=== PATIENT | female | born 1985 | race Caucasian/White ===

== ENCOUNTER → 2017-07-19 16:30 | Outpatient (CLI) | payer BC, SELFPAY ==
[2017-07-19 18:31] LABS: AST(SGOT) 17 U/L (15-37); Alanine Aminotransfer ALT/SGPT 33 U/L (13-56); Albumin, Serum 3.7 g/dL (3.2-5.0); Alkaline Phosphatase 63 U/L (45-117); Anion Gap 7 (5-15); BUN 13 mg/dL (7-18); BUN/Creat Ratio 17.4 RATIO (10-20); CRP < 2.90 mg/L (0.0-3.0); Calcium,Total 8.8 mg/dL (8.5-10.1); Chloride 108 mmol/L (98-107); Creatinine, Serum 0.74 mg/dL (0.55-1.02); EST Glomerular Filtration Rate 97 mL/min (>60); Est Glom Filt Rate - Afr Amer 118 mL/min (>60); Globulin 3.7 g/dL (2.2-4.2); Glucose 82 mg/dL (74-106); Potassium 3.5 mmol/L (3.5-5.1); Protein, Total 7.4 g/dL (6.4-8.2); Rheumatoid Factor < 10.0 IU/mL (<15); Sodium Level 138 mmol/L (136-145)
[2017-07-19 18:34] LABS: Absolute Neutrophil Count 4.3 X10^3/uL (2.0-7.7); Basophil# 0.04 X10^3/uL; Basophil% 0.5 % (0-1); Eosinophil# 0.14 X10^3/uL; Eosinophils% 1.7 % (0-5); Hematocrit 38.3 % (37-47); Hemoglobin 12.4 g/dl (12.0-15.0); Lymphocyte % 35.4 % (19-41); Mean Corp Hgb Conc 32.4 g/gl (32-36); Mean Corpuscular Hgb 32.7 pg (27.0-32.0); Mean Corpuscular Volume 101.1 fL (81-99); Mean Platelet Vol. 9.6 fl (6.2-12.0); Monocyte# 0.77 X10^3/uL; Monocyte% 9.4 % (0-10); Neutrophil # 4.32 X10^3/uL (2.7-7.7); Neutrophil % 52.8 % (47-70); Platelet Count 361 K/mm3 (150-450); RBC Distribution Width CV 12.9 % (11.6-14.6); RBC Distribution Width SD 47.2 fl (35.1-43.9); Red Blood Count 3.79 M/mm3 (4.2-5.4); White Blood Count 8.2 K/mm3 (4.4-11.0)
[2017-07-19 18:39] LABS: POSITIVE COUNT NO; POSITIVE DIFFERENTIAL NO; POSITIVE MORPHOLOGY NO
[2017-07-19 18:42] LABS: Erythrocyte Sedimentation Rate 6 mm/hr (0-20)
[2017-07-21 14:43] LABS: ANTINUCLEAR ANTIBODIES DIRECT Negative (Negative)
[2017-07-26 07:14] LABS: CCP IgG Antibodies 8 units (0-19); HEPATITIS B SURFACE AG Negative (Negative); HLA B27 Negative (.); Hep B Surface Antibodies Reactive (.); Hep C Antibodies <0.1 s/co ratio (0.0-0.9)
== END ==
PROVIDERS: Family Provider Family Medicine; PCP Family Medicine; Visit Provider Internal Medicine Rheumatology
DX: M06.4 Inflammatory polyarthropathy (principal); M21.40 Flat foot [pes planus] (acquired), unspecified foot
CPT/HCPCS: 36415; 80053; 81374; 85025; 85652; 86038; 86140; 86200; 86431; 86706; 86803; 87340

== ENCOUNTER → 2017-10-25 08:49 | Outpatient (CLI) | payer BC, SELFPAY ==
[2017-10-25 10:24] LABS: Absolute Lymphocyte Count 2.88 X10^3/ul (0.83-4.51); Absolute Neutrophil Count 4.9 X10^3/uL (2.0-7.7); Basophil# 0.03 X10^3/uL; Basophil% 0.3 % (0-1); Eosinophil# 0.12 X10^3/uL; Eosinophils% 1.4 % (0-5); Hematocrit 35.6 % (37-47); Hemoglobin 11.7 g/dl (12.0-15.0); Lymphocyte # 2.88 X10^3/ul (4.0); Lymphocyte % 33.1 % (19-41); Mean Corp Hgb Conc 32.9 g/gl (32-36); Mean Corpuscular Hgb 32.1 pg (27.0-32.0); Mean Corpuscular Volume 97.5 fL (81-99); Mean Platelet Vol. 9.5 fl (6.2-12.0); Monocyte# 0.71 X10^3/uL; Monocyte% 8.2 % (0-10); Neutrophil # 4.94 X10^3/uL (2.7-7.7); Neutrophil % 56.8 % (47-70); Platelet Count 341 K/mm3 (150-450); RBC Distribution Width CV 12.4 % (11.6-14.6); RBC Distribution Width SD 44.2 fl (35.1-43.9); Red Blood Count 3.65 M/mm3 (4.2-5.4); White Blood Count 8.7 K/mm3 (4.4-11.0)
[2017-10-25 10:27] LABS: POSITIVE COUNT NO; POSITIVE DIFFERENTIAL NO; POSITIVE MORPHOLOGY NO
[2017-10-25 10:41] LABS: ALB/GLOB Ratio 1.1 RATIO (0.9-2.4); AST(SGOT) 29 U/L (15-37); Alanine Aminotransfer ALT/SGPT 34 U/L (13-56); Albumin, Serum 3.9 g/dL (3.2-5.0); Alkaline Phosphatase 71 U/L (45-117); Anion Gap 7 (5-15); BUN 13 mg/dL (7-18); Calcium,Total 8.6 mg/dL (8.5-10.1); Chloride 103 mmol/L (98-107); Creatinine, Serum 0.76 mg/dL (0.55-1.02); EST Glomerular Filtration Rate 94 mL/min (>60); Est Glom Filt Rate - Afr Amer 114 mL/min (>60); Globulin 3.5 g/dL (2.2-4.2); Glucose 75 mg/dL (74-106); Potassium 3.2 mmol/L (3.5-5.1); Protein, Total 7.4 g/dL (6.4-8.2); Sodium Level 138 mmol/L (136-145)
== END ==
PROVIDERS: Family Provider Family Medicine; PCP Family Medicine; Visit Provider Internal Medicine Rheumatology
DX: M06.4 Inflammatory polyarthropathy (principal); M21.40 Flat foot [pes planus] (acquired), unspecified foot; K21.9 Gastro-esophageal reflux disease without esophagitis; F41.1 Generalized anxiety disorder
CPT/HCPCS: 36415; 80053; 85025

== ENCOUNTER → 2018-01-15 15:40 | Outpatient (CLI) | payer BC, SELFPAY ==
[2018-01-15 17:36] LABS: Absolute Lymphocyte Count 2.35 X10^3/ul (0.83-4.51); Absolute Neutrophil Count 4.5 X10^3/uL (2.0-7.7); Basophil# 0.04 X10^3/uL; Basophil% 0.5 % (0-1); Eosinophil# 0.15 X10^3/uL; Eosinophils% 1.9 % (0-5); Hematocrit 40.8 % (37-47); Hemoglobin 13.4 g/dl (12.0-15.0); Lymphocyte # 2.35 X10^3/ul (4.0); Lymphocyte % 30.2 % (19-41); Mean Corp Hgb Conc 32.8 g/gl (32-36); Mean Corpuscular Volume 100.5 fL (81-99); Mean Platelet Vol. 9.5 fl (6.2-12.0); Monocyte# 0.69 X10^3/uL; Monocyte% 8.9 % (0-10); Neutrophil # 4.54 X10^3/uL (2.7-7.7); Neutrophil % 58.4 % (47-70); Platelet Count 370 K/mm3 (150-450); RBC Distribution Width CV 12.3 % (11.6-14.6); RBC Distribution Width SD 44.8 fl (35.1-43.9); Red Blood Count 4.06 M/mm3 (4.2-5.4); White Blood Count 7.8 K/mm3 (4.4-11.0)
[2018-01-15 17:38] LABS: POSITIVE COUNT NO; POSITIVE DIFFERENTIAL NO; POSITIVE MORPHOLOGY NO
[2018-01-15 17:51] LABS: ALB/GLOB Ratio 0.9 RATIO (0.9-2.4); AST(SGOT) 24 U/L (15-37); Alanine Aminotransfer ALT/SGPT 38 U/L (13-56); Albumin, Serum 3.7 g/dL (3.2-5.0); Alkaline Phosphatase 73 U/L (45-117); Anion Gap 6 (5-15); BUN 10 mg/dL (7-18); BUN/Creat Ratio 11.5 RATIO (10-20); Calcium,Total 8.7 mg/dL (8.5-10.1); Chloride 107 mmol/L (98-107); Creatinine, Serum 0.87 mg/dL (0.55-1.02); EST Glomerular Filtration Rate 81 mL/min (>60); Est Glom Filt Rate - Afr Amer 98 mL/min (>60); Globulin 4.2 g/dL (2.2-4.2); Glucose 87 mg/dL (74-106); Potassium 3.8 mmol/L (3.5-5.1); Protein, Total 7.9 g/dL (6.4-8.2); Sodium Level 139 mmol/L (136-145)
== END ==
PROVIDERS: Family Provider Family Medicine; PCP Family Medicine; Visit Provider Internal Medicine Rheumatology
DX: M06.4 Inflammatory polyarthropathy (principal); Z79.899 Other long term (current) drug therapy; M21.40 Flat foot [pes planus] (acquired), unspecified foot; K21.9 Gastro-esophageal reflux disease without esophagitis; F41.1 Generalized anxiety disorder
CPT/HCPCS: 36415; 80053; 85025

== ENCOUNTER → 2018-08-07 11:07 | Outpatient (CLI) | payer BC, SELFPAY ==
[2018-08-07 12:38] LABS: Absolute Lymphocyte Count 2.95 X10^3/ul (0.83-4.51); Absolute Neutrophil Count 6.4 X10^3/uL (2.0-7.7); Basophil# 0.05 X10^3/uL; Basophil% 0.5 % (0-1); Eosinophil# 0.14 X10^3/uL; Eosinophils% 1.4 % (0-5); Hematocrit 42.3 % (37-47); Hemoglobin 13.7 g/dl (12.0-15.0); Lymphocyte # 2.95 X10^3/ul (4.0); Lymphocyte % 29.1 % (19-41); Mean Corp Hgb Conc 32.4 g/gl (32-36); Mean Corpuscular Hgb 31.6 pg (27.0-32.0); Mean Corpuscular Volume 97.7 fL (81-99); Mean Platelet Vol. 9.6 fl (6.2-12.0); Monocyte# 0.62 X10^3/uL; Monocyte% 6.1 % (0-10); Neutrophil # 6.35 X10^3/uL (2.7-7.7); Neutrophil % 62.7 % (47-70); Platelet Count 399 K/mm3 (150-450); RBC Distribution Width CV 12.8 % (11.6-14.6); RBC Distribution Width SD 46.1 fl (35.1-43.9); Red Blood Count 4.33 M/mm3 (4.2-5.4); White Blood Count 10.1 K/mm3 (4.4-11.0)
[2018-08-07 12:40] LABS: POSITIVE COUNT NO; POSITIVE DIFFERENTIAL NO; POSITIVE MORPHOLOGY NO
[2018-08-07 12:54] LABS: AST(SGOT) 39 U/L (15-37); Alanine Aminotransfer ALT/SGPT 62 U/L (13-56); Albumin, Serum 4.1 g/dL (3.2-5.0); Alkaline Phosphatase 92 U/L (45-117); Anion Gap 11 (5-15); BUN 10 mg/dL (7-18); Calcium,Total 9.2 mg/dL (8.5-10.1); Chloride 104 mmol/L (98-107); Creatinine, Serum 0.91 mg/dL (0.55-1.02); EST Glomerular Filtration Rate 77 mL/min (>60); Est Glom Filt Rate - Afr Amer 93 mL/min (>60); Glucose 87 mg/dL (74-106); Potassium 3.7 mmol/L (3.5-5.1); Protein, Total 8.1 g/dL (6.4-8.2); Sodium Level 141 mmol/L (136-145)
== END ==
PROVIDERS: Family Provider Family Medicine; PCP Family Medicine; Referring Provider Internal Medicine Rheumatology; Visit Provider Internal Medicine Rheumatology
DX: M06.4 Inflammatory polyarthropathy (principal); Z79.899 Other long term (current) drug therapy; M21.40 Flat foot [pes planus] (acquired), unspecified foot; K21.9 Gastro-esophageal reflux disease without esophagitis; F41.1 Generalized anxiety disorder
CPT/HCPCS: 36415; 80053; 85025

== ENCOUNTER → 2018-10-23 08:28 | Outpatient (CLI) | payer BC, SELFPAY ==
[2018-10-23 10:19] LABS: Absolute Lymphocyte Count 3.28 X10^3/ul (0.83-4.51); Absolute Neutrophil Count 7.5 X10^3/uL (2.0-7.7); Basophil# 0.04 X10^3/uL; Basophil% 0.3 % (0-1); Eosinophil# 0.15 X10^3/uL; Eosinophils% 1.3 % (0-5); Hematocrit 41.4 % (37-47); Hemoglobin 13.9 g/dl (12.0-15.0); Lymphocyte # 3.28 X10^3/ul (4.0); Mean Corp Hgb Conc 33.6 g/gl (32-36); Mean Corpuscular Hgb 31.7 pg (27.0-32.0); Mean Corpuscular Volume 94.3 fL (81-99); Mean Platelet Vol. 9.5 fl (6.2-12.0); Monocyte# 0.78 X10^3/uL; Monocyte% 6.6 % (0-10); Neutrophil # 7.46 X10^3/uL (2.7-7.7); Neutrophil % 63.6 % (47-70); Platelet Count 420 K/mm3 (150-450); RBC Distribution Width CV 12.5 % (11.6-14.6); RBC Distribution Width SD 42.4 fl (35.1-43.9); Red Blood Count 4.39 M/mm3 (4.2-5.4); White Blood Count 11.7 K/mm3 (4.4-11.0)
[2018-10-23 10:25] LABS: POSITIVE COUNT NO; POSITIVE DIFFERENTIAL NO; POSITIVE MORPHOLOGY NO
[2018-10-23 10:55] LABS: ALB/GLOB Ratio 1.1 RATIO (0.9-2.4); AST(SGOT) 31 U/L (15-37); Alanine Aminotransfer ALT/SGPT 49 U/L (13-56); Albumin, Serum 3.8 g/dL (3.2-5.0); Alkaline Phosphatase 87 U/L (45-117); Anion Gap 6 (5-15); BUN 11 mg/dL (7-18); BUN/Creat Ratio 11.3 RATIO (10-20); Calcium,Total 8.7 mg/dL (8.5-10.1); Chloride 105 mmol/L (98-107); Creatinine, Serum 0.98 mg/dL (0.55-1.02); EST Glomerular Filtration Rate 71 mL/min (>60); Est Glom Filt Rate - Afr Amer 86 mL/min (>60); Globulin 3.6 g/dL (2.2-4.2); Glucose 85 mg/dL (74-106); Potassium 3.1 mmol/L (3.5-5.1); Protein, Total 7.4 g/dL (6.4-8.2); Sodium Level 138 mmol/L (136-145)
== END ==
PROVIDERS: Family Provider Family Medicine; PCP Family Medicine; Referring Provider Internal Medicine Rheumatology; Visit Provider Internal Medicine Rheumatology
DX: M06.4 Inflammatory polyarthropathy (principal); Z79.899 Other long term (current) drug therapy; M21.40 Flat foot [pes planus] (acquired), unspecified foot; K21.9 Gastro-esophageal reflux disease without esophagitis; F41.1 Generalized anxiety disorder
CPT/HCPCS: 36415; 80053; 85025

== ENCOUNTER → 2018-12-26 16:07 | Outpatient (CLI) | payer BC, SELFPAY ==
[2018-12-26 18:00] LABS: Absolute Lymphocyte Count 3.01 X10^3/uL (0.83-4.51); Absolute Neutrophil Count 6.3 X10^3/uL (2.0-7.7); Basophil# 0.07 X10^3/uL; Basophil% 0.7 % (0-1); Eosinophil# 0.12 X10^3/uL; Eosinophils% 1.2 % (0-5); Hemoglobin 13.4 g/dL (12.0-15.0); Lymphocyte # 3.01 X10^3/ul (4.0); Lymphocyte % 29.5 % (19-41); Mean Corp Hgb Conc 33.5 g/dL (32-36); Mean Corpuscular Hgb 32.3 pg (27.0-32.0); Mean Corpuscular Volume 96.4 fL (81-99); Mean Platelet Vol. 9.9 fl (6.2-12.0); Monocyte# 0.64 X10^3/uL; Monocyte% 6.3 % (0-10); NRBC Flagged by Analyzer 0 % (0-5); Neutrophil # 6.32 X10^3/uL (2.7-7.7); Platelet Count 354 K/mm3 (150-450); RBC Distribution Width CV 12.8 % (11.6-14.6); RBC Distribution Width SD 45.4 fl (35.1-43.9); Red Blood Count 4.15 M/mm3 (4.2-5.4); White Blood Count 10.2 K/mm3 (4.4-11.0)
[2018-12-26 18:04] LABS: AST(SGOT) 38 U/L (15-37); Alanine Aminotransfer ALT/SGPT 69 U/L (13-56); Albumin, Serum 3.7 g/dL (3.2-5.0); Alkaline Phosphatase 90 U/L (45-117); Anion Gap 9 (5-15); BUN 11 mg/dL (7-18); BUN/Creat Ratio 10.7 RATIO (10-20); Calcium,Total 9.2 mg/dL (8.5-10.1); Chloride 105 mmol/L (98-107); Creatinine, Serum 1.03 mg/dL (0.55-1.02); EST Glomerular Filtration Rate 66 mL/min (>60); Est Glom Filt Rate - Afr Amer 80 mL/min (>60); Globulin 3.7 g/dL (2.2-4.2); Glucose 83 mg/dL (74-106); Potassium 3.8 mmol/L (3.5-5.1); Protein, Total 7.4 g/dL (6.4-8.2); Sodium Level 138 mmol/L (136-145)
== END ==
PROVIDERS: Family Provider Family Medicine; PCP Family Medicine; Referring Provider Internal Medicine Rheumatology; Visit Provider Internal Medicine Rheumatology
DX: M06.4 Inflammatory polyarthropathy (principal); Z79.899 Other long term (current) drug therapy; M21.40 Flat foot [pes planus] (acquired), unspecified foot; K21.9 Gastro-esophageal reflux disease without esophagitis; F41.1 Generalized anxiety disorder
CPT/HCPCS: 36415; 80053; 85025

== ENCOUNTER → 2019-01-31 16:28 | Outpatient (CLI) | payer BC, SELFPAY ==
[2019-01-31 17:49] LABS: ALB/GLOB Ratio 0.9 RATIO (0.9-2.4); AST(SGOT) 70 U/L (15-37); Alanine Aminotransfer ALT/SGPT 101 U/L (13-56); Albumin, Serum 3.6 g/dL (3.2-5.0); Alkaline Phosphatase 104 U/L (45-117); Anion Gap 8 (5-15); BUN 13 mg/dL (7-18); Calcium,Total 8.8 mg/dL (8.5-10.1); Chloride 106 mmol/L (98-107); Creatinine, Serum 0.87 mg/dL (0.55-1.02); EST Glomerular Filtration Rate 81 mL/min (>60); Est Glom Filt Rate - Afr Amer 98 mL/min (>60); Globulin 3.8 g/dL (2.2-4.2); Glucose 88 mg/dL (74-106); Potassium 3.8 mmol/L (3.5-5.1); Protein, Total 7.4 g/dL (6.4-8.2); Sodium Level 139 mmol/L (136-145)
== END ==
PROVIDERS: Family Provider Family Medicine; PCP Family Medicine; Referring Provider Internal Medicine Rheumatology; Visit Provider Internal Medicine Rheumatology
DX: M06.4 Inflammatory polyarthropathy (principal); Z79.899 Other long term (current) drug therapy; M21.40 Flat foot [pes planus] (acquired), unspecified foot; K21.9 Gastro-esophageal reflux disease without esophagitis; F41.1 Generalized anxiety disorder
CPT/HCPCS: 36415; 80053

== ENCOUNTER → 2019-02-04 15:16 | Outpatient (CLI) | payer BC, SELFPAY ==
--- NOTE | 2019-02-04 15:24 | RAD_ITS ---
STUDY: X-RAY CHEST REASON FOR EXAM: Female, 33 years old. Long-term drug use, patient states history of arthritis. TECHNIQUE: PA and lateral views of the chest. COMPARISON: None. FINDINGS: The lungs are clear, but incompletely expanded. There is no demonstrated pleural abnormality. Normal size heart. Minor fullness of the right cardiophrenic angle suggest a mildly prominent epicardial fat pad. Normal mediastinum and sherrill. Normal visualized pulmonary arteries. Normal visualized aortic arch and descending thoracic aorta. There are degenerative changes of the mid thoracic spine. Normal visualized ribs, clavicles, and shoulders. There is no demonstrated abnormality of the visualized soft tissue structures of the upper abdomen. RAD/Chest PA and Lateral IMPRESSION: No acute cardiopulmonary disease. Electronically Signed: Shakir Mireles MD at 16:25 EDT , Service support ,
[2019-02-07 03:06] LABS: QNTFERON TB Mitogen Value > 10.00 IU/mL (.); QNTFERON TB Nil Value 0.03 IU/mL (.); QNTFERON TB1+ Ag Value 0.03 IU/mL (.); QNTFERON TB2+ Ag Value 0.03 IU/mL (.)
[2019-02-07 12:59] LABS: QNTIFERON TB Positive Criteria Negative (Negative)
== END ==
PROVIDERS: Family Provider Family Medicine; PCP Family Medicine; Referring Provider Internal Medicine Rheumatology; Visit Provider Internal Medicine Rheumatology
DX: M06.4 Inflammatory polyarthropathy (principal); Z79.899 Other long term (current) drug therapy; M21.40 Flat foot [pes planus] (acquired), unspecified foot; K21.9 Gastro-esophageal reflux disease without esophagitis; F41.1 Generalized anxiety disorder; K76.0 Fatty (change of) liver, not elsewhere classified
CPT/HCPCS: 36415; 71046; 86480

== ENCOUNTER → 2019-05-13 17:11 | Outpatient (CLI) | payer BC, SELFPAY ==
[2019-05-13 18:00] LABS: Absolute Lymphocyte Count 2.52 X10^3/uL (0.83-4.51); Absolute Neutrophil Count 4.6 X10^3/uL (2.0-7.7); Basophil# 0.04 X10^3/uL; Basophil% 0.5 % (0-1); Eosinophil# 0.14 X10^3/uL; Eosinophils% 1.8 % (0-5); Hematocrit 41.7 % (37-47); Hemoglobin 13.7 g/dL (12.0-15.0); Lymphocyte # 2.52 X10^3/ul (4.0); Mean Corp Hgb Conc 32.9 g/dL (32-36); Mean Corpuscular Hgb 32.4 pg (27.0-32.0); Mean Corpuscular Volume 98.6 fL (81-99); Mean Platelet Vol. 9.3 fl (6.2-12.0); Monocyte# 0.54 X10^3/uL; Monocyte% 6.9 % (0-10); NRBC Flagged by Analyzer 0 % (0-5); Neutrophil # 4.61 X10^3/uL (2.7-7.7); Neutrophil % 58.4 % (47-70); Platelet Count 316 K/mm3 (150-450); RBC Distribution Width CV 12.7 % (11.6-14.6); RBC Distribution Width SD 45.9 fl (35.1-43.9); Red Blood Count 4.23 M/mm3 (4.2-5.4); White Blood Count 7.9 K/mm3 (4.4-11.0)
[2019-05-13 18:26] LABS: ALB/GLOB Ratio 0.9 RATIO (0.9-2.4); AST(SGOT) 66 U/L (15-37); Alanine Aminotransfer ALT/SGPT 97 U/L (13-56); Albumin, Serum 3.6 g/dL (3.2-5.0); Alkaline Phosphatase 95 U/L (45-117); Anion Gap 3 (5-15); BUN 9 mg/dL (7-18); BUN/Creat Ratio 9.9 RATIO (10-20); Calcium,Total 9.5 mg/dL (8.5-10.1); Chloride 107 mmol/L (98-107); Creatinine, Serum 0.91 mg/dL (0.55-1.02); EST Glomerular Filtration Rate 76 mL/min (>60); Est Glom Filt Rate - Afr Amer 92 mL/min (>60); Globulin 3.8 g/dL (2.2-4.2); Glucose 75 mg/dL (74-106); Potassium 3.7 mmol/L (3.5-5.1); Protein, Total 7.4 g/dL (6.4-8.2); Sodium Level 139 mmol/L (136-145)
== END ==
PROVIDERS: Family Provider Family Medicine; PCP Family Medicine; Referring Provider Internal Medicine Rheumatology; Visit Provider Internal Medicine Rheumatology
DX: M06.09 Rheumatoid arthritis without rheumatoid factor, multiple sites (principal); Z79.899 Other long term (current) drug therapy; M21.40 Flat foot [pes planus] (acquired), unspecified foot; K21.9 Gastro-esophageal reflux disease without esophagitis; F41.1 Generalized anxiety disorder; K76.0 Fatty (change of) liver, not elsewhere classified
CPT/HCPCS: 36415; 80053; 85025

== ENCOUNTER → 2020-04-13 14:08 | Outpatient (CLI) | payer BC, SELFPAY ==
[2020-04-13 17:17] LABS: Vitamin B12 589 pg/mL (211-911); Vitamin D,25 Hydroxy 28.7 ng/mL
[2020-04-13 17:22] LABS: ALB/GLOB Ratio 0.9 RATIO (0.9-2.4); AST(SGOT) 108 U/L (15-37); Alanine Aminotransfer ALT/SGPT 140 U/L (13-56); Albumin, Serum 3.5 g/dL (3.2-5.0); Alkaline Phosphatase 87 U/L (45-117); Anion Gap 7 (5-15); BUN 8 mg/dL (7-18); BUN/Creat Ratio 9.2 RATIO (10-20); Calcium,Total 8.9 mg/dL (8.5-10.1); Chloride 109 mmol/L (98-107); Creatinine, Serum 0.87 mg/dL (0.55-1.02); EST Glomerular Filtration Rate 80 mL/min (>60); Est Glom Filt Rate - Afr Amer 97 mL/min (>60); Globulin 3.8 g/dL (2.2-4.2); Glucose 84 mg/dL (74-106); Potassium 3.6 mmol/L (3.5-5.1); Protein, Total 7.3 g/dL (6.4-8.2); Sodium Level 143 mmol/L (136-145); T4 Free Direct 0.75 ng/dL (0.76-1.46); Thyroid Stim Hormone (TSH) 1.76 uIU/mL (0.358-3.74)
== END ==
PROVIDERS: PCP Family Medicine; Visit Provider Family Medicine
DX: L29.9 Pruritus, unspecified (principal); G62.9 Polyneuropathy, unspecified; M06.9 Rheumatoid arthritis, unspecified
CPT/HCPCS: 36415; 80053; 82306; 82607; 84439; 84443

== ENCOUNTER → 2020-05-22 14:06 | Outpatient (CLI) | payer BC, SELFPAY ==
[2020-05-22 16:57] LABS: Basophil# 0.06 X10^3/uL; Basophil% 1.1 % (0-1); Eosinophil# 0.08 X10^3/uL; Eosinophils% 1.4 % (0-5); Hematocrit 40.1 % (37-47); Hemoglobin 13.5 g/dL (12.0-15.0); Lymphocyte % 34.1 % (19-41); Mean Corp Hgb Conc 33.7 g/dL (32-36); Mean Corpuscular Volume 103.9 fL (81-99); Mean Platelet Vol. 10.3 fl (6.2-12.0); Monocyte# 0.48 X10^3/uL; Monocyte% 8.6 % (0-10); NRBC Flagged by Analyzer 0 % (0-5); Neutrophil # 3.02 X10^3/uL (2.7-7.7); Neutrophil % 54.1 % (47-70); Platelet Count 306 K/mm3 (150-450); RBC Distribution Width SD 49.3 fl (35.1-43.9); Red Blood Count 3.86 M/mm3 (4.2-5.4); White Blood Count 5.6 K/mm3 (4.4-11.0)
[2020-05-22 17:14] LABS: ALB/GLOB Ratio 0.9 RATIO (0.9-2.4); AST(SGOT) 125 U/L (15-37); Alanine Aminotransfer ALT/SGPT 192 U/L (13-56); Albumin, Serum 3.5 g/dL (3.2-5.0); Alkaline Phosphatase 103 U/L (45-117); Anion Gap 7 (5-15); BUN 7 mg/dL (7-18); BUN/Creat Ratio 8.3 RATIO (10-20); Calcium,Total 8.7 mg/dL (8.5-10.1); Chloride 109 mmol/L (98-107); Creatinine, Serum 0.85 mg/dL (0.55-1.02); EST Glomerular Filtration Rate 82 mL/min (>60); Est Glom Filt Rate - Afr Amer 100 mL/min (>60); Globulin 3.8 g/dL (2.2-4.2); Glucose 93 mg/dL (74-106); Potassium 3.4 mmol/L (3.5-5.1); Protein, Total 7.3 g/dL (6.4-8.2); Sodium Level 142 mmol/L (136-145)
[2020-05-25 09:14] LABS: Hepatitis B Surface Antigen Non-Reactive (Nonreactive); Hepatitis C Antibody Non-Reactive (Nonreactive)
== END ==
PROVIDERS: Visit Provider Family Medicine
DX: R74.01 Elevation of levels of liver transaminase levels (principal)
CPT/HCPCS: 36415; 80053; 85025; 86803; 87340

== ENCOUNTER → 2021-04-14 17:10 | Outpatient (CLI) | payer SELFPAY, BC ==
--- NOTE | 2021-04-14 17:19 | US_ITS ---
History: Hyperthyroidism Thyroid ultrasound: Findings: Right thyroid lobe measures 4.7 x 1.6 x 1.9 cm. Left lobe measures 4.0 x 1.7 x 1.5 cm. The isthmus measures 2 mm in AP dimension. Thyroid echogenicity is diffusely heterogeneous. 8 mm right thyroid nodule noted. This nodule is of uncertain composition due to calcification, is of indeterminate echogenicity, [id number], is lobulated or irregular and is peripherally calcified. This nodule is highly suspicious. Recommend annual follow-up thyroid ultrasound. 7 mm nodule arises from the lower pole of the right thyroid gland This nodule is solid or almost completely solid, hypoechoic, [id number], smoothly marginated and contains no echogenic foci. This nodule is highly suspicious but no FNA or follow-up is necessary given the small size of this nodule. No cervical lymphadenopathy. US/Thyroid IMPRESSION: Diffusely abnormal thyroid echogenicity suggestive of thyroiditis. Densely calcified 8 mm and hypoechoic 7 mm right thyroid nodules. Recommend 12 month follow-up. at 0911 Reported and signed by: Messi Lambert MD Electronically Signed: Messi Lambert MD at 9:10 EDT Tel , Service support ,
== END ==
PROVIDERS: PCP Family Medicine; Visit Provider Family Medicine
DX: E04.0 Nontoxic diffuse goiter (principal)
CPT/HCPCS: 76536

== ENCOUNTER → 2021-12-30 | Outpatient (CLI) | payer BC, SELFPAY ==
[2021-12-30 12:45] LABS: T4 Free Direct 0.79 ng/dL (0.76-1.46); Thyroid Stim Hormone (TSH) 2.82 uIU/mL (0.358-3.74)
[2021-12-31 14:31] LABS: Thyroid Peroxidase AB 8 IU/mL (0-34)
== END | disposition home or self-care (01) ==
LOC: BIMLAB 10:57
PROVIDERS: Internal Medicine Endocrinology, Diabetes & Metabolism; PCP Family Medicine; Referring Provider Family Medicine; Visit Provider Family Medicine
DX: R00.0 Tachycardia, unspecified (principal); E04.1 Nontoxic single thyroid nodule
CPT/HCPCS: 36415; 84439; 84443; 84481; 86376

== ENCOUNTER → 2022-05-11 | Outpatient (CLI) | payer BC, SELFPAY ==
--- NOTE | 2022-05-11 15:38 | US_ITS ---
STUDY: THYROID ULTRASOUND REASON FOR EXAM: Female, 36 years old. Compare 2020 -- nodules TECHNIQUE: Ultrasound evaluation of the thyroid was performed with real-time and static mosquera-scale imaging. COMPARISON: 04/14/2021 FINDINGS: RIGHT LOBE: The right lobe of the thyroid gland measures 4.3 x 1.9 x 1.3 cm. There is a heterogeneous echotexture. Nodule 1: No change in the 7 x 5 x 4 mm solid hypoechoic wider than tall smoothly marginated nodule with peripheral calcifications (TR 4) consistent with an adenoma. Nodule 2: No change in the 4 x 4 by 4 mm solid hypoechoic wider than tall smoothly marginated nodule and no echogenic foci (TR 4) in the inferior right lobe consistent with an adenoma. LEFT LOBE: The left lobe of the thyroid gland measures 3.9 x 1.5 x 1.3 cm. There is a heterogeneous echotexture. There are no demonstrated solid, cystic or complex lesions. ISTHMUS: The isthmus measures 3 mm thick. . The regional lymph nodes are normal. US/Thyroid IMPRESSION: No change in thyroiditis with small adenomas. Electronically Signed: Moustapha Burroughs MD at 9:05 EST ,
== END | disposition home or self-care (01) ==
LOC: US 15:37
PROVIDERS: PCP Family Medicine; Referring Provider Internal Medicine Endocrinology, Diabetes & Metabolism; Visit Provider Internal Medicine Endocrinology, Diabetes & Metabolism
DX: E04.2 Nontoxic multinodular goiter (principal)
CPT/HCPCS: 76536

== ENCOUNTER 2022-06-16 20:32 | Inpatient (IN) | payer BC, SELFPAY ==
[2022-06-16 20:33] VITALS: BP 137/92; PULSE 120; RESP 18; TEMP 36.3; O2SAT 96; BMI 35.6
[2022-06-16 21:34] LABS: Mucous, Urine 0 SEEN /hpf (<or=2+); Red Blood Cells-Urine 0 SEEN /hpf (0-5)
[2022-06-16 21:37] LABS: Color, Urine Amber (Yellow); Glucose, Dipstick Normal (Normal); Ketone-Dipstick 15 mg/dl (Negative); Leukocyte Esterase-Dipstick 500 /ul (Negative); Nitrite-Dipstick Positive (Negative); Occult Blood-Urine 10 /ul (Negative); Protein-Dipstick 30 mg/dl (Negative); Specific Gravity, Urine 1.005 (1.002-1.030); Urine Clarity Sl. Cloudy (Clear); Urine Urobilinogen 8 mg/dl (Normal)
[2022-06-16 21:42] LABS: Urine Bilirubin Dipstick 6 mg/dL (Negative)
[2022-06-16 21:53] LABS: Hematocrit 35.9 % (37-47); Hemoglobin 12.3 g/dL (12.0-15.0); Mean Corp Hgb Conc 34.3 g/dL (32-36); Mean Corpuscular Hgb 35.5 pg (27.0-32.0); Mean Corpuscular Volume 103.8 fL (81-99); Mean Platelet Vol. 10.2 fl (6.2-12.0); POSITIVE COUNT YES; POSITIVE DIFFERENTIAL YES; POSITIVE MORPHOLOGY YES; Platelet Count 426 K/mm3 (150-450); RBC Distribution Width CV 14.6 % (11.6-14.6); RBC Distribution Width SD 54.3 fl (35.1-43.9); Red Blood Count 3.46 M/mm3 (4.2-5.4); White Blood Count 17.5 K/mm3 (4.4-11.0)
[2022-06-16 22:01] LABS: Bacteria RARE /hpf (None Seen); Squamous Epithelial Cells - UA 0-5 SEEN /hpf (5-10); White Blood Cells 0-5 SEEN /hpf (0-5)
[2022-06-16 22:01] LABS: Differential Indicated MANUAL DIFF
--- NOTE | 2022-06-16 22:02 | EKG12_ITS ---
Test Reason : DYSRHYTHMIA Blood Pressure : / mmHG Vent. Rate : 111 BPM Atrial Rate : 111 BPM P-R Int : 124 ms QRS Dur : 090 ms QT Int : 336 ms P-R-T Axes : 061 021 006 degrees QTc Int : 456 ms Sinus tachycardia Nonspecific T wave abnormality Abnormal ECG Confirmed by ROCIO LOZANO, GILMA ([id number]), manager editorial TREY VAZQUEZ ([id number]) on 06/20/2022 10:52:01 AM Referred By: PL Confirmed By:HAILEE CHAN MD
--- NOTE | 2022-06-16 22:06 | EX.ED.DYSGE1 ---
HPI History of Present Illness Chief Complaint: Abd Pain Informant: patient Narrative Narrative: Patient presents saying her jaundiced is not better and she feels bloated. She is not really having abdominal pain. Patient states she started feeling ill about 2 weeks ago. She had some myalgias and hot and cold sensations but no fever. She had COVID and influenza is tested a couple times that are negative. A week after the onset of the symptoms, she started to become jaundiced. She went to [facility]. She was admitted last through Monday. She states they diagnosed her with dehydration, low magnesium liquids medicines for nausea. They did a CAT scan of her abdomen. They said her liver was inflamed. She does not know if they did a little hepatitis screens. She has follow-up with networking specialist on the of this month. Patient does drink alcohol. She used to be a heavy drinker. But she states for the last couple years she only has about 1 glass of vodka in the evening. When she holds up her fingers it looks like there is glass would likely be 4 or 5 shots in a day. She does not get withdrawal if she does not drink. She will take Tylenol but only once or twice during the day. Never more. She states she was given Tylenol in the hospital also. This is because she has rheumatoid arthritis and commonly has joint pain. Only abdominal surgery was . She denies any history of hepatitis in the past. She denies any history of cirrhosis. She denies any bleeding problems. Nothing makes her symptoms better and worse. When she went in the hospital she had nausea and vomiting but Zofran has helped this and she is able to eat and drink now. She is moving her bowels. They are not light-colored or changed. There is no blood. She was also treated for urinary tract infection. She states she no longer has dysuria or burning. She is taking her cefdinir as prescribed. [facility] Medical History Multinodular goiter Home Medications cyclobenzaprine 10 mg tablet 10 mg PO BID 01/29/14 [History Last Taken Unknown] famotidine 20 mg tablet 20 mg PO DAILY 01/29/14 [History Last Taken 02/05/14 07:00] multivitamin,tu-cyci-fbhyfhjz 27 mg-0.4 mg tablet 1 tab PO DAILY 01/29/14 [History Last Taken Unknown] tramadol 50 mg tablet 50 mg PO TID 01/29/14 [History Last Taken Unknown] vitamin B complex-folic acid 0.4 mg tablet 0.4 mg PO DAILY 01/29/14 [History Last Taken Unknown] etodolac 400 mg tablet 400 mg PO BID 12/28/17 [History Last Taken Unknown] hydroxychloroquine 200 mg tablet (Plaquenil) 200 mg PO BID 12/28/17 [History Last Taken Unknown] loratadine 10 mg tablet (Claritin) 10 mg PO QDAY 12/28/17 [History Last Taken Unknown] sulfasalazine 500 mg tablet 0.5 g PO QDAY 12/28/17 [History Last Taken Unknown] etodolac 500 mg tablet 500 mg PO 11/19/21 [History Last Taken Unknown] omeprazole 40 mg capsule,delayed release 40 mg PO 11/19/21 [History Last Taken Unknown] Allergy/AdvReac Type Severity Reaction Status Date / Time No Known Allergies Allergy Verified 06/16/22 20:33 Social History Smoking Status: Current every day smoker tobacco type: cigarettes EXAM Physical Exam Narrative Exam Narrative: Patient is awake and alert. She is jaundiced but does not look toxic or acutely ill or septic. She carries on a normal conversation. She is not at all confused or lethargic. HEENT does show changes of jaundice and icterus. Mucous membranes are mildly dry. No JVD. Lungs are completely clear throughout. Heart is about 105 bpm but sounds regular. I hear no murmur. Peripheral pulses are equal. Abdomen shows really no tenderness. Her liver does seem to be firm and somewhat enlarged especially toward the medial aspect. I get no rebound or guarding. No CVA tenderness. No notable suprapubic tenderness. Extremities show no abnormal bruising of significance. No swelling. Neurologic exam shows her to be awake alert and appropriate not at all confused or lethargic. Const Vital Signs: 06/16/22 20:33 06/16/22 22:18 Temperature 97.3 F L Temperature Source Temporal Pulse Rate 120 H Respiratory Rate 18 18 Blood Pressure 137/92 H Blood Pressure Mean 107 Pulse Ox 96 100 Oxygen Delivery Method Room Air Room Air MDM MDM MDM Narrative Medical decision making narrative: My independent interpretation of the CT scan does show very enlarged liver. There seems to be some slight fluid around the rim. There is also some edema around the gallbladder. No sign of obstruction. I do not see free air. Reading of radiologist does show this. They think the gallbladder changes are likely due to the liver injury not acute cholecystitis. They do not see stones. Patient CBC shows significantly elevated white count at 17.5. Hemoglobin is normal. Platelets are still normal at 426. Electrolytes show mildly low potassium at 2.9. We will initiate some replacement. BUN and creatinine are normal. Lactic acid cannot be done due to her very high bilirubin level. Liver function test do show quite high bilirubin over 14. She has mild to moderate elevation of AST ALT and alkaline phosphatase. Alcohol is negative. Lipase is negative. is negative. INR is normal at 1.2. I was able to send for and received by fax records from her recent admission to [facility]. She had a bilirubin of 6.8 at the time. She had significant fatty liver. Her INR had been 1.4. Although the INR is better, she has significant worsening of her hepatic function. This may be due to cefdinir in the face of already ongoing hepatic injury. I do not have reports of hepatitis panel but there is more paperwork coming. I then discussed this case directly with our networking specialist, Dr. López. He recommended further studies which have been ordered and are pending. He also recommended initiating Mucomyst as it is beneficial for drug-induced hepatocellular injury not just Tylenol injury. I have also discussed the case with our hospitalist. This is a complex patient. She has multiple medical problems including a history of alcohol use. But her elevated liver test are too high for what would typically seen with just alcoholic hepatitis. She will need to come in the hospital to follow INR and recovery. We will hold the cefdinir. She may end up needing further evaluation and possible biopsy. Lab Data Attestation: I reviewed the patient's lab results. Labs: Laboratory Results - last 24 hr 06/16/22 06/16/22 06/16/22 21:30 21:43 21:43 WBC 17.5 H RBC 3.46 L Hgb 12.3 Hct 35.9 L MCV 103.8 H MCH 35.5 H MCHC 34.3 RDW Std Deviation 54.3 H RDW Coeff of Rebeka 14.6 Plt Count 426 MPV 10.2 Neut % (Auto) Not Reportable Absolute Neuts (auto) 10.3 H Absolute Lymphs (auto) 4.73 H Total Counted 100 Neutrophils % (Manual) 57 Band Neutrophils % 2 Lymphocytes % (Manual) 27 Monocytes % (Manual) 11 H Metamyelocytes % 2 H Myelocytes % 1 H Diff Path Review May foll Polychromasia RARE Hypochromasia 1+ Target Cells 1+ PT INR Sodium 133 L Potassium 2.9 L Chloride 97 L Carbon Dioxide 23.0 Anion Gap 13 BUN 3 L Creatinine 0.78 Estim Creat Clear Calc 80.38 Est GFR (MDRD) Af Amer 109 Est GFR (MDRD) Non-Af 90 BUN/Creatinine Ratio 3.9 L Glucose 90 Lactic Acid Calcium 9.9 Magnesium Total Bilirubin Direct Bilirubin AST ALT Alkaline Phosphatase Total Protein Albumin Globulin Lipase Serum , Qual Urine Color Shavon Urine Clarity Sl. Cloudy Urine pH 7.0 Ur Specific Brilliant 1.005 Urine Protein 30 H Urine Glucose (UA) Normal Urine Ketones 15 H Urine Occult Blood 10 H Urine Nitrite Positive H Urine Bilirubin 6 H Urine Urobilinogen 8 H Ur Leukocyte Esterase 500 H Urine RBC 0 SEEN Urine WBC 0-5 SEEN Ur Squamous Epith Cells 0-5 SEEN Urine Bacteria RARE Urine Mucus 0 SEEN Ethyl Alcohol 06/16/22 06/16/22 06/16/22 21:43 22:12 22:12 WBC RBC Hgb Hct MCV MCH MCHC RDW Std Deviation RDW Coeff of Rebeka Plt Count MPV Neut % (Auto) Absolute Neuts (auto) Absolute Lymphs (auto) Total Counted Neutrophils % (Manual) Band Neutrophils % Lymphocytes % (Manual) Monocytes % (Manual) Metamyelocytes % Myelocytes % Diff Path Review Polychromasia Hypochromasia Target Cells PT 15.3 H INR 1.2 Sodium Potassium Chloride Carbon Dioxide Anion Gap BUN Creatinine Estim Creat Clear Calc Est GFR (MDRD) Af Amer Est GFR (MDRD) Non-Af BUN/Creatinine Ratio Glucose Lactic Acid Calcium Magnesium 2.0 Total Bilirubin 14.60 H Direct Bilirubin 12.38 H AST 568 H ALT 117 H Alkaline Phosphatase 294 H Total Protein 6.7 Albumin 2.8 L Globulin 3.9 Lipase 123 Serum , Qual NEGATIVE Urine Color Urine Clarity Urine pH Ur Specific Brilliant Urine Protein Urine Glucose (UA) Urine Ketones Urine Occult Blood Urine Nitrite Urine Bilirubin Urine Urobilinogen Ur Leukocyte Esterase Urine RBC Urine WBC Ur Squamous Epith Cells Urine Bacteria Urine Mucus Ethyl Alcohol 06/16/22 06/16/22 22:12 22:12 WBC RBC Hgb Hct MCV MCH MCHC RDW Std Deviation RDW Coeff of Rebeka Plt Count MPV Neut % (Auto) Absolute Neuts (auto) Absolute Lymphs (auto) Total Counted Neutrophils % (Manual) Band Neutrophils % Lymphocytes % (Manual) Monocytes % (Manual) Metamyelocytes % Myelocytes % Diff Path Review Polychromasia Hypochromasia Target Cells PT INR Sodium Potassium Chloride Carbon Dioxide Anion Gap BUN Creatinine Estim Creat Clear Calc Est GFR (MDRD) Af Amer Est GFR (MDRD) Non-Af BUN/Creatinine Ratio Glucose Lactic Acid Cancelled Calcium Magnesium Total Bilirubin Direct Bilirubin AST ALT Alkaline Phosphatase Total Protein Albumin Globulin Lipase Serum , Qual Urine Color Urine Clarity Urine pH Ur Specific Brilliant Urine Protein Urine Glucose (UA) Urine Ketones Urine Occult Blood Urine Nitrite Urine Bilirubin Urine Urobilinogen Ur Leukocyte Esterase Urine RBC Urine WBC Ur Squamous Epith Cells Urine Bacteria Urine Mucus Ethyl Alcohol < 3.0 Radiography Diagnostic Testing: Clinical Impression(s) from Imaging Studies Abdomen/Pelvis CT 06/16/22 23:13 IMPRESSION: 1. Significantly enlarged liver measuring over 27 cm in length, with diffuse decreased density of the parenchyma and mild adjacent stranding changes. Findings may indicate acute hepatitis. 2. Gallbladder wall thickening. This is likely due to hepatic disease, but correlate for symptoms of cholecystitis. Electronically Signed: Bro Araya MD at 23:59 EST , Discharge Plan Triage Chief Complaint: Abd Pain ED Provider: Oliver Figueroa Dx/Rx/DC Orders Clinical Impression: Hepatic injury, Leukocytosis, Acute hypokalemia Prescriptions: No Action hydroxychloroquine [Plaquenil] 200 mg tablet 200 mg PO BID sulfasalazine 500 mg tablet 500 mg tablet 0.5 g PO QDAY etodolac 400 mg tablet 400 mg PO BID loratadine [Claritin] 10 mg tablet 10 mg PO QDAY etodolac 500 mg tablet 500 mg PO Label Comments: TAKE 1 TABLET BY MOUTH TWICE A DAY WITH FOOD omeprazole 40 mg capsule,delayed release(DR/EC) 40 mg PO cyclobenzaprine 10 MG tablet 10 mg PO BID tramadol 50 MG tablet 50 mg PO TID famotidine 20 MG tablet 20 mg PO DAILY multivitamin,dl-nakb-hgpthard 1 TABLET tablet 1 tab PO DAILY vitamin B complex-folic acid 0.4 MG tablet 0.4 mg PO DAILY Primary Care Provider: Teddy Mcleod Referrals: Teddy Mcleod MD [Primary Care Provider] - Disposition Disposition: Acute Care Hospital [facility]
[2022-06-16 22:12] LABS: Internal QC Validated? YES +Cl - CLEAR BKGD; Pregnancy, Serum, hCG Quali. NEGATIVE Negative
[2022-06-16 22:13] LABS: Anion Gap 13 (5-15); BUN 3 mg/dL (7-18); BUN/Creat Ratio 3.9 RATIO (10-20); Calcium,Total 9.9 mg/dL (8.5-10.1); Chloride 97 mmol/L (98-107); Creatinine, Serum 0.78 mg/dL (0.55-1.02); EST Glomerular Filtration Rate 90 mL/min (>60); Est Glom Filt Rate - Afr Amer 109 mL/min (>60); Estimated Creatinine Clearance 80.38 ml/min; Glucose 90 mg/dL (74-106); Potassium 2.9 mmol/L (3.5-5.1); Sodium Level 133 mmol/L (136-145)
[2022-06-16 22:18] VITALS: RESP 18; O2SAT 100
[2022-06-16] MEDS: 0.9% Normal Saline 1,000 ML 1000 ML IV (22:31)
[2022-06-16 22:32] LABS: International Normalized Ratio 1.2; Prothrombin Time (Protime)PT. 15.3 SECONDS (11.7-14.9)
[2022-06-16] MEDS: Ondansetron 4 MG/2 ML Vial IV (22:32)
[2022-06-16 22:37] LABS: Lymphocyte 27 % (19-41); Metamyelocyte 2 % (0-1); Monocyte 11 % (0-10); Myelocyte 1 % (0-0); Neutrophil-Band 2 % (0-5); Neutrophil-Segmented 57 % (47-70); Total Cells Counted 100 (MANUAL DIFF)
[2022-06-16 22:39] LABS: Absolute Lymphocyte Count 4.73 X10^3/uL (0.83-4.51); Absolute Neutrophil Count 10.3 X10^3/uL (2.0-7.7)
[2022-06-16 22:40] LABS: Hypochromasia 1+; Polychromasia RARE; Target Cells 1+
[2022-06-16 22:45] LABS: Alcohol, Blood (Medical)-Serum < 3.0 mg/dL
[2022-06-16 22:53] LABS: AST(SGOT) 568 U/L (15-37); Alanine Aminotransfer ALT/SGPT 117 U/L (13-56); Albumin, Serum 2.8 g/dL (3.2-5.0); Alkaline Phosphatase 294 U/L (45-117); Bilirubin, Direct 12.38 mg/dL (0.00-0.30); Globulin 3.9 g/dL (2.2-4.2); Lipase 123 U/L (73-393); Protein, Total 6.7 g/dL (6.4-8.2)
--- NOTE | 2022-06-16 23:13 | CT_ITS ---
EXAM: CT ABDOMEN AND PELVIS WITH INTRAVENOUS CONTRAST CLINICAL INDICATION: pain TECHNIQUE: Helically acquired images were obtained of the abdomen and pelvis with intravenous contrast. This CT exam was performed using one or more of the following dose reduction techniques: automated exposure control, adjustment of the mA and/or kV according to patient size, and/or use of iterative reconstruction technique. This report was created using [employer] report generation technology. CONTRAST: IV 100mL [id number] COMPARISON: None. FINDINGS: LOWER THORAX: Unremarkable. Lung bases are clear. No cardiomegaly. No significant pericardial effusion. ABDOMEN: LIVER: Significantly enlarged liver measuring over 27 cm in length, with diffuse decreased density of the parenchyma, and mild adjacent stranding changes. GALLBLADDER AND BILE DUCTS: Gallbladder wall thickening. No calcified gallstones. No intra- or extrahepatic biliary ductal dilation. PANCREAS: Unremarkable. No focal cystic or solid mass. SPLEEN: Unremarkable. Normal size without focal cystic or solid mass. ADRENALS: Unremarkable. No nodules. KIDNEYS AND URETERS: Unremarkable. Normal renal size and position. No hydronephrosis. STOMACH AND BOWEL: Unremarkable. No stomach or bowel distention. No focal inflammatory change. PELVIS: APPENDIX: The appendix is normal. BLADDER: Unremarkable. REPRODUCTIVE: IUD in the uterus. ABDOMEN and PELVIS: INTRAPERITONEAL SPACE: Unremarkable. No ascites or other fluid collection. No free air. BONES/JOINTS: Degenerative changes of the spine. No suspicious lytic or blastic abnormality. SOFT TISSUES: Unremarkable. No discrete abdominal or pelvic wall hernia. VASCULATURE: Unremarkable. Abdominal aorta is non-dilated. LYMPH NODES: Unremarkable. No enlarged lymph nodes. CT/Abdomen/Pelvis W IV Cont ONLY IMPRESSION: 1. Significantly enlarged liver measuring over 27 cm in length, with diffuse decreased density of the parenchyma and mild adjacent stranding changes. Findings may indicate acute hepatitis. 2. Gallbladder wall thickening. This is likely due to hepatic disease, but correlate for symptoms of cholecystitis. Electronically Signed: Bro Araya MD at 23:59 EST ,
--- NOTE | 2022-06-17 01:21 | HP.PCM.HOS_ITS ---
HPI - General General Date of Admission: 06/17/22 Date of Service: 06/17/22 Chief Complaint: Jaundiced HPI Narrative FLORENCIA REMY, is a 36 F with a significant history of rheumatoid arthritis on hydroxychloroquine and etodolac; tobacco abuse and previous history of alcoholism who presents to the emergency department with jaundice. About 3 weeks ago patient had flulike symptoms of coughing; sore throat; aches and pain and coarse voice. Then about a week prior to presentation she had yellowing of her eyes. She went to [facility] and was admitted. She was discharged to follow-up with GI. However, as at the time of presentation she was yet to go for her PCP appointment and get a referral to GI. On the day of presentation patient felt bloating of her abdomen and she had shortness of breath. She has had progressively worsening jaundice. In regard to her alcoholism she cut down about 6 to 8 months ago and now she ra rely drinks. She cut down because she has to take care of her father. Last time she drank was about 10 days prior to presentation. At [facility] she was prescribed cefdinir for UTI which she was still on at the time of presentation to our hospital ([facility]). She reported she did not have any urinary symptoms but might have been prescribed the cefdinir because her urine was abnormal. Patient occasionally takes Tylenol for her rheumatoid arthritis. [facility] Medical History Multinodular goiter Home Medications multivitamin,mt-lejs-[id number] 27 mg-0.4 mg tablet 1 tab PO DAILY 01/29/14 [History Last Taken Unknown] etodolac 400 mg tablet 400 mg PO BID 12/28/17 [History Last Taken Unknown] hydroxychloroquine 200 mg tablet (Plaquenil) 200 mg PO BID 12/28/17 [History Last Taken Unknown] loratadine 10 mg tablet (Claritin) 10 mg PO QDAY 12/28/17 [History Last Taken Unknown] omeprazole 40 mg capsule,delayed release 40 mg PO 11/19/21 [History Last Taken Unknown] cefdinir 300 mg capsule 300 mg PO BID ANTIBIOTICS 06/17/22 [History Last Taken Unknown] ondansetron HCl 4 mg tablet 4 mg PO Q6H PRN PRN Nausea 06/17/22 [History Last Taken Unknown] potassium chloride 20 mEq tablet,extended release 20 meq PO DAILY Check with primary doctor 06/17/22 [History Last Taken Unknown] Allergy/AdvReac Type Severity Reaction Status Date / Time No Known Allergies Allergy Verified 06/16/22 20:33 Surgical History (Updated 06/17/22 @ 02:35 by Christopher Goddard) History of carpal tunnel surgery of right wrist Previous section Social History Smoking Status: Current every day smoker tobacco type: cigarettes ROS ROS Narrative Pertinent positives and pertinent negatives as noted in HPI. All other systems were reviewed and are negative Vital Signs Vital Signs Vital Signs: 06/16/22 20:33 06/16/22 22:18 Temperature 97.3 F L Temperature Source Temporal Pulse Rate 120 H Respiratory Rate 18 18 Blood Pressure 137/92 H Blood Pressure Mean 107 Pulse Ox 96 100 Oxygen Delivery Method Room Air Room Air Weight Weight: 88.451 kg Body Mass Index (BMI) 35.6 Physical Exam Narrative Physical exam: General: Well-nourished, well-developed. Head: Normocephalic, atraumatic, no tenderness Eyes: Scleral icterus. Vision is grossly intact. EOMI ENT, no trauma, moist mucous membranes, no rhinorrhea Neck: Nontender, No thyromegaly. CVS: Regular rate and rhythm. S1-S2 present. No murmur, gallop or rub. Respiratory : clear to auscultation bilaterally, chest wall nontender, no wheezing Abdomen: Soft, nontender, nondistended, normal bowel sounds. Diminished bowel sounds. Hepatomegaly. : Deferred Back: Nontender, no CVA tenderness, no midline spinal tenderness, deformities, step-offs Extremities: Nontender full range of motion, no trauma Skin: Jaundiced, no trauma, abrasions Neuro: Alert, oriented, cranial nerves II through XII grossly intact. Psychiatry: Normal mood. Normal affect. Not depressed. Not anxious. Results Lab / Micro Data Result Diagrams: 06/16/22 21:43 06/16/22 21:43 Labs: Laboratory Results - last 24 hr 06/16/22 21:30: Urine Color Shavon, Urine Clarity Sl. Cloudy, Urine pH 7.0, Ur Specific [place] 1.005, Urine Protein 30 H, Urine Glucose (UA) Normal, Urine Ketones 15 H, Urine Occult Blood 10 H, Urine Nitrite Positive H, Urine Bilirubin 6 H, Urine Urobilinogen 8 H, Ur Leukocyte Esterase 500 H, Urine RBC 0 SEEN, Urine WBC 0-5 SEEN, Ur Squamous Epith Cells 0-5 SEEN, Urine Bacteria RARE, Urine Mucus 0 SEEN 06/16/22 21:43: WBC 17.5 H, RBC 3.46 L, Hgb 12.3, Hct 35.9 L, MCV 103.8 H, MCH 35.5 H, MCHC 34.3, RDW Std Deviation 54.3 H, RDW Coeff of Rebeka 14.6, Plt Count 426, MPV 10.2, Neut % (Auto) Not Reportable, Absolute Neuts (auto) 10.3 H, Absolute Lymphs (auto) 4.73 H, Total Counted 100, Neutrophils % (Manual) 57, Band Neutrophils % 2, Lymphocytes % (Manual) 27, Monocytes % (Manual) 11 H, Metamyelocytes % 2 H, Myelocytes % 1 H, Diff Path Review May foll, Polychromasia RARE, Hypochromasia 1+, Target Cells 1+ 06/16/22 21:43: Sodium 133 L, Potassium 2.9 L, Chloride 97 L, Carbon Dioxide 23.0, Anion Gap 13, BUN 3 L, Creatinine 0.78, Estim Creat Clear Calc 80.38, Est GFR (MDRD) Af Amer 109, Est GFR (MDRD) Non-Af 90, BUN/Creatinine Ratio 3.9 L, Glucose 90, Calcium 9.9 06/16/22 21:43: Serum , Qual NEGATIVE 06/16/22 22:12: PT 15.3 H, INR 1.2 06/16/22 22:12: Magnesium 2.0, Total Bilirubin 14.60 H, Direct Bilirubin 12.38 H , AST 568 H, ALT 117 H, Alkaline Phosphatase 294 H, Total Protein 6.7, Albumin 2.8 L, Globulin 3.9, Lipase 123 06/16/22 22:12: Ethyl Alcohol < 3.0 06/16/22 22:12: Lactic Acid Cancelled Radiology Impression Abdomen/Pelvis CT 06/16/22 23:13 IMPRESSION: 1. Significantly enlarged liver measuring over 27 cm in length, with diffuse decreased density of the parenchyma and mild adjacent stranding changes. Findings may indicate acute hepatitis. 2. Gallbladder wall thickening. This is likely due to hepatic disease, but correlate for symptoms of cholecystitis. Electronically Signed: Bro Araya MD at 23:59 EST , Assessment & Plan Assessment/Plan (1) Hepatic injury: PLAN: Plan Acute hepatic injury Total bilirubin on presentation was 14.6. Bilirubin 12.38. AST 568. ALT 117. Alkaline phosphatase 294. Emergent department doctor discussed the case with GI. GI will follow in consult and possible consider liver biopsy. GI consult placed. Per discussion between ED doctor and GI recent antibiotics may be contributory to liver injury. Hold cefdinir. Mucomyst IV started emergency department and continued Per GI recommendations. CMV and EBV ordered at the ED. Acute hepatitis panel ordered. Ferritin level was elevated at 2635. Serum copper ordered at the ED, follow-up. Trend CBC and CMP. Viral illness As needed Lalo Vázquez sent Cepacol lozenges ordered. Hypokalemia Potassium 2.9 on presentation. Replacement ordered at the ED. Escalate home potassium dose. Check magnesium. Hyponatremia and hypochloremia Sodium of 133. Chloride of 97. Mild. Trend CMP. Leukocytosis White count of 17,500. Likely reactive. Trend CBC. Rheumatoid arthritis stable Hold home etodolac. Hydroxychloroquine continued. DVT prophylaxis SCDs ordered. No chemical prophylaxis because of a possible liver biopsy. Charges/Coding Visit Charges Inpatient E&M: 07578 Init Hosp L3
[2022-06-17] MEDS: Potassium Chloride Oral Tablet 20 MEQ 40 MEQ PO ×2 (01:29→10:01)
[2022-06-17 01:31] VITALS: BP 127/82; PULSE 113; RESP 20; TEMP 36.7; O2SAT 96
[2022-06-17 01:33] LABS: Ammonia < 10.0 umol/L (11-32)
[2022-06-17 02:04] LABS: Ferritin 2635 ng/mL (8-252)
[2022-06-17 02:16] VITALS: BP 141/90; PULSE 112; RESP 18; TEMP 36.9; O2SAT 98
[2022-06-17 02:17] VITALS: BMI 35.3
[2022-06-17] MEDS: BENZOCAINE/MENTHOL 1 LOZENGE MUCOUS MEM ×3 (02:51→10:23)
[2022-06-17 03:01] VITALS: PULSE 112; O2SAT 98
[2022-06-17 07:10] LABS: Hematocrit 33.6 % (37-47); Hemoglobin 11.5 g/dL (12.0-15.0); Mean Corp Hgb Conc 34.2 g/dL (32-36); Mean Corpuscular Hgb 35.6 pg (27.0-32.0); Mean Platelet Vol. 10.2 fl (6.2-12.0); POSITIVE COUNT YES; POSITIVE MORPHOLOGY YES; Platelet Count 374 K/mm3 (150-450); RBC Distribution Width CV 14.8 % (11.6-14.6); RBC Distribution Width SD 55.4 fl (35.1-43.9); Red Blood Count 3.23 M/mm3 (4.2-5.4)
[2022-06-17 07:13] LABS: Differential Indicated MANUAL DIFF
[2022-06-17 07:43] LABS: ALB/GLOB Ratio 0.6 RATIO (0.9-2.4); AST(SGOT) 484 U/L (15-37); Alanine Aminotransfer ALT/SGPT 110 U/L (13-56); Albumin, Serum 2.3 g/dL (3.2-5.0); Alkaline Phosphatase 241 U/L (45-117); Anion Gap 13 (5-15); BUN 3 mg/dL (7-18); BUN/Creat Ratio 4.3 RATIO (10-20); Calcium,Total 9.1 mg/dL (8.5-10.1); Chloride 98 mmol/L (98-107); Creatinine, Serum 0.69 mg/dL (0.55-1.02); EST Glomerular Filtration Rate 103 mL/min (>60); Est Glom Filt Rate - Afr Amer 124 mL/min (>60); Estimated Creatinine Clearance 90.86 ml/min; Globulin 3.7 g/dL (2.2-4.2); Glucose 96 mg/dL (74-106); Potassium 2.6 mmol/L (3.5-5.1); Sodium Level 135 mmol/L (136-145)
[2022-06-17 08:36] LABS: Corrected WBC 11.6 K/mm3 (4.4-11.0); Eosinophil 1 % (0-5); Lymphocyte 21 % (19-41); Monocyte 8 % (0-10); Nucleated Red Bld Cells,Manual 13 % (0-5); Plasma Cell 4 %; Total Cells Counted 100 (MANUAL DIFF)
--- NOTE | 2022-06-17 08:36 | PN.HOSP_ITS ---
Subjective Subjective Still with abdominal pain. Has been feeling ill for 3 weeks. Was jaundiced prior to going to [facility]. Objective Data Objective Data Vital Signs: Vital Signs Temp Pulse Resp BP Pulse Ox O2 Del Method 36.9 C 112 H 18 141/90 H 98 Room Air 06/17/22 02:16 06/17/22 03:01 06/17/22 02:16 06/17/22 02:16 06/17/22 03:01 06/17/22 03:01 Oxygen Delivery Method Room Air Weight: 87.634 kg Body Mass Index (BMI) 35.3 Intake & Output: Intake and Output for Last 24 Hours 06/15/22 06/16/22 06/17/22 23:59 23:59 23:59 Intake Total 2188.45 / 2188.45 Balance 2188.45 / 2188.45 Lab / Micro Data Result Diagrams: 06/17/22 06:30 06/17/22 06:30 Labs: Laboratory Results - last 24 hr 06/16/22 21:30: Urine Color Shavon, Urine Clarity Sl. Cloudy, Urine pH 7.0, Ur Specific [place] 1.005, Urine Protein 30 H, Urine Glucose (UA) Normal, Urine Ketones 15 H, Urine Occult Blood 10 H, Urine Nitrite Positive H, Urine Bilirubin 6 H, Urine Urobilinogen 8 H, Ur Leukocyte Esterase 500 H, Urine RBC 0 SEEN, Urine WBC 0-5 SEEN, Ur Squamous Epith Cells 0-5 SEEN, Urine Bacteria RARE, Urine Mucus 0 SEEN 06/16/22 21:43: WBC 17.5 H, RBC 3.46 L, Hgb 12.3, Hct 35.9 L, MCV 103.8 H, MCH 35.5 H, MCHC 34.3, RDW Std Deviation 54.3 H, RDW Coeff of Rebeka 14.6, Plt Count 426, MPV 10.2, Neut % (Auto) Not Reportable, Absolute Neuts (auto) 10.3 H, Absolute Lymphs (auto) 4.73 H, Total Counted 100, Neutrophils % (Manual) 57, Band Neutrophils % 2, Lymphocytes % (Manual) 27, Monocytes % (Manual) 11 H, Metamyelocytes % 2 H, Myelocytes % 1 H, Diff Path Review May foll, Polychromasia RARE, Hypochromasia 1+, Target Cells 1+ 06/16/22 21:43: Sodium 133 L, Potassium 2.9 L, Chloride 97 L, Carbon Dioxide 23.0, Anion Gap 13, BUN 3 L, Creatinine 0.78, Estim Creat Clear Calc 80.38, Est GFR (MDRD) Af Amer 109, Est GFR (MDRD) Non-Af 90, BUN/Creatinine Ratio 3.9 L, Glucose 90, Calcium 9.9 06/16/22 21:43: Serum , Qual NEGATIVE 06/16/22 22:12: PT 15.3 H, INR 1.2 06/16/22 22:12: Magnesium 2.0, Total Bilirubin 14.60 H, Direct Bilirubin 12.38 H , AST 568 H, ALT 117 H, Alkaline Phosphatase 294 H, Total Protein 6.7, Albumin 2.8 L, Globulin 3.9, Lipase 123 06/16/22 22:12: Ethyl Alcohol < 3.0 06/16/22 22:12: Lactic Acid Cancelled 06/17/22 00:55: Ferritin 2635 H 06/17/22 00:55: Ammonia < 10.0 L 06/17/22 06:30: WBC 13.1 H, RBC 3.23 L, Hgb 11.5 L, Hct 33.6 L, MCV 104.0 H, MCH 35.6 H, MCHC 34.2, RDW Std Deviation 55.4 H, RDW Coeff of Rebeka 14.8 H, Plt Count 374, MPV 10.2, Neut % (Auto) Not Reportable 06/17/22 06:30: Sodium 135 L, Potassium 2.6 L*, Chloride 98, Carbon Dioxide 24.0, Anion Gap 13, BUN 3 L, Creatinine 0.69, Estim Creat Clear Calc 90.86, Est GFR (MDRD) Af Amer 124, Est GFR (MDRD) Non-Af 103, BUN/Creatinine Ratio 4.3 L, Glucose 96, Calcium 9.1, Magnesium 2.0, Total Bilirubin 13.70 H, AST 484 H, ALT 110 H, Alkaline Phosphatase 241 H, Total Protein 6.0 L, Albumin 2.3 L, Globulin 3.7, Albumin/Globulin Ratio 0.6 L Radiography Diagnostic Testing: Radiology Impression Abdomen/Pelvis CT 06/16/22 23:13 IMPRESSION: 1. Significantly enlarged liver measuring over 27 cm in length, with diffuse decreased density of the parenchyma and mild adjacent stranding changes. Findings may indicate acute hepatitis. 2. Gallbladder wall thickening. This is likely due to hepatic disease, but correlate for symptoms of cholecystitis. Electronically Signed: Bro Araya MD at 23:59 EST Reading Location ID and State: [facility] / [place] Tel , Service support , Physical Exam Const alert and no apparent distress Eyes Eyes Narrative: icterus Resp normal respiratory effort, no retractions, no use of accessory muscles and clear to auscultation bilaterally Cardio regular rate, regular rhythm, S1 normal heart sound and S2 normal heart sound GI GI Narrative: hepatomegaly and splenomegaly. TTP Skin Skin Narrative: jaundice Assessment & Plan Assessment/Plan (1) Hepatic injury: PLAN: Acute hepatic injury Total bilirubin on presentation was 14.6. Bilirubin 12.38. AST 568. ALT 117. Alkaline phosphatase 294. GI consult placed. Per discussion between ED doctor and GI recent antibiotics may be contributory to liver injury. Hold cefdinir. Mucomyst IV started emergency department and continued Per GI recommendations. CMV and EBV ordered at the ED. Acute hepatitis panel ordered. Ferritin level was elevated at 2635. Serum copper ordered at the ED, follow-up. Trend CBC and CMP. Viral studies (CMV, EBV, Hep A, B, C) pending (2) Acute hypokalemia: PLAN: Magnesium normal Continue replacement Add oral. Add to IVF PLAN: Plan Hyponatremia and hypochloremia Sodium of 133. Chloride of 97. Mild. Trend CMP. Leukocytosis White count of 17,500. Likely reactive. Trend CBC. Rheumatoid arthritis stable Hold home etodolac. Hydroxychloroquine continued. DVT prophylaxis SCDs ordered. No chemical prophylaxis because of a possible liver biopsy. Charges/Coding Visit Charges Inpatient E&M: 09705 Subs Hosp L2
[2022-06-17 08:37] LABS: Neutrophil-Segmented 66 % (47-70)
[2022-06-17 08:38] LABS: Polychromasia RARE; Target Cells 2+
[2022-06-17 08:39] LABS: Macrocytosis 2+; Platelet Estimate ADEQUATE (ADEQ)
[2022-06-17 08:52] LABS: Absolute Lymphocyte Count 2.43 X10^3/uL (0.83-4.51); Absolute Neutrophil Count 7.7 X10^3/uL (2.0-7.7); Lymphocyte # 2.43 X10^3/ul (0.83-4.51); Neutrophil # 7.65 X10^3/uL (2.7-7.7)
[2022-06-17 09:00] LABS: International Normalized Ratio 1.3; Prothrombin Time (Protime)PT. 16.2 SECONDS (11.7-14.9)
[2022-06-17 09:45] VITALS: BP 126/76; PULSE 119; RESP 16; TEMP 36.8; O2SAT 93
[2022-06-17] MEDS: Pantoprazole Sodium 40 MG Tablet PO (10:00)
[2022-06-17] MEDS: Hydroxychloroquine 200 MG Tablet PO ×2 (10:00→17:08)
[2022-06-17] MEDS: Loratadine 10 MG Tablet PO (10:00)
[2022-06-17] MEDS: oxyCODONE 5 MG Tablet PO ×4 (10:01→22:16)
[2022-06-17] MEDS: Multivitamins,Ther W-Minerals Tablet 1 TABLET PO (10:01)
[2022-06-17] MEDS: KCL 20MEQ in 0.9% NS 20 MEQ/1,000 ML IV.SOLN. 125 MEQ IV ×2 (10:17→18:14)
[2022-06-17] MEDS: 0.9% Saline Lock 10 ML Syringe IV (10:20)
--- NOTE | 2022-06-17 11:05 | CASEMGMT ---
PAULA TRAORE Assessment: Face to Face with pt for initial transition planning/care coordination assessment. PAULA TRAORE introduced self and role at [facility], pt voices understanding and consents to assessment. Pt is A/O x4 and answers all questions appropriately at this time. Pt sitting up in chair in no distress. Care providers, pharmacy, and demographics verified/updated. Admitting Dx:acute hepatic injury PCP:Shani Specialists:Pt states she is going to start seeing the [facility] arthritis clinic in [place]. Pt also is going to go to [facility] as her previous ENT left the area. owen Dangelo. Provided pt with a local healthcare directory of physicians. Preferred Pharmacy: [facility] [place] Insurance: Raise Prescription Benefit: yes LNOK: Jb Jassoer, sister; Eli Bose, friend Living Arrangements: Pt lives with her father and son in a single story house with 2 steps to enter. Pt reports she is I in ADL's and denies concerns at home. Transportation: Pt drives self and denies concerns with transportation. DME/HHC/SNF: Pt denies having any DME in the home, previous HHC or SNF stays. Pt states no concerns with going home at time of dc. Pt states no further concerns/needs. CM to follow. Advised pt to ask CM if any further question/concerns/needs arise, voices understanding. Pt Goal: Home Plan: Home
[2022-06-17] MEDS: hydrOXYzine 10 MG Tablet PO ×2 (11:36→21:28)
[2022-06-17 15:20] VITALS: BP 127/74; PULSE 118; RESP 16; TEMP 36.6; O2SAT 92
--- NOTE | 2022-06-17 20:29 | CON.PCM.GI_ITS ---
HPI Consult Data Date of Consult: 06/17/22 HPI Narrative Reason for Consultation: Jaundice HPI Narrative: FLORENCIA REMY, is a 36 F who presents to the emergency room after being seen at another hospital for new onset jaundice. She has a past medical history of severe alcoholism. She does not have a past medical history of cirrhosis. She says that she was drinking 60 to 80 g of alcohol per day up until about a year ago where she can significantly cut down her drinking. She still does drink on a daily basis up until 2 weeks ago. Patient states she started feeling ill about 2 weeks ago.? She had some myalgias and hot and cold sensations but no fever.? She had COVID and influenza is tested a couple times that are negative.? A week after the onset of the symptoms, she started to become jaundiced.? She went to [facility].? She was admitted last through Monday.? She states they diagnosed her with dehydration, low magnesium liquids medicines for nausea.? They did a CAT scan of her abdomen.? They said her liver was inflamed.? She does not know if they did a little hepatitis screens.? She has follow-up with director of admissions on the of this month. But she states for the last couple years she only has about 1 glass of vodka in the evening.? When she holds up her fingers it looks like there is glass would likely be 4 or 5 shots in a day.? She does not get withdrawal if she does not drink.? She will take Tylenol but only once or twice during the day.? Never more.? She states she was given Tylenol in the hospital also.? This is because she has rheumatoid arthritis and commonly has joint pain.? The only abdominal surgery was .? She denies any history of hepatitis in the past.? She denies any history of cirrhosis.? She denies any bleeding problems.? Nothing makes her symptoms better and worse.? When she went in the hospital she had nausea and vomiting but Zofran has helped this and she is able to eat and drink now.? She is moving her bowels.? They are not light-colored or changed.? There is no blood.? She was also treated for urinary tract infection.? She states she no longer has dysuria or burning.? She is taking her cefdinir as prescribed. In the ED she was noted to have of 16, AST of 568, ALT of 117 and alkaline phosphatase of 294. Her INR 1.2. She had CT scan of the abdomen pelvis that did show severe hepatomegaly with a liver span of 27 cm. There was no sple nomegaly noted. Also noted was in the gallbladder. She feels bloated but she is not having any abdominal pain. Last night started her on treatment for Non- Acetaminophen acute liver injury. I thought she did have alcoholic hepatitis with Madre score of 34. However she did not show any signs of encephalopathy and therefore I do not think steroids should be given. Also noted was a white blood cell count of 17.4. [facility] Medical History (Updated 06/17/22 @ 20:[address] Garcia Friend, DO) Alcohol abuse Anxiety and depression Migraine Multinodular goiter Rheumatoid arthritis Smoker SVT (supraventricular tachycardia) Home Medications multivitamin,ox-fhjt-wfagcpln 27 mg-0.4 mg tablet 1 tab PO DAILY supplement 01/29/14 [History Last Taken 06/16/22] etodolac 400 mg tablet 500 mg PO BID PAIN 12/28/17 [History Last Taken 06/16/22] hydroxychloroquine 200 mg tablet (Plaquenil) 200 mg PO BID RA 12/28/17 [History Last Taken 06/16/22] loratadine 10 mg tablet (Claritin) 10 mg PO BID allergies 12/28/17 [History Last Taken 06/16/22] omeprazole 40 mg capsule,delayed release 40 mg PO DAILY GERD 11/19/21 [History Last Taken 06/16/22] cefdinir 300 mg capsule 300 mg PO BID ANTIBIOTICS 06/17/22 [History Last Taken 06/16/22] ondansetron HCl 4 mg tablet 4 mg PO Q6H PRN PRN Nausea 06/17/22 [History Last Taken Unknown] potassium chloride 20 mEq tablet,extended release 20 meq PO DAILY supplement 06/17/22 [History Last Taken 06/16/22] Allergy/AdvReac Type Severity Reaction Status Date / Time No Known Allergies Allergy Verified 06/16/22 20:33 Surgical History (Updated 06/17/22 @ 02:35 by Christopher Goddard) History of carpal tunnel surgery of right wrist Previous section Social History Smoking Status: Current every day smoker tobacco type: cigarettes ROS ROS Narrative Pertinent positives and pertinent negatives as noted in HPI. All other systems were reviewed and are negative Physical Exam Const alert and no apparent distress Eyes Eyes Narrative: icterus Resp normal respiratory effort, no retractions, no use of accessory muscles and clear to auscultation bilaterally Cardio regular rate, regular rhythm, S1 normal heart sound and S2 normal heart sound GI GI Narrative: hepatomegaly and splenomegaly. TTP Skin Skin Narrative: jaundice Lab / Micro Data Result Diagrams: 06/17/22 06:30 06/17/22 06:30 Labs: Laboratory Results - last 24 hr 06/16/22 21:30: Urine Color Shavon, Urine Clarity Sl. Cloudy, Urine pH 7.0, Ur Specific [place] 1.005, Urine Protein 30 H, Urine Glucose (UA) Normal, Urine Ketones 15 H, Urine Occult Blood 10 H, Urine Nitrite Positive H, Urine Bilirubin 6 H, Urine Urobilinogen 8 H, Ur Leukocyte Esterase 500 H, Urine RBC 0 SEEN, Ur ine WBC 0-5 SEEN, Ur Squamous Epith Cells 0-5 SEEN, Urine Bacteria RARE, Urine Mucus 0 SEEN 06/16/22 21:43: WBC 17.5 H, RBC 3.46 L, Hgb 12.3, Hct 35.9 L, MCV 103.8 H, MCH 35.5 H, MCHC 34.3, RDW Std Deviation 54.3 H, RDW Coeff of Rebeka 14.6, Plt Count 426, MPV 10.2, Neut % (Auto) Not Reportable, Absolute Neuts (auto) 10.3 H, Absolute Lymphs (auto) 4.73 H, Total Counted 100, Neutrophils % (Manual) 57, Band Neutrophils % 2, Lymphocytes % (Manual) 27, Monocytes % (Manual) 11 H, Metamyelocytes % 2 H, Myelocytes % 1 H, Diff Path Review May foll, Polychromasia RARE, Hypochromasia 1+, Target Cells 1+ 06/16/22 21:43: Sodium 133 L, Potassium 2.9 L, Chloride 97 L, Carbon Dioxide 23.0, Anion Gap 13, BUN 3 L, Creatinine 0.78, Estim Creat Clear Calc 80.38, Est GFR (MDRD) Af Amer 109, Est GFR (MDRD) Non-Af 90, BUN/Creatinine Ratio 3.9 L, Glucose 90, Calcium 9.9 06/16/22 21:43: Serum , Qual NEGATIVE 06/16/22 22:12: PT 15.3 H, INR 1.2 06/16/22 22:12: Magnesium 2.0, Total Bilirubin 14.60 H, Direct Bilirubin 12.38 H , AST 568 H, ALT 117 H, Alkaline Phosphatase 294 H, Total Protein 6.7, Albumin 2.8 L, Globulin 3.9, Lipase 123 06/16/22 22:12: Ethyl Alcohol < 3.0 06/16/22 22:12: Lactic Acid Cancelled 06/17/22 00:55: Ferritin 2635 H 06/17/22 00:55: Ammonia < 10.0 L 06/17/22 06:30: WBC PANTOGRAPH I ENGRAVER, Corrected WBC 11.6 H, RBC 3.23 L, Hgb 11.5 L, Hct 33.6 L , MCV 104.0 H, MCH 35.6 H, MCHC 34.2, RDW Std Deviation 55.4 H, RDW Coeff of Rebeka 14.8 H, Plt Count 374, MPV 10.2, Neut % (Auto) Not Reportable, Absolute Neuts (auto) 7.7, Absolute Lymphs (auto) 2.43, Total Counted 100, Neutrophils % (Manual) 66, Lymphocytes % (Manual) 21, Monocytes % (Manual) 8, Eosinophils % (Manual) 1, Plasma Cell % (Manual) 4, Nucleated RBCs/100 WBC 13 H, Diff Path Review October, Platelet Estimate ADEQUATE, Polychromasia RARE, Macrocytosis 2+, Target Cells 2+ 06/17/22 06:30: Sodium 135 L, Potassium 2.6 L*, Chloride 98, Carbon Dioxide 24.0, Anion Gap 13, BUN 3 L, Creatinine 0.69, Estim Creat Clear Calc 90.86, Est GFR (MDRD) Af Amer 124, Est GFR (MDRD) Non-Af 103, BUN/Creatinine Ratio 4.3 L, Glucose 96, Calcium 9.1, Magnesium 2.0, Total Bilirubin 13.70 H, AST 484 H, ALT 110 H, Alkaline Phosphatase 241 H, Total Protein 6.0 L, Albumin 2.3 L, Globulin 3.7, Albumin/Globulin Ratio 0.6 L 06/17/22 06:30: PT 16.2 H, INR 1.3 Radiology Impression Abdomen/Pelvis CT 06/16/22 23:13 IMPRESSION: 1. Significantly enlarged liver measuring over 27 cm in length, with diffuse decreased density of the parenchyma and mild adjacent stranding changes. Findings may indicate acute hepatitis. 2. Gallbladder wall thickening. This is likely due to hepatic disease, but correlate for symptoms of cholecystitis. Electronically Signed: Bro Araya MD at 23:59 EST , Assessment & Plan Assessment/Plan (1) Alcoholic hepatitis: PLAN: I suspect she does have acute alcoholic hepatitis in the setting of an acute viral hepatitis. I think it is a non hepatic viral hepatitis her Madrey score is high enough for steroids but I do not think is indicated at this time due to the fact she is not having any encephalopathy. I also think she does not need Pentoxil filing at this time due to the fact that her LFTs are improving with Mucomyst (2) Hepatic injury: PLAN: . Also the differential diagnosis for acute back injury would be autoimmune hepatitis, Abhilash's disease, ischemic hepatitis and concomitant drug- induced hepatitis secondary to antibiotics in the setting of alcoholic hepatitis and a viral hepatitis. All labs are pending. Recommend to continue current management Charges/Coding Visit Charges Inpatient E&M: 26734 Init Hosp L3
[2022-06-17 21:07] VITALS: BP 125/78; PULSE 110; RESP 20; TEMP 36.9; O2SAT 94
[2022-06-17 21:45] LABS: International Normalized Ratio 1.3; Partial Thromboplast Time 28.9 Seconds (24.1-36.2); Prothrombin Time (Protime)PT. 16.3 SECONDS (11.7-14.9)
[2022-06-17 22:15] LABS: HIV - WCH Non-Reactive (Nonreactive)
[2022-06-17 22:16] LABS: Ferritin 2550 ng/mL (8-252); GGTP 1491 U/L (5-55)
[2022-06-17] MEDS: MELATONIN 3 MG TABLET PO (22:16)
[2022-06-18] MEDS: BENZOCAINE/MENTHOL 1 LOZENGE MUCOUS MEM ×3 (01:47→20:33)
[2022-06-18] MEDS: oxyCODONE 5 MG Tablet PO ×4 (02:19→17:21)
[2022-06-18] MEDS: KCL 20MEQ in 0.9% NS 20 MEQ/1,000 ML IV.SOLN. 125 MEQ IV ×3 (02:20→19:52)
[2022-06-18] MEDS: Ondansetron 4 MG/2 ML Vial IV ×3 (02:20→18:52)
[2022-06-18 02:23] VITALS: BP 110/74; PULSE 109; RESP 20; TEMP 36.8; O2SAT 92
[2022-06-18 06:08] LABS: HEPATITIS B SURFACE AG Negative (Negative); Hep C Antibodies <0.1 s/co ratio (0.0-0.9); Hepatitis A IgM Antibody Negative (Negative); Hepatitis B Core AB IgM Negative (Negative)
[2022-06-18] MEDS: hydrOXYzine 10 MG Tablet PO (06:38)
[2022-06-18 07:33] VITALS: PULSE 118
[2022-06-18 07:45] VITALS: BP 105/64; PULSE 108; RESP 18; TEMP 37.2; O2SAT 94
[2022-06-18 08:05] LABS: Hematocrit 30.8 % (37-47); Hemoglobin 10.8 g/dL (12.0-15.0); Mean Corp Hgb Conc 35.1 g/dL (32-36); Mean Corpuscular Hgb 36.5 pg (27.0-32.0); Mean Corpuscular Volume 104.1 fL (81-99); Mean Platelet Vol. 10.4 fl (6.2-12.0); POSITIVE COUNT YES; POSITIVE MORPHOLOGY YES; Platelet Count 325 K/mm3 (150-450); RBC Distribution Width CV 15.5 % (11.6-14.6); RBC Distribution Width SD 57.8 fl (35.1-43.9); Red Blood Count 2.96 M/mm3 (4.2-5.4)
[2022-06-18 08:08] LABS: Differential Indicated MANUAL DIFF
--- NOTE | 2022-06-18 08:24 | PN.HOSP_ITS ---
Subjective Subjective Still with abdominal pain. Constipated. Objective Data Objective Data Vital Signs: Vital Signs Temp Pulse Resp BP Pulse Ox O2 Del Method 37.2 C 108 H 18 105/64 94 Room Air 06/18/22 07:45 06/18/22 07:45 06/18/22 07:45 06/18/22 07:45 06/18/22 07:45 06/18/22 07:45 Oxygen Delivery Method Room Air Weight: 87.634 kg Body Mass Index (BMI) 35.3 Intake & Output: Intake and Output for Last 24 Hours 06/16/22 06/17/22 06/18/22 23:59 23:59 23:59 Intake Total 5026.45 / 5026.45 2000 / 2000 Output Total 250 / 250 1500 / 1500 Balance 4776.45 / 4776.45 500 / 500 Lab / Micro Data Result Diagrams: 06/18/22 07:25 06/18/22 07:25 Labs: Laboratory Results - last 24 hr 06/17/22 06:30: WBC WEB SITE PROJECT MANAGER, Corrected WBC 11.6 H, Absolute Neuts (auto) 7.7, Absolute Lymphs (auto) 2.43, Total Counted 100, Neutrophils % (Manual) 66, Lymphocytes % (Manual) 21, Monocytes % (Manual) 8, Eosinophils % (Manual) 1, Plasma Cell % (Manual) 4, Nucleated RBCs/100 WBC 13 H, Diff Path Review October, Platelet Estimate ADEQUATE, Polychromasia RARE, Macrocytosis 2+, Target Cells 2+ 06/17/22 06:30: PT 16.2 H, INR 1.3 06/17/22 21:23: PT 16.3 H, INR 1.3, APTT 28.9 06/17/22 21:23: Ferritin 2550 H, GGT 1491 H 06/17/22 21:23: HIV 1&2 Antibody Non-Reactive 06/18/22 07:25: WBC 13.0 H, RBC 2.96 L, Hgb 10.8 L, Hct 30.8 L, MCV 104.1 H, MCH 36.5 H, MCHC 35.1, RDW Std Deviation 57.8 H, RDW Coeff of Rebeka 15.5 H, Plt Count 325, MPV 10.4, Neut % (Auto) Not Reportable Physical Exam Const alert and no apparent distress Eyes Eyes Narrative: Icterus Resp normal respiratory effort, no retractions, no use of accessory muscles and clear to auscultation bilaterally Cardio regular rate, regular rhythm, S1 normal heart sound and S2 normal heart sound GI normal to inspection, nondistended, normoactive bowel sounds GI Narrative: Hepatosplenomegaly tender palpation. Assessment & Plan Assessment/Plan (1) Hepatic injury: PLAN: Acute hepatic injury improving Total bilirubin on presentation was 14.6. Bilirubin 12.38. AST 568. ALT 117. Alkaline phosphatase 294. GI consult placed. Per discussion between ED doctor and GI recent antibiotics may be contributory to liver injury. Hold cefdinir. Mucomyst IV started emergency department and continued Per GI recommendations. CMV and EBV ordered at the ED. Acute hepatitis panel ordered. Ferritin level was elevated at 2635. Serum copper ordered at the ED, follow-up. Trend CBC and CMP. Viral studies (CMV, EBV, Hep A, B, C) pending. HIV negative (2) Acute hypokalemia: PLAN: Magnesium normal Continue replacement Add oral. Add to IVF PLAN: Plan Hyponatremia and hypochloremia Sodium of 133. Chloride of 97. Mild. Trend CMP. Leukocytosis White count of 17,500. Likely reactive. Trend CBC. Rheumatoid arthritis stable Hold home etodolac. Hydroxychloroquine continued. DVT prophylaxis SCDs ordered. No chemical prophylaxis because of a possible liver biopsy. Charges/Coding Visit Charges Inpatient E&M: 33328 Subs Hosp L2
[2022-06-18 08:37] LABS: ALB/GLOB Ratio 0.7 RATIO (0.9-2.4); AST(SGOT) 407 U/L (15-37); Alanine Aminotransfer ALT/SGPT 97 U/L (13-56); Albumin, Serum 2.3 g/dL (3.2-5.0); Alkaline Phosphatase 246 U/L (45-117); Anion Gap 11 (5-15); BUN < 1 mg/dL (7-18); Calcium,Total 8.2 mg/dL (8.5-10.1); Chloride 102 mmol/L (98-107); Creatinine, Serum 0.58 mg/dL (0.55-1.02); EST Glomerular Filtration Rate 127 mL/min (>60); Est Glom Filt Rate - Afr Amer 154 mL/min (>60); Estimated Creatinine Clearance 108.09 ml/min; Globulin 3.3 g/dL (2.2-4.2); Glucose 80 mg/dL (74-106); Protein, Total 5.6 g/dL (6.4-8.2); Sodium Level 134 mmol/L (136-145)
[2022-06-18 08:43] LABS: Corrected WBC 12.1 K/mm3 (4.4-11.0); Lymphocyte 25 % (19-41); Monocyte 7 % (0-10); Neutrophil-Segmented 68 % (47-70); Nucleated Red Bld Cells,Manual 14 % (0-5); Total Cells Counted 100 (MANUAL DIFF)
[2022-06-18 08:44] LABS: Anisocytosis RARE; Platelet Estimate ADEQUATE (ADEQ); Polychromasia RARE
[2022-06-18 08:46] LABS: Absolute Neutrophil Count 8.2 X10^3/uL (2.0-7.7)
[2022-06-18 09:05] LABS: International Normalized Ratio 1.4; Prothrombin Time (Protime)PT. 16.5 SECONDS (11.7-14.9)
[2022-06-18] MEDS: Potassium Chloride Oral Tablet 20 MEQ 40 MEQ PO (09:34)
[2022-06-18] MEDS: Pantoprazole Sodium 40 MG Tablet PO (09:35)
[2022-06-18] MEDS: Multivitamins,Ther W-Minerals Tablet 1 TABLET PO (09:35)
[2022-06-18] MEDS: Hydroxychloroquine 200 MG Tablet PO ×2 (09:35→17:21)
[2022-06-18] MEDS: Loratadine 10 MG Tablet PO (09:35)
[2022-06-18] MEDS: 0.9% Saline Lock 10 ML Syringe IV ×2 (10:50→18:53)
[2022-06-18 13:12] VITALS: PULSE 90
[2022-06-18 14:29] VITALS: BP 116/66; PULSE 105; RESP 20; TEMP 37; O2SAT 93
[2022-06-18] MEDS: Bisacodyl 5 MG Tablet 10 MG PO (14:40)
[2022-06-18 20:20] VITALS: BP 121/72; PULSE 104; RESP 20; TEMP 36.8; O2SAT 92
[2022-06-19] VITALS (7 sets, daily range): BP systolic 98–132; BP diastolic 78–88; PULSE 99–106; RESP 18; TEMP 36.4–36.9; O2SAT 92
[2022-06-19] MEDS: KCL 20MEQ in 0.9% NS 20 MEQ/1,000 ML IV.SOLN. 125 MEQ IV ×3 (03:33→20:08)
[2022-06-19] MEDS: oxyCODONE 5 MG Tablet PO ×4 (03:33→22:39)
[2022-06-19] MEDS: BENZOCAINE/MENTHOL 1 LOZENGE MUCOUS MEM ×3 (03:34→20:14)
[2022-06-19] MEDS: Ondansetron 4 MG/2 ML Vial IV ×2 (06:53→16:30)
[2022-06-19 07:12] LABS: Hematocrit 30.4 % (37-47); Hemoglobin 10.4 g/dL (12.0-15.0); Mean Corp Hgb Conc 34.2 g/dL (32-36); Mean Corpuscular Hgb 35.6 pg (27.0-32.0); Mean Corpuscular Volume 104.1 fL (81-99); Mean Platelet Vol. 10.7 fl (6.2-12.0); POSITIVE COUNT YES; POSITIVE MORPHOLOGY YES; Platelet Count 321 K/mm3 (150-450); RBC Distribution Width CV 15.9 % (11.6-14.6); Red Blood Count 2.92 M/mm3 (4.2-5.4)
[2022-06-19 07:21] LABS: Differential Indicated MANUAL DIFF
[2022-06-19 07:27] LABS: International Normalized Ratio 1.3; Prothrombin Time (Protime)PT. 15.5 SECONDS (11.7-14.9)
[2022-06-19] MEDS: Multivitamins,Ther W-Minerals Tablet 1 TABLET PO (07:42)
[2022-06-19] MEDS: Hydroxychloroquine 200 MG Tablet PO ×2 (07:42→16:30)
[2022-06-19] MEDS: Loratadine 10 MG Tablet PO (07:42)
[2022-06-19] MEDS: Potassium Chloride Oral Tablet 20 MEQ 40 MEQ PO ×2 (07:42→16:31)
[2022-06-19] MEDS: Pantoprazole Sodium 40 MG Tablet PO (07:42)
[2022-06-19 07:45] LABS: ALB/GLOB Ratio 0.6 RATIO (0.9-2.4); AST(SGOT) 502 U/L (15-37); Alanine Aminotransfer ALT/SGPT 114 U/L (13-56); Albumin, Serum 2.1 g/dL (3.2-5.0); Alkaline Phosphatase 265 U/L (45-117); Anion Gap 12 (5-15); BUN 2 mg/dL (7-18); BUN/Creat Ratio 3.3 RATIO (10-20); Calcium,Total 8.1 mg/dL (8.5-10.1); Chloride 105 mmol/L (98-107); Creatinine, Serum 0.62 mg/dL (0.55-1.02); EST Glomerular Filtration Rate 118 mL/min (>60); Est Glom Filt Rate - Afr Amer 142 mL/min (>60); Estimated Creatinine Clearance 101.12 ml/min; Globulin 3.4 g/dL (2.2-4.2); Glucose 75 mg/dL (74-106); Potassium 3.2 mmol/L (3.5-5.1); Protein, Total 5.5 g/dL (6.4-8.2); Sodium Level 137 mmol/L (136-145)
[2022-06-19 07:50] LABS: Corrected WBC 14.6 K/mm3 (4.4-11.0); Lymphocyte 16 % (19-41); Metamyelocyte 1 % (0-1); Monocyte 5 % (0-10); Myelocyte 1 % (0-0); Neutrophil-Band 1 % (0-5); Neutrophil-Segmented 76 % (47-70); Nucleated Red Bld Cells,Manual 7 % (0-5); Total Cells Counted 100 (MANUAL DIFF)
[2022-06-19 07:51] LABS: Anisocytosis 1+; Platelet Estimate ADEQUATE (ADEQ); Polychromasia RARE
[2022-06-19 08:20] LABS: Absolute Neutrophil Count 11.2 X10^3/uL (2.0-7.7); Promyelocyte 1 % (0-0)
--- NOTE | 2022-06-19 08:38 | PCM.PN.HOSP ---
Subjective Subjective Still abdominal pain but feeling better. Objective Data Objective Data Vital Signs: Vital Signs Temp Pulse Resp BP Pulse Ox O2 Del Method 36.4 C L 106 H 18 132/87 H 92 Room Air 06/19/22 03:36 06/19/22 03:39 06/19/22 03:36 06/19/22 03:36 06/19/22 03:36 06/19/22 03:36 Oxygen Delivery Method Room Air Weight: 87.634 kg Body Mass Index (BMI) 35.3 Intake & Output: Intake and Output for Last 24 Hours 06/17/22 06/18/22 06/19/22 23:59 23:59 23:59 Intake Total 5026.45 / 5026.45 3829.17 / 4329.17 1960.42 / 1960.42 Output Total 250 / 250 1950 / 1950 800 / 800 Balance 4776.45 / 4776.45 1879.17 / 2379.17 1160.42 / 1160.42 Lab / Micro Data Result Diagrams: 06/19/22 06:35 06/19/22 09:30 Labs: Laboratory Results - last 24 hr 06/16/22 01:00: Hepatitis A IgM Ab Negative, Hep Bs Antigen Negative, Hep B Core IgM Ab Negative, Hepatitis C Ab (EIA) <0.1, Hep C Ab Comment Comment 06/18/22 07:25: PT 16.5 H, INR 1.4 06/18/22 07:25: WBC STERILE PROCESSING TECHNOLOGIST, Corrected WBC 12.1 H, Absolute Neuts (auto) 8.2 H, Absolute Lymphs (auto) 3.00, Total Counted 100, Neutrophils % (Manual) 68, Lymphocytes % (Manual) 25, Monocytes % (Manual) 7, Nucleated RBCs/100 WBC 14 H, Diff Path Review May , Platelet Estimate ADEQUATE, Polychromasia RARE, Anisocytosis RARE 06/18/22 : Miscellaneous Test Cancelled 06/19/22 06:35: PT 15.5 H, INR 1.3 06/19/22 06:35: WBC STERILE PROCESSING TECHNOLOGIST, Corrected WBC 14.6 H, RBC 2.92 L, Hgb 10.4 L, Hct 30.4 L, MCV 104.1 H, MCH 35.6 H, MCHC 34.2, RDW Std Deviation 59.0 H, RDW Coeff of Rebeka 15.9 H, Plt Count 321, MPV 10.7, Neut % (Auto) Not Reportable, Absolute Neuts (auto) 11.2 H, Absolute Lymphs (auto) 2.30, Total Counted 100, Neutrophils % (Manual) 76 H, Band Neutrophils % 1, Lymphocytes % (Manual) 16 L, Monocytes % (Manual) 5, Metamyelocytes % 1, Myelocytes % 1 H, Promyelocytes % 1 H, Nucleated RBCs/100 WBC 7 H, Diff Path Review October, Platelet Estimate ADEQUATE, Polychromasia RARE, Anisocytosis 1+ 06/19/22 06:35: Sodium 137, Potassium 3.2 L, Chloride 105, Carbon Dioxide 20.0 L, Anion Gap 12, BUN 2 L, Creatinine 0.62, Estim Creat Clear Calc 101.12, Est GFR (MDRD) Af Amer 142, Est GFR (MDRD) Non-Af 118, BUN/Creatinine Ratio 3.3 L, Glucose 75, Calcium 8.1 L, Total Bilirubin 13.10 H, AST 502 H, ALT 114 H, Alkaline Phosphatase 265 H, Total Protein 5.5 L, Albumin 2.1 L, Globulin 3.4, Albumin/Globulin Ratio 0.6 L Micro: Microbiology 06/16/22 21:30 Urine, Clean Catch Urine Culture - Final Mixed Gram Pos & Gram Neg Org Physical Exam Const alert and no apparent distress Resp normal respiratory effort, no retractions, no use of accessory muscles and clear to auscultation bilaterally Cardio regular rate, regular rhythm, S1 normal heart sound and S2 normal heart sound GI GI Narrative: Hepatosplenomegaly. With tenderness palpation. Assessment & Plan Assessment/Plan (1) Hepatic injury: PLAN: Acute hepatic injury overall improving Virgil by GI to have acute alcoholic hepatitis in the setting of an acute viral hepatitis. Testing: Ferritin level was elevated at 2635. Serum copper ordered at the ED, follow-up. Viral studies (CMV, EBV, Hep A, B, C) pending. HIV negative Patient does have history of elevated AST and ALT Treatment Started on methylprednisolone 40 IV every 6 and pentoxifylline 40 mg 3 times daily. Observe for recovery. (2) Acute hypokalemia: PLAN: Magnesium normal Continue replacement Add oral. Add to IVF (3) Alcohol abuse: PLAN: No s/s of withdrawal continue MVI PLAN: Plan Hyponatremia and hypochloremia Sodium of 133. Chloride of 97. Mild. Trend CMP. Leukocytosis White count of 17,500. Likely reactive. Trend CBC. Rheumatoid arthritis stable Hold home etodolac. Hydroxychloroquine continued. DVT prophylaxis SCDs ordered. Charges/Coding Visit Charges Inpatient E&M: 77633 Subs Hosp L2
[2022-06-19 10:08] LABS: ALB/GLOB Ratio 0.7 RATIO (0.9-2.4); AST(SGOT) 501 U/L (15-37); Alanine Aminotransfer ALT/SGPT 112 U/L (13-56); Albumin, Serum 2.2 g/dL (3.2-5.0); Alkaline Phosphatase 265 U/L (45-117); Anion Gap 12 (5-15); BUN 1 mg/dL (7-18); BUN/Creat Ratio 1.6 RATIO (10-20); Calcium,Total 8.1 mg/dL (8.5-10.1); Chloride 106 mmol/L (98-107); Creatinine, Serum 0.62 mg/dL (0.55-1.02); EST Glomerular Filtration Rate 117 mL/min (>60); Est Glom Filt Rate - Afr Amer 142 mL/min (>60); Estimated Creatinine Clearance 101.12 ml/min; Globulin 3.2 g/dL (2.2-4.2); Glucose 97 mg/dL (74-106); Potassium 3.2 mmol/L (3.5-5.1); Protein, Total 5.4 g/dL (6.4-8.2); Sodium Level 138 mmol/L (136-145)
[2022-06-19] MEDS: 0.9% Saline Lock 10 ML Syringe IV ×3 (11:21→17:36)
--- NOTE | 2022-06-19 12:32 | PCM.PROGNOTE ---
Subjective Subjective Patient says she feels weak and fatigued. She denies any nausea. She denies any chest pain or shortness of breath. Objective Data Objective Data Vital Signs: Vital Signs Temp Pulse Resp BP Pulse Ox O2 Del Method 98.4 F 99 18 98/78 92 Room Air 06/19/22 09:00 06/19/22 09:00 06/19/22 09:00 06/19/22 09:00 06/19/22 09:00 06/19/22 09:00 Oxygen Delivery Method Room Air Weight: 193 lb 3.2 oz Body Mass Index (BMI) 35.3 Intake & Output: Intake and Output for Last 24 Hours 06/17/22 06/18/22 06/19/22 23:59 23:59 23:59 Intake Total 5026.45 / 5026.45 3829.17 / 4329.17 2960.42 / 2960.42 Output Total 250 / 250 1950 / 1950 800 / 800 Balance 4776.45 / 4776.45 1879.17 / 2379.17 2160.42 / 2160.42 Lab / Micro Data Result Diagrams: 06/19/22 06:35 06/19/22 09:30 Labs: Laboratory Results - last 24 hr 06/19/22 06:35: PT 15.5 H, INR 1.3 06/19/22 06:35: WBC SURVEYING CREW RODMAN, Corrected WBC 14.6 H, RBC 2.92 L, Hgb 10.4 L, Hct 30.4 L, MCV 104.1 H, MCH 35.6 H, MCHC 34.2, RDW Std Deviation 59.0 H, RDW Coeff of Rebeka 15.9 H, Plt Count 321, MPV 10.7, Neut % (Auto) Not Reportable, Absolute Neuts (auto) 11.2 H, Absolute Lymphs (auto) 2.30, Total Counted 100, Neutrophils % (Manual) 76 H, Band Neutrophils % 1, Lymphocytes % (Manual) 16 L, Monocytes % (Manual) 5, Metamyelocytes % 1, Myelocytes % 1 H, Promyelocytes % 1 H, Nucleated RBCs/100 WBC 7 H, Diff Path Review October, Platelet Estimate ADEQUATE, Polychromasia RARE, Anisocytosis 1+ 06/19/22 06:35: Sodium 137, Potassium 3.2 L, Chloride 105, Carbon Dioxide 20.0 L, Anion Gap 12, BUN 2 L, Creatinine 0.62, Estim Creat Clear Calc 101.12, Est GFR (MDRD) Af Amer 142, Est GFR (MDRD) Non-Af 118, BUN/Creatinine Ratio 3.3 L, Glucose 75, Calcium 8.1 L, Total Bilirubin 13.10 H, AST 502 H, ALT 114 H, Alkaline Phosphatase 265 H, Total Protein 5.5 L, Albumin 2.1 L, Globulin 3.4, Albumin/Globulin Ratio 0.6 L 06/19/22 09:30: Sodium 138, Potassium 3.2 L, Chloride 106, Carbon Dioxide 20.0 L, Anion Gap 12, BUN 1 L, Creatinine 0.62, Estim Creat Clear Calc 101.12, Est GFR (MDRD) Af Amer 142, Est GFR (MDRD) Non-Af 117, BUN/Creatinine Ratio 1.6 L, Glucose 97, Calcium 8.1 L, Total Bilirubin 13.30 H, AST 501 H, ALT 112 H, Alkaline Phosphatase 265 H, Total Protein 5.4 L, Albumin 2.2 L, Globulin 3.2, Albumin/Globulin Ratio 0.7 L Micro: Microbiology 06/16/22 21:30 Urine, Clean Catch Urine Culture - Final Mixed Gram Pos & Gram Neg Org Physical Exam Const alert and no apparent distress Eyes Eyes Narrative: Icterus Resp normal respiratory effort, no retractions, no use of accessory muscles and clear to auscultation bilaterally Cardio regular rate, regular rhythm, S1 normal heart sound and S2 normal heart sound GI normal to inspection, nondistended, normoactive bowel sounds GI Narrative: Hepatosplenomegaly tender palpation. Assessment & Plan Assessment/Plan (1) Alcoholic hepatitis: PLAN: I suspect she does have acute alcoholic hepatitis in the setting of an acute viral hepatitis. Since her LFTs are not improving I will put her on Pentoxil filing 400 mg 3 times a day and I will start her on steroids . (2) Hepatic injury: PLAN: . Also the differential diagnosis for acute back injury would be autoimmune hepatitis, Abhilash's disease, ischemic hepatitis and concomitant drug-induced hepatitis secondary to antibiotics in the setting of alcoholic hepatitis and a viral hepatitis. All labs are pending. Charges/Coding Visit Charges Inpatient E&M: 57277 Subs Hosp L3
--- NOTE | 2022-06-19 13:15 | NURSING ---
Pt's sister and mother requested to talk to this RN. Sister says that pt has a problem with alcohol addiction. Says that pt is their father's medical POA and they will be revoking that. Says she will go on benders and be gone for days and living conditions are deplorable. Sister also says that pt is telling her that none of her medical problems are related to alcohol use. The sister and mother are going in to talk to pt now and wanted to let staff know about situation. They said they are going to encourage the pt to explore addiction programs upon discharge. They are interested in social work/case management presenting pt with options.
[2022-06-19] MEDS: Pentoxifylline 400 MG Tablet PO (16:30)
[2022-06-19] MEDS: hydrOXYzine 10 MG Tablet PO (17:35)
[2022-06-19] MEDS: guaiFENesin 600 MG Tablet PO (22:40)
[2022-06-20] VITALS (7 sets, daily range): BP systolic 118–147; BP diastolic 74–110; PULSE 90–98; RESP 18–24; TEMP 36.6–37.2; O2SAT 87–92
[2022-06-20] MEDS: Ondansetron 4 MG/2 ML Vial IV ×3 (00:33→16:30)
[2022-06-20] MEDS: oxyCODONE 5 MG Tablet PO ×4 (02:46→21:28)
[2022-06-20] MEDS: KCL 20MEQ in 0.9% NS 20 MEQ/1,000 ML IV.SOLN. 125 MEQ IV ×3 (04:02→21:28)
[2022-06-20 05:16] LABS: Hematocrit 30.5 % (37-47); Hemoglobin 10.4 g/dL (12.0-15.0); Mean Corp Hgb Conc 34.1 g/dL (32-36); Mean Corpuscular Hgb 35.1 pg (27.0-32.0); Mean Platelet Vol. 10.8 fl (6.2-12.0); POSITIVE COUNT YES; POSITIVE DIFFERENTIAL YES; POSITIVE MORPHOLOGY YES; Platelet Count 390 K/mm3 (150-450); RBC Distribution Width CV 16.4 % (11.6-14.6); RBC Distribution Width SD 60.6 fl (35.1-43.9); Red Blood Count 2.96 M/mm3 (4.2-5.4); White Blood Count 17.3 K/mm3 (4.4-11.0)
[2022-06-20 05:28] LABS: Differential Indicated MANUAL DIFF
[2022-06-20 06:02] LABS: International Normalized Ratio 1.3; Prothrombin Time (Protime)PT. 15.8 SECONDS (11.7-14.9)
[2022-06-20] MEDS: BENZOCAINE/MENTHOL 1 LOZENGE MUCOUS MEM ×2 (08:17→17:56)
[2022-06-20] MEDS: Loratadine 10 MG Tablet PO (08:17)
[2022-06-20] MEDS: guaiFENesin 600 MG Tablet PO ×2 (08:17→21:28)
[2022-06-20] MEDS: Pentoxifylline 400 MG Tablet PO ×3 (08:17→16:30)
[2022-06-20] MEDS: Potassium Chloride Oral Tablet 20 MEQ 40 MEQ PO ×2 (08:17→16:30)
[2022-06-20] MEDS: Hydroxychloroquine 200 MG Tablet PO ×2 (08:17→16:30)
[2022-06-20] MEDS: Multivitamins,Ther W-Minerals Tablet 1 TABLET PO (08:17)
[2022-06-20] MEDS: Pantoprazole Sodium 40 MG Tablet PO (08:17)
[2022-06-20 08:18] LABS: ALB/GLOB Ratio 0.7 RATIO (0.9-2.4); AST(SGOT) 545 U/L (15-37); Alanine Aminotransfer ALT/SGPT 135 U/L (13-56); Albumin, Serum 2.1 g/dL (3.2-5.0); Alkaline Phosphatase 291 U/L (45-117); Anion Gap 13 (5-15); BUN 3 mg/dL (7-18); BUN/Creat Ratio 5.6 RATIO (10-20); Calcium,Total 8.1 mg/dL (8.5-10.1); Chloride 107 mmol/L (98-107); Creatinine, Serum 0.53 mg/dL (0.55-1.02); EST Glomerular Filtration Rate 139 mL/min (>60); Est Glom Filt Rate - Afr Amer 168 mL/min (>60); Estimated Creatinine Clearance 118.29 ml/min; Glucose 121 mg/dL (74-106); LDH 932 U/L (84-246); Potassium 3.9 mmol/L (3.5-5.1); Protein, Total 5.1 g/dL (6.4-8.2); Sodium Level 141 mmol/L (136-145)
[2022-06-20 08:42] LABS: Lymphocyte 18 % (19-41); Metamyelocyte 1 % (0-1); Monocyte 3 % (0-10); Myelocyte 1 % (0-0); Neutrophil-Band 4 % (0-5); Neutrophil-Segmented 73 % (47-70); Nucleated Red Bld Cells,Manual 1 % (0-5); Platelet Estimate ADEQUATE (ADEQ); Red Cell Morphology NORM C+C NORMAL (NORM C&C); Total Cells Counted 100 (MANUAL DIFF)
[2022-06-20 08:43] LABS: Absolute Lymphocyte Count 3.11 X10^3/uL (0.83-4.51); Absolute Neutrophil Count 13.3 X10^3/uL (2.0-7.7)
[2022-06-20 08:55] LABS: Lactic Acid 2.2 mmol/L (0.4-1.9)
[2022-06-20 10:58] LABS: Pathologist Review Reviewed
--- NOTE | 2022-06-20 11:00 | PCM.PN.HOSP ---
Subjective Subjective Patient is a 36-year-old lady with history of alcohol dependence presented with abdominal pain cough bloating and jaundice. An assessment of acute hepatitis made admitted to regular nursing floor for further management Objective Data Objective Data Vital Signs: Vital Signs Temp Pulse Resp BP Pulse Ox O2 Del Method 98.2 F 92 18 118/74 92 Room Air 06/20/22 09:00 06/20/22 09:00 06/20/22 09:00 06/20/22 09:00 06/20/22 09:00 06/20/22 09:00 Oxygen Delivery Method Room Air Weight: 87.634 kg Body Mass Index (BMI) 35.3 Intake & Output: Intake and Output for Last 24 Hours 06/18/22 06/19/22 06/20/22 23:59 23:59 23:59 Intake Total 3829.17 / 4329.17 3956.25 / 3956.25 1887.5 / 1887.5 Output Total 1950 / 1950 800 / 800 500 / 500 Balance 1879.17 / 2379.17 3156.25 / 3156.25 1387.5 / 1387.5 Lab / Micro Data Result Diagrams: 06/20/22 04:38 06/20/22 04:38 Labs: Laboratory Results - last 24 hr 06/16/22 21:43: Diff Path Review Reviewed 06/20/22 04:38: PT 15.8 H, INR 1.3 06/20/22 04:38: WBC 17.3 H, RBC 2.96 L, Hgb 10.4 L, Hct 30.5 L, MCV 103.0 H, MCH 35.1 H, MCHC 34.1, RDW Std Deviation 60.6 H, RDW Coeff of Rebeka 16.4 H, Plt Count 390, MPV 10.8, Neut % (Auto) Not Reportable, Absolute Neuts (auto) 13.3 H, Absolute Lymphs (auto) 3.11, Total Counted 100, Neutrophils % (Manual) 73 H, Band Neutrophils % 4, Lymphocytes % (Manual) 18 L, Monocytes % (Manual) 3, Metamyelocytes % 1, Myelocytes % 1 H, Nucleated RBCs/100 WBC 1, Diff Path Review October, Platelet Estimate ADEQUATE, RBC Morphology NORM C+C 06/20/22 04:38: Sodium 141, Potassium 3.9, Chloride 107, Carbon Dioxide 21.0, Anion Gap 13, BUN 3 L, Creatinine 0.53 L, Estim Creat Clear Calc 118.29, Est GFR (MDRD) Af Amer 168, Est GFR (MDRD) Non-Af 139, BUN/Creatinine Ratio 5.6 L, Glucose 121 H, Calcium 8.1 L, Total Bilirubin 13.90 H, AST 545 H, ALT 135 H, Alkaline Phosphatase 291 H, Lactate Dehydrogenase 932 H, C-React Prot Ext Range 33.70 H, Total Protein 5.1 L, Albumin 2.1 L, Globulin 3.0, Albumin/Globulin Ratio 0.7 L 06/20/22 08:11: Lactic Acid 2.2 H* Micro: Microbiology 06/16/22 21:30 Urine, Clean Catch Urine Culture - Final Mixed Gram Pos & Gram Neg Org Physical Exam Narrative GENERAL: cooperative HEENT: Atraumatic; normocephalic EYES; icteric, Normal Conjunctiva NECK; supple, normal thyroid, RESPIRATORY: Diminished to auscultation CARDIOVASCULAR: Regular S1 S2, GI: soft, normoactive bowel sounds, : No Renal angle tenderness; EXTREMITIES: No edema, no clubbing, MUSCULOSKELETAL: no muscle wasting NEURO: Awake; no lateralizing signs. SKIN: No Rash PSYCH; Flat affect Assessment & Plan Assessment/Plan (1) Hepatic injury: PLAN: Plan Patient is a 36-year-old lady with history of alcohol dependence presented with abdominal pain cough bloating and jaundice. An assessment of acute hepatitis made admitted to regular nursing floor for further management 1. Acute hepatitis ? Secondary to acute alcoholic hepatitis in the setting of suspected viral hepatitis. Patient started on Truxophyllin further milligram 3 times daily as well as steroid. GI on consult monitor with daily LFTs acute viral hepatitis panel sent results pending 2. Hypokalemia ? Corrected per protocol repeat potassium level ordered for a.m. 3. Chronic alcohol dependence ? Counseled on cessation 4. Class II obesity with BMI of 35.3 ? Weight loss advised 5. Anemia ? Secondary to anemia of chronic disorder. Patient has microcytosis ordered B12 and folic acid levels 6. Leukocytosis ? Secondary to concomitant use of steroid, monitoring with daily CBC 7. DVT prophylaxis ? Low risk did encourage early ambulation Total time spent; 37-minute Charges/Coding Visit Charges Inpatient E&M: 27589 Subs Hosp L2
[2022-06-20 12:15] LABS: Reflex Lactate? Y
[2022-06-20 13:07] LABS: Anti-Centromere B Ab <0.2 AI (0.0-0.9); Anti-Chromatin <0.2 AI (0.0-0.9); Anti-Jo <0.2 AI (0.0-0.9); Anti-Scleroderma-70 AB <0.2 AI (0.0-0.9); RNP Ab <0.2 AI (0.0-0.9); SJOGREN'S Anti-SS-A test < 0.2 AI (0.0-0.9); SJOGREN'S Anti-SS-B test < 0.2 AI (0.0-0.9); Smith Ab <0.2 AI (0.0-0.9)
[2022-06-20] MEDS: hydrOXYzine 10 MG Tablet PO ×2 (13:35→21:28)
[2022-06-20 13:49] LABS: Lactic Acid 3.9 mmol/L (0.4-1.9)
--- NOTE | 2022-06-20 14:19 | NURSING ---
jay MITCHELL the primary nurse notified that lactic acid is 3.9
[2022-06-20 16:19] LABS: Anti-dsDNA Ab 1 IU/mL (0-9)
[2022-06-20 16:20] LABS: Anti-Mitochondrial AB <20.0 Units (0.0-20.0)
[2022-06-20] MEDS: 0.9% Saline Lock 10 ML Syringe IV ×2 (16:30→17:56)
--- NOTE | 2022-06-20 17:10 | PCM.PROGNOTE ---
Subjective Subjective Patient says that she still feels very fatigued, nauseous and bloated. Objective Data Objective Data Vital Signs: Vital Signs Temp Pulse Resp BP Pulse Ox O2 Del Method 99 F 93 18 142/81 H 92 Room Air 06/20/22 15:00 06/20/22 15:00 06/20/22 15:00 06/20/22 15:00 06/20/22 15:00 06/20/22 15:00 Oxygen Delivery Method Room Air Weight: 193 lb 3.2 oz Body Mass Index (BMI) 35.3 Intake & Output: Intake and Output for Last 24 Hours 06/18/22 06/19/22 06/20/22 23:59 23:59 23:59 Intake Total 3829.17 / 4329.17 3956.25 / 3956.25 2887.5 / 2887.5 Output Total 1950 / 1950 800 / 800 500 / 500 Balance 1879.17 / 2379.17 3156.25 / 3156.25 2387.5 / 2387.5 Lab / Micro Data Result Diagrams: 06/20/22 04:38 06/20/22 04:38 Labs: Laboratory Results - last 24 hr 06/16/22 21:43: Diff Path Review Reviewed 06/18/22 07:25: Anti-Mitochondrial Ab <20.0 06/18/22 07:25: SARAH-1 Antibody <0.2, SS-A/Ro IgG Antibody < 0.2, SS-B/La IgG Antibody < 0.2, Sm (Fatima) Antibody <0.2, SOFTWARE DEVELOPMENT ENGINEER Antibody <0.2, Scl-70 Scleroderma Ab <0.2, Double Strand DNA Ab 1, Centromere B Antibody <0.2 06/20/22 04:38: PT 15.8 H, INR 1.3 06/20/22 04:38: WBC 17.3 H, RBC 2.96 L, Hgb 10.4 L, Hct 30.5 L, MCV 103.0 H, MCH 35.1 H, MCHC 34.1, RDW Std Deviation 60.6 H, RDW Coeff of Rebeka 16.4 H, Plt Count 390, MPV 10.8, Neut % (Auto) Not Reportable, Absolute Neuts (auto) 13.3 H, Absolute Lymphs (auto) 3.11, Total Counted 100, Neutrophils % (Manual) 73 H, Band Neutrophils % 4, Lymphocytes % (Manual) 18 L, Monocytes % (Manual) 3, Metamyelocytes % 1, Myelocytes % 1 H, Nucleated RBCs/100 WBC 1, Diff Path Review October foll, Platelet Estimate ADEQUATE, RBC Morphology NORM C+C 06/20/22 04:38: Sodium 141, Potassium 3.9, Chloride 107, Carbon Dioxide 21.0, Anion Gap 13, BUN 3 L, Creatinine 0.53 L, Estim Creat Clear Calc 118.29, Est GFR (MDRD) Af Amer 168, Est GFR (MDRD) Non-Af 139, BUN/Creatinine Ratio 5.6 L, Glucose 121 H, Calcium 8.1 L, Total Bilirubin 13.90 H, AST 545 H, ALT 135 H, Alkaline Phosphatase 291 H, Lactate Dehydrogenase 932 H, C-React Prot Ext Range 33.70 H, Total Protein 5.1 L, Albumin 2.1 L, Globulin 3.0, Albumin/Globulin Ratio 0.7 L 06/20/22 08:11: Lactic Acid 2.2 H* 06/20/22 12:55: Lactic Acid 3.9 H* Micro: Microbiology 06/16/22 21:30 Urine, Clean Catch Urine Culture - Final Mixed Gram Pos & Gram Neg Org Physical Exam Narrative GENERAL: cooperative HEENT: Atraumatic; normocephalic EYES; icteric, Normal Conjunctiva NECK; supple, normal thyroid, RESPIRATORY: Diminished to auscultation CARDIOVASCULAR: Regular S1 S2, GI: soft, normoactive bowel sounds, : No Renal angle tenderness; EXTREMITIES: No edema, no clubbing, MUSCULOSKELETAL: no muscle wasting NEURO: Awake; no lateralizing signs. SKIN: No Rash PSYCH; Flat affect Assessment & Plan Assessment/Plan (1) Alcohol abuse: PLAN: We had a long talk today regarding her likely alcoholism. She says that she was not going to drink anymore and she would like help with this as an outpatient. She has not shown any signs of delirium tremens at this time. (2) Alcoholic hepatitis: PLAN: I suspect she does have acute alcoholic hepatitis in the setting of an acute viral hepatitis. Since her LFTs are not improving I will put her on Pentoxil filing 400 mg 3 times a day and I will start her on steroids . (3) Hepatic injury: PLAN: . Also the differential diagnosis for acute back injury would be autoimmune hepatitis, Abhilash's disease, ischemic hepatitis and concomitant drug-induced hepatitis secondary to antibiotics in the setting of alcoholic hepatitis and a viral hepatitis. All labs are pending. Her viral hepatitis labs are normal. Awaiting HIV and we will order a liver biopsy. Charges/Coding Visit Charges Inpatient E&M: 24856 Subs Hosp L3
[2022-06-20] MEDS: MELATONIN 3 MG TABLET PO (21:28)
[2022-06-21] VITALS (22 sets, daily range): BP systolic 100–139; BP diastolic 68–99; PULSE 79–107; RESP 16–35; TEMP 36.4–36.9; O2SAT 82–97
[2022-06-21] MEDS: Albuterol 2.5 MG/3 ML VIAL.NEB. INHALATION (01:45)
--- NOTE | 2022-06-21 02:16 | CPS ---
RT attempted to give patient PRN breathing treatment, Patient refused.
[2022-06-21] MEDS: oxyCODONE 5 MG Tablet PO ×4 (05:30→22:02)
[2022-06-21] MEDS: Ondansetron 4 MG/2 ML Vial IV ×3 (05:30→22:02)
[2022-06-21] MEDS: 0.9% Saline Lock 10 ML Syringe IV ×3 (05:30→17:14)
--- NOTE | 2022-06-21 08:30 | CT_ITS ---
PROCEDURE: CT DIRECTED CORE LIVER BIOPSY INDICATION: Female, 36 years old. Jaundice, acute HEPATITIS PHYSICIAN: Dr. ANDRE Eagle CONSENT: Written informed consent was obtained having explained the risks, benefits and alternatives in detail with the patient who accepted the risks and agreed to proceed. Laboratory review and clinical assessment was performed. CONSCIOUS SEDATION PROTOCOL: The Drugs used were: 2 mg Versed, IV., and 50 mcg Fentanyl, IV. The sedation time was: 15 minutes. Conscious sedation was started at 9:02 AM and terminated at 9:17 AM. The conscious sedation protocol was independently monitored. RADIATION DOSAGE (If Supplied By Facility): CTDIvol = ( 24 ) mGy, DLP = ( 682.87 ) mGycm Individualized dose optimization techniques were used for this CT. TECHNIQUE: Using CT image guidance with image documentation, a suitable location in the right lobe of the liver was identified. Using an anterior approach, puncture of the liver was uneventful with an 18-gauge core needle system. 3, 18-gauge core samples were obtained, and submitted in formalin to the pathologist for further assessment. Followup CT scan revealed no distinct sequelae. CT/Biopsy/Inj or Needle Placement IMPRESSION: 1. CT directed core needle biopsy of the liver, using CT image guidance with image documentation as described. 2. Conscious Sedation protocol utilized with independent monitoring. Electronically Signed: Micha Duvall MD at 10:14 EST ,
--- NOTE | 2022-06-21 08:33 | PN.HOSP_ITS ---
Subjective Subjective Follow-up acute transaminitis Per nursing staff patient went into acute respiratory distress during the evening resulting in patient being placed on supplemental oxygen seen this a.m. ordered chest x-ray, viral respiratory panel. Patient was placed on supplemental oxygen Objective Data Objective Data Vital Signs: Vital Signs Temp Pulse Resp BP Pulse Ox O2 Del Method O2 Flow Rate 97.6 F L 83 25 H 133/99 H 94 Nasal Cannula 4 06/21/22 08:25 06/21/22 08:25 06/21/22 08:25 06/21/22 08:25 06/21/22 08:25 06/21/22 08:25 06/21/22 08:25 Oxygen Flow Rate (L/min) 4 Oxygen Delivery Method Nasal Cannula Weight: 87.634 kg Body Mass Index (BMI) 35.3 Intake & Output: Intake and Output for Last 24 Hours 06/19/22 06/20/22 06/21/22 23:59 23:59 23:59 Intake Total 3956.25 / 3956.25 3887.5 / 4387.5 1004.17 / 1004.17 Output Total 800 / 800 500 / 500 Balance 3156.25 / 3156.25 3387.5 / 3887.5 1004.17 / 1004.17 Lab / Micro Data Result Diagrams: 06/20/22 04:38 06/20/22 04:38 Labs: Laboratory Results - last 24 hr 06/16/22 21:43: Diff Path Review Reviewed 06/18/22 07:25: Anti-Mitochondrial Ab <20.0 06/18/22 07:25: SARAH-1 Antibody <0.2, SS-A/Ro IgG Antibody < 0.2, SS-B/La IgG Antibody < 0.2, Sm (Fatima) Antibody <0.2, TRUCK RENTAL CLERK Antibody <0.2, Scl-70 Scleroderma Ab <0.2, Double Strand DNA Ab 1, Centromere B Antibody <0.2 06/20/22 04:38: Absolute Neuts (auto) 13.3 H, Absolute Lymphs (auto) 3.11, Total Counted 100, Neutrophils % (Manual) 73 H, Band Neutrophils % 4, Lymphocytes % (Manual) 18 L, Monocytes % (Manual) 3, Metamyelocytes % 1, Myelocytes % 1 H, Nucleated RBCs/100 WBC 1, Diff Path Review May foll, Platelet Estimate ADEQUATE, RBC Morphology NORM C+C 06/20/22 08:11: Lactic Acid 2.2 H* 06/20/22 12:55: Lactic Acid 3.9 H* Micro: Microbiology 06/16/22 21:30 Urine, Clean Catch Urine Culture - Final Mixed Gram Pos & Gram Neg Org Physical Exam Narrative GENERAL: cooperative HEENT: Atraumatic; normocephalic EYES; icteric, Normal Conjunctiva NECK; supple, normal thyroid, RESPIRATORY: Diminished to auscultation CARDIOVASCULAR: Regular S1 S2, GI: soft, normoactive bowel sounds, : No Renal angle tenderness; EXTREMITIES: No edema, no clubbing, MUSCULOSKELETAL: no muscle wasting NEURO: Awake; no lateralizing signs. SKIN: No Rash PSYCH; Flat affect Assessment & Plan Assessment/Plan (1) Hepatic injury: PLAN: Plan Patient is a 36-year-old lady with history of alcohol dependence presented with abdominal pain cough bloating and jaundice. An assessment of acute hepatitis made admitted to regular nursing floor for further management 1. Acute hepatitis ? Secondary to acute alcoholic hepatitis in the setting of suspected viral hepatitis. Patient started on Truxophyllin further milligram 3 times daily as well as steroid. GI on consult monitor with daily LFTs acute viral hepatitis panel sent results pending ? 06/21/2022 patient underwent liver biopsy this AM. 2. Hypokalemia ? Corrected per protocol repeat potassium level ordered for a.m. 3. Acute hypoxia ? Ordered chest x-ray, proBNP, acute viral respiratory panel and COVID-19. Did order Lasix 60 mg x 1 as well 4. Chronic alcohol dependence ? Counseled on cessation 5. Anemia ? Secondary to anemia of chronic disorder. Patient has microcytosis ordered B12 and folic acid levels 6. Leukocytosis ? Secondary to concomitant use of steroid, monitoring with daily CBC 7. 4. Class II obesity with BMI of 35.3 ? Weight loss advised DVT prophylaxis ? Low risk did encourage early ambulation Total time spent; 40 minute Charges/Coding Visit Charges Inpatient E&M: 54319 Subs Hosp L2
[2022-06-21] MEDS: fentaNYL 100 MCG/2 ML Ampul IV (09:02)
[2022-06-21] MEDS: Midazolam 2 MG/2 ML Syringe IV (09:02)
[2022-06-21] MEDS: Lidocaine 1% (20 ml mdv) 20 ML Vial INFILT (09:13)
--- NOTE | 2022-06-21 09:15 | LIVB_PTH ---
PATIENT: FLORENCIA REMY LOC: MS3 U#:[id number] AGE/SX: 36/F ROOM: SC321 RE06/17/[address]: Dr. Beck Singh MD : 1985 BED: 1 DIS: 06/23/2022 SPEC #: [id number] RECD: 06/21/22 09:25 STATUS: OSEI REQ #: [id number] GRACY: 06/21/22 09:[address]: Beck Singh DEPT: SURGICAL PATHOLOGY RECD BY: Valeria Gallegos ENTERED: 06/21/22 09:43 SP TYPE: LIVER BX OTHR DR: DO Dr. Charlse Gamboa MD Dr. Scott Hannan, MD Tissues: Liver, NOS Procedures: PAS with Diastase (control) Trichrome (control) Special Stain Group II PAS Stain (control) Surgery Specimen Level V Retic (control) Iron Stain (control) HEADER OPERATION: Liver biopsy PRE-OP DIAGNOSIS: Jaundice TISSUE SUBMITTED: Liver 18-gauge x3 MICROSCOPIC DIAGNOSIS Liver, needle core biopsy: Extensive macrovesicular steatosis (4/4). Portal inflammation without necrosis (grade 1). Minimal fibrosis confined to portal zones (stage 1). No evidence of cirrhosis. See comment. AM:luanne 06/22/2022 COMMENT Modified Knodell scoring system for chronic hepatitis was used in the evaluation of this case. Iron stain does not reveal accumulation of intraparenchymal iron. Reticulin stain reveals a normal hepatic architecture. Trichrome stain reveals fibrosis confined mainly to portal zones. PAS and PASD stains do not reveal accumulation of abnormal proteins. All Matched controls are appropriate. Case has been reviewed in consultation with Dr. Castellanos who concurs with the above diagnosis. IDC:[email or web address] MICROSCOPIC DESCRIPTION Slides are reviewed. GROSS DESCRIPTION Received is one container labeled with the patient's name and not further designated. The specimen consists of three elongated fragments of streeter soft tissue each measuring 2 cm in length and 0.1 cm in diameter. The entire specimen is submitted in one cassette. / SJ:luanne 06/21/2022 TC:3 CPT: 09986, 75904 x5
--- NOTE | 2022-06-21 10:09 | NURSING ---
Back From Radiology, Liver Bx at this time. This RN in Room Obtaining vitals.
--- NOTE | 2022-06-21 10:32 | NURSING ---
Dr. Singh in room recently with pt and this RN present. Dr. Singh aware that respirations were 33/min. Lasix, chest xray, covid and resp panel ordered.
[2022-06-21] MEDS: Furosemide 100 MG/10 ML Vial 60 MG IV (10:45)
[2022-06-21] MEDS: Potassium Chloride Oral Tablet 20 MEQ 40 MEQ PO ×2 (10:46→17:16)
[2022-06-21] MEDS: guaiFENesin 600 MG Tablet PO (10:47)
[2022-06-21] MEDS: Multivitamins,Ther W-Minerals Tablet 1 TABLET PO (10:47)
[2022-06-21] MEDS: Loratadine 10 MG Tablet PO (10:49)
[2022-06-21] MEDS: Pantoprazole Sodium 40 MG Tablet PO (10:49)
[2022-06-21] MEDS: Hydroxychloroquine 200 MG Tablet PO ×2 (10:49→17:16)
[2022-06-21 10:50] LABS: Hematocrit 32.3 % (37-47); Hemoglobin 10.7 g/dL (12.0-15.0); Mean Corp Hgb Conc 33.1 g/dL (32-36); Mean Corpuscular Hgb 34.5 pg (27.0-32.0); Mean Corpuscular Volume 104.2 fL (81-99); Mean Platelet Vol. 10.5 fl (6.2-12.0); POSITIVE COUNT YES; POSITIVE DIFFERENTIAL YES; POSITIVE MORPHOLOGY YES; Platelet Count 454 K/mm3 (150-450); RBC Distribution Width CV 16.7 % (11.6-14.6); RBC Distribution Width SD 61.6 fl (35.1-43.9)
[2022-06-21 10:56] LABS: Differential Indicated MANUAL DIFF
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
[2022-06-21 11:19] LABS: International Normalized Ratio 1.5; Prothrombin Time (Protime)PT. 17.7 SECONDS (11.7-14.9)
[2022-06-21 11:21] LABS: ALB/GLOB Ratio 0.5 RATIO (0.9-2.4); AST(SGOT) 651 U/L (15-37); Alanine Aminotransfer ALT/SGPT 198 U/L (13-56); Alkaline Phosphatase 320 U/L (45-117); Anion Gap 11 (5-15); BUN 7 mg/dL (7-18); BUN/Creat Ratio 11.6 RATIO (10-20); Calcium,Total 8.6 mg/dL (8.5-10.1); Chloride 108 mmol/L (98-107); EST Glomerular Filtration Rate 120 mL/min (>60); Est Glom Filt Rate - Afr Amer 146 mL/min (>60); Estimated Creatinine Clearance 104.49 ml/min; Globulin 3.8 g/dL (2.2-4.2); Glucose 103 mg/dL (74-106); Potassium 3.6 mmol/L (3.5-5.1); Protein, Total 5.8 g/dL (6.4-8.2); Sodium Level 141 mmol/L (136-145)
--- NOTE | 2022-06-21 11:30 | NURSING ---
pt just got back in bed from bathroom. PT SOB. This RN attached pt to Continous spo2 in the room. Spo2 showing 85% on 4l NC. This RN increased o2 to 5L NC at this time. This RN is in the room monitoring pt.
[2022-06-21 11:49] LABS: Lymphocyte 12 % (19-41); Metamyelocyte 2 % (0-1); Monocyte 4 % (0-10); Myelocyte 5 % (0-0); Neutrophil-Band 8 % (0-5); Neutrophil-Segmented 69 % (47-70); Nucleated Red Bld Cells,Manual 8 % (0-5); Total Cells Counted 100 (MANUAL DIFF)
[2022-06-21 11:55] LABS: Basophilic Stippling RARE; Hypochromasia 1+; Macrocytosis 1+; Polychromasia 1+
[2022-06-21 11:56] LABS: Platelet Estimate ADEQUATE (ADEQ)
[2022-06-21 11:58] LABS: Pathologist Review Reviewed
[2022-06-21 11:59] LABS: Absolute Lymphocyte Count 2.76 X10^3/uL (0.83-4.51); Absolute Neutrophil Count 17.7 X10^3/uL (2.0-7.7)
[2022-06-21 12:00] LABS: Erythrocyte Sedimentation Rate 67 mm/hr (0-30)
[2022-06-21 12:03] LABS: Pathologist Review Reviewed
[2022-06-21 12:11] LABS: Pathologist Review Reviewed
[2022-06-21] MEDS: Pentoxifylline 400 MG Tablet PO ×2 (12:19→17:16)
--- NOTE | 2022-06-21 12:22 | RAD_ITS ---
STUDY: X-RAY CHEST REASON FOR EXAM: Female, 36 years old. Coughing, increase o2 to 4L TECHNIQUE: Single AP portable view of the chest. COMPARISON: Comparison is made with prior study dated 02/04/2019. FINDINGS: Increased interstitial markings in both lungs. Focal area of low confluence in the left lower lobe suggestive of possible early left lower lobe infiltrate. There is no demonstrated pleural abnormality. Normal size heart. Normal mediastinum and sherrill. Normal visualized pulmonary arteries. Normal visualized aortic arch and descending thoracic aorta. Normal visualized thoracic spine. Hill-Sachs defect of the proximal right humerus most likely secondary to prior shoulder dislocation. There is no demonstrated abnormality of the visualized soft tissue structures of the upper abdomen. RAD/Chest 1 View (Portable) IMPRESSION: Increased interstitial markings in both lungs with focal area of confluence in the left lower lobe suggestive of left lower lobe infiltrate. Follow-up recommended. Electronically Signed: Micha Duvall MD at 12:56 EST ,
[2022-06-21 12:39] LABS: Pathologist Review Reviewed
--- NOTE | 2022-06-21 12:41 | NURSING ---
Aware that Chest xray just recently done, Radiology was in room.
[2022-06-21] MEDS: hydrOXYzine 10 MG Tablet PO ×2 (13:48→22:02)
[2022-06-21 14:29] LABS: BNP,B-Type NATRIURETIC PEPTIDE 134.7 pg/mL (0-100)
--- NOTE | 2022-06-21 14:45 | PCM.PROGNOTE ---
Subjective Subjective Patient underwent liver biopsy today. She has been complaining of shortness of breath and a cough. She had a chest x-ray that showed a possible left lower lobe infiltrate. She is being tested for COVID-19 and influenza. Objective Data Objective Data Vital Signs: Vital Signs Temp Pulse Resp BP Pulse Ox O2 Del Method O2 Flow Rate 97.6 F L 100 29 H 102/68 97 Nasal Cannula 6 06/21/22 13:20 06/21/22 13:20 06/21/22 13:20 06/21/22 13:20 06/21/22 13:20 06/21/22 13:20 06/21/22 13:20 Oxygen Flow Rate (L/min) [4] 4 Oxygen Flow Rate (L/min) [3] 4 Oxygen Flow Rate (L/min) [2] 4 Oxygen Flow Rate (L/min) [1 ( 4 Initial Baseline)] Oxygen Flow Rate (L/min) 6 Oxygen Delivery Method [4] Nasal Cannula Oxygen Delivery Method [3] Nasal Cannula Oxygen Delivery Method [2] Nasal Cannula Oxygen Delivery Method [1 ( Nasal Cannula Initial Baseline)] Oxygen Delivery Method Nasal Cannula Weight: 193 lb 3.198 oz Body Mass Index (BMI) 35.3 Intake & Output: Intake and Output for Last 24 Hours 06/19/22 06/20/22 06/21/22 23:59 23:59 23:59 Intake Total 3956.25 / 3956.25 3887.5 / 4387.5 1154.17 / 1154.17 Output Total 800 / 800 500 / 500 Balance 3156.25 / 3156.25 3387.5 / 3887.5 1154.17 / 1154.17 Lab / Micro Data Result Diagrams: 06/21/22 10:36 06/21/22 10:36 Labs: Laboratory Results - last 24 hr 06/17/22 06:30: Diff Path Review Reviewed 06/18/22 07:25: Diff Path Review Reviewed 06/18/22 07:25: Anti-Mitochondrial Ab <20.0 06/18/22 07:25: SARAH-1 Antibody <0.2, SS-A/Ro IgG Antibody < 0.2, SS-B/La IgG Antibody < 0.2, Sm (Fatima) Antibody <0.2, TELECOMMUNICATION SYSTEMS DESIGNER Antibody <0.2, Scl-70 Scleroderma Ab <0.2, Double Strand DNA Ab 1, Centromere B Antibody <0.2 06/19/22 06:35: Diff Path Review Reviewed 06/20/22 04:38: Diff Path Review Reviewed 06/21/22 10:36: WBC 23.0 H, Corrected WBC Not Reportable, RBC 3.10 L, Hgb 10.7 L, Hct 32.3 L, MCV 104.2 H, MCH 34.5 H, MCHC 33.1, RDW Std Deviation 61.6 H, RDW Coeff of Rebeka 16.7 H, Plt Count 454 H, MPV 10.5, Neut % (Auto) Not Reportable, Absolute Neuts (auto) 17.7 H, Absolute Lymphs (auto) 2.76, Total Counted 100, Neutrophils % (Manual) 69, Band Neutrophils % 8 H, Lymphocytes % (Manual) 12 L, Monocytes % (Manual) 4, Metamyelocytes % 2 H, Myelocytes % 5 H, Nucleated RBCs/100 WBC 8 H, Diff Path Review May foll, Platelet Estimate ADEQUATE, Polychromasia 1+, Hypochromasia 1+, Basophilic Stippling RARE, Macrocytosis 1+, ESR 67 H 06/21/22 10:36: PT 17.7 H, INR 1.5 06/21/22 10:36: Sodium 141, Potassium 3.6, Chloride 108 H, Carbon Dioxide 22.0, Anion Gap 11, BUN 7, Creatinine 0.60, Estim Creat Clear Calc 104.49, Est GFR (MDRD) Af Amer 146, Est GFR (MDRD) Non-Af 120, BUN/Creatinine Ratio 11.6, Glucose 103, Calcium 8.6, Total Bilirubin 13.80 H, AST 651 H, ALT 198 H, Alkaline Phosphatase 320 H, C-React Prot Ext Range 16.70 H, Total Protein 5.8 L, Albumin 2.0 L, Globulin 3.8, Albumin/Globulin Ratio 0.5 L 06/21/22 10:36: B-Natriuretic Peptide 134.7 H Micro: Microbiology 06/16/22 21:30 Urine, Clean Catch Urine Culture - Final Mixed Gram Pos & Gram Neg Org Radiography Diagnostic Testing: Radiology Impression Biopsy CT 06/21/22 08:30 IMPRESSION: 1. CT directed core needle biopsy of the liver, using CT image guidance with image documentation as described. 2. Conscious Sedation protocol utilized with independent monitoring. Electronically Signed: Micha Duvall MD at 10:14 EST , Chest X-Ray 06/21/22 12:22 IMPRESSION: Increased interstitial markings in both lungs with focal area of confluence in the left lower lobe suggestive of left lower lobe infiltrate. Follow-up recommended. Electronically Signed: Micha Duvall MD at 12:56 EST , Physical Exam Narrative GENERAL: cooperative HEENT: Atraumatic; normocephalic EYES; icteric, Normal Conjunctiva NECK; supple, normal thyroid, RESPIRATORY: Diminished to auscultation CARDIOVASCULAR: Regular S1 S2, GI: soft, normoactive bowel sounds, : No Renal angle tenderness; EXTREMITIES: No edema, no clubbing, MUSCULOSKELETAL: no muscle wasting NEURO: Awake; no lateralizing signs. SKIN: No Rash PSYCH; Flat affect Assessment & Plan Assessment/Plan (1) Alcohol abuse: PLAN: We had a long talk today regarding her likely alcoholism. She says that she was not going to drink anymore and she would like help with this as an outpatient. She has not shown any signs of delirium tremens at this time. (2) Alcoholic hepatitis: PLAN: I suspect she does have acute alcoholic hepatitis in the setting of an acute viral hepatitis. Since her LFTs are not improving I will put her on Pentoxil filing 400 mg 3 times a day and continue steroids for now pending liver biopsy results.. (3) Hepatic injury: PLAN: . Also the differential diagnosis for acute back injury would be autoimmune hepatitis, Abhilash's disease, ischemic hepatitis and concomitant drug-induced hepatitis secondary to antibiotics in the setting of alcoholic hepatitis and a viral hepatitis. All labs are pending. Her viral hepatitis labs are normal. Awaiting liver biopsy. She also takes hydrochloriquine. I do not think she has a rheumatologic diagnoses such as lupus erythematosus. Acute liver injury with jaundice due to hydroxychloroquine must be very rare, if it occurs at all. In clinical trials of hydroxychloroquine for COVID-19 prevention and treatment, there were no reports of hepatotoxicity and rates of serum enzyme elevations during hydroxychloroquine treatment were low and similar to those in patients receiving placebo or comparator agents. An exception to this is the use of hydroxychloroquine in patients with porphyria cutanea tarda. When used in relatively high doses, hydroxychloroquine can trigger an acute hepatic injury with sudden onset of fever and marked serum enzyme elevations with increased excretion of porphyrins. This reaction appears to be caused by the sudden mobilization of porphyrins and is often followed by an improvement in porphyric symptoms. The reaction is uncommon if therapy is started with lower doses of hydroxychloroquine and is less severe than similar reactions that occur with chloroquine. Indeed, chronic low doses of hydroxychloroquine (100 to 200 mg twice weekly) have been used to alleviate symptoms in patients with prophyria cutanea tarda who are resistant or intolerant of phlebotomy, the usual therapy of this condition. Awaiting liver biopsy (4) Leukocytosis: PLAN: The differential diagnosis for leukocytosis in this case would be left lower lobe pneumonia possibly secondary to a viral pneumonia, leukemoid reaction secondary to steroids or acute ongoing liver injury. Awaiting viral studies. She has not required any supplemental oxygen at this time. Charges/Coding Visit Charges Inpatient E&M: 07684 Subs Hosp L3
[2022-06-21 16:36] LABS: Anti-Smooth Muscle ABS 5 Units (0-19)
[2022-06-21 17:43] LABS: Lactic Acid 1.5 mmol/L (0.4-1.9)
[2022-06-21 18:24] LABS: M R Staph aureus DNA By PCR Negative (Negative); Probe Check PASS; Specimen Processing Control PASS
[2022-06-21] MEDS: Ipratropium/Albuterol Sulfate 3 ML AMPUL.NEB INHALATION (19:59)
[2022-06-21] MEDS: levoFLOXacin IV 750 MG/150 ML BAG 100 MG IV (20:01)
--- NOTE | 2022-06-21 20:56 | PCM.RX.CS ---
Consult Pharmacy has been consulted to manage selected antiobiotic: Vancomycin Type of Consult: New start Suspected Infection: Pneumonia Labs: Sodium 141 mmol/L (136-145) 06/21/22 10:36 Potassium 3.6 mmol/L (3.5-5.1) 06/21/22 10:36 Chloride 108 mmol/L (98-107) H 06/21/22 10:36 Carbon Dioxide 22.0 mmol/L (21.0-32.0) 06/21/22 10:36 Anion Gap 11 (5-15) 06/21/22 10:36 BUN 7 mg/dL (7-18) 06/21/22 10:36 Creatinine 0.60 mg/dL (0.55-1.02) 06/21/22 10:36 Est GFR (MDRD) Af Amer 146 mL/min (>60) 06/21/22 10:36 Est GFR (MDRD) Non-Af 120 mL/min (>60) 06/21/22 10:36 BUN/Creatinine Ratio 11.6 RATIO (10-20) 06/21/22 10:36 Glucose 103 mg/dL (74-106) 06/21/22 10:36 Microbiology: Microbiology 06/21/22 13:10 Mucosa - Nasopharyngeal Respiratory Panel (PCR) - Final 06/21/22 17:35 Urine, Random Legionella Antigen - Final 06/21/22 17:35 Urine, Random Streptococcus pneumoniae Antigen (M - Final 06/16/22 21:30 Urine, Clean Catch Urine Culture - Final Mixed Gram Pos & Gram Neg Org Weight used for dosin.6 kg Estimated Creatinine Clearance: 136mls/min Goal Trough: 15-20 mcg/mL Pharmacy Plan for Drug Dosing: NEW START IV VANCOMYCIN Consulting Physician: Dr. Singh Indication: Pneumonia Goal Trough: 15-20 SrCr: 0.6 (from 06/21/22) CrCl: 136mls/min (using adjusted body weight) Comments: pt received a 1250mg loading dose on 06/21/22 at 1714 Vancomycin Dose: based on pts weight and renal function, recommend an initial dose of 1000mg q8h starting 06/22/22 at 0100. trough before the 4th total dose Pending Level: 06/22/22 at 1630 Pharmacy Service will continue to monitor and adjust dosing as required. Follow-Up Labs: Trough Vancomycin - 06/22/22 at 1630
[2022-06-21] MEDS: MELATONIN 3 MG TABLET PO (22:02)
[2022-06-21] MEDS: guaiFENesin 1,200 MG Tablet 1200 MG PO (22:02)
[2022-06-22] VITALS (11 sets, daily range): BP systolic 113–144; BP diastolic 66–92; PULSE 82–91; RESP 18–24; TEMP 36.4–36.8; O2SAT 90–95
[2022-06-22] MEDS: Vancomycin IV 1,000 MG/200 ML BAG 200 MG IV ×3 (01:16→17:14)
[2022-06-22] MEDS: oxyCODONE 5 MG Tablet PO ×4 (03:46→20:25)
[2022-06-22] MEDS: 0.9% Saline Lock 10 ML Syringe IV ×2 (05:58→17:17)
[2022-06-22 06:07] LABS: Hematocrit 31.9 % (37-47); Hemoglobin 10.7 g/dL (12.0-15.0); Mean Corp Hgb Conc 33.5 g/dL (32-36); Mean Corpuscular Hgb 34.9 pg (27.0-32.0); Mean Corpuscular Volume 103.9 fL (81-99); Mean Platelet Vol. 10.9 fl (6.2-12.0); POSITIVE COUNT YES; POSITIVE DIFFERENTIAL YES; POSITIVE MORPHOLOGY YES; Platelet Count 455 K/mm3 (150-450); RBC Distribution Width CV 16.5 % (11.6-14.6); RBC Distribution Width SD 59.9 fl (35.1-43.9); Red Blood Count 3.07 M/mm3 (4.2-5.4); White Blood Count 20.1 K/mm3 (4.4-11.0)
[2022-06-22 06:15] LABS: International Normalized Ratio 1.3; Prothrombin Time (Protime)PT. 15.9 SECONDS (11.7-14.9)
[2022-06-22 06:32] LABS: Differential Indicated MANUAL DIFF
[2022-06-22 06:43] LABS: Anisocytosis 1+; Macrocytosis 1+; Platelet Estimate SLT INC (ADEQ)
[2022-06-22 06:48] LABS: Absolute Neutrophil Count 13.8 X10^3/uL (2.0-7.7)
[2022-06-22 06:49] LABS: Atypical Lymphocyte 1+ %; Lymphocyte 18 % (19-41); Metamyelocyte 1 % (0-1); Monocyte 7 % (0-10); Myelocyte 5 % (0-0); Neutrophil-Band 5 % (0-5); Neutrophil-Segmented 64 % (47-70); Total Cells Counted 106 (MANUAL DIFF)
[2022-06-22 07:10] LABS: AST(SGOT) 661 U/L (15-37); Alanine Aminotransfer ALT/SGPT 239 U/L (13-56); Albumin, Serum 2.2 g/dL (3.2-5.0); Alkaline Phosphatase 313 U/L (45-117); Anion Gap 12 (5-15); BUN 8 mg/dL (7-18); BUN/Creat Ratio 10.8 RATIO (10-20); Bilirubin, Direct 12.72 mg/dL (0.00-0.30); Calcium,Total 8.9 mg/dL (8.5-10.1); Chloride 104 mmol/L (98-107); Creatinine, Serum 0.74 mg/dL (0.55-1.02); EST Glomerular Filtration Rate 95 mL/min (>60); Est Glom Filt Rate - Afr Amer 115 mL/min (>60); Estimated Creatinine Clearance 84.72 ml/min; Globulin 3.7 g/dL (2.2-4.2); Glucose 109 mg/dL (74-106); Magnesium 2.1 mg/dL (1.6-2.6); Phosphorus 0.7 mg/dL (2.5-4.9); Potassium 3.4 mmol/L (3.5-5.1); Protein, Total 5.9 g/dL (6.4-8.2); Sodium Level 139 mmol/L (136-145)
[2022-06-22] MEDS: Multivitamins,Ther W-Minerals Tablet 1 TABLET PO (07:45)
[2022-06-22] MEDS: Potassium Chloride Oral Tablet 20 MEQ 40 MEQ PO ×2 (07:45→17:16)
[2022-06-22] MEDS: Pantoprazole Sodium 40 MG Tablet PO (07:46)
[2022-06-22] MEDS: Loratadine 10 MG Tablet PO (07:46)
[2022-06-22] MEDS: Pentoxifylline 400 MG Tablet PO ×3 (07:46→17:17)
[2022-06-22] MEDS: Ipratropium/Albuterol Sulfate 3 ML AMPUL.NEB INHALATION ×2 (07:49→19:31)
[2022-06-22] MEDS: Hydroxychloroquine 200 MG Tablet PO ×2 (07:49→17:17)
[2022-06-22] MEDS: guaiFENesin 1,200 MG Tablet 1200 MG PO ×2 (07:54→20:25)
--- NOTE | 2022-06-22 09:35 | PN.HOSP_ITS ---
Subjective Subjective Follow-up hypoxia Chest x-ray obtained the day prior did Increased interstitial markings in both lungs with focal area of confluence in the left lower lobe suggestive of left lower lobe infiltrate the patient started on broad-spectrum antibiotic therapy. Objective Data Objective Data Vital Signs: Vital Signs Temp Pulse Resp BP Pulse Ox O2 Del Method O2 Flow Rate 97.5 F L 90 22 H 116/72 93 Nasal Cannula 4 06/22/22 08:57 06/22/22 08:57 06/22/22 08:57 06/22/22 08:57 06/22/22 08:57 06/22/22 08:59 06/22/22 08:59 FiO2 40 06/22/22 01:19 Oxygen Flow Rate (L/min) [4] 4 Oxygen Flow Rate (L/min) [3] 4 Oxygen Flow Rate (L/min) [2] 4 Oxygen Flow Rate (L/min) [1 ( 4 Initial Baseline)] Oxygen Flow Rate (L/min) 4 Oxygen Delivery Method [4] Nasal Cannula Oxygen Delivery Method [3] Nasal Cannula Oxygen Delivery Method [2] Nasal Cannula Oxygen Delivery Method [1 ( Nasal Cannula Initial Baseline)] Oxygen Delivery Method Nasal Cannula Weight: 87.634 kg Body Mass Index (BMI) 35.3 Intake & Output: Intake and Output for Last 24 Hours 06/20/22 06/21/22 06/22/22 23:59 23:59 23:59 Intake Total 3887.5 / 4387.5 1679.17 / 1679.17 660 / 660 Output Total 500 / 500 1350 / 1350 Balance 3387.5 / 3887.5 1679.17 / 1679.17 -690 / -690 Lab / Micro Data Result Diagrams: 06/22/22 05:27 06/22/22 05:27 Labs: Laboratory Results - last 24 hr 06/17/22 06:30: Diff Path Review Reviewed 06/18/22 07:25: Diff Path Review Reviewed 06/19/22 06:35: Diff Path Review Reviewed 06/20/22 04:38: Diff Path Review Reviewed 06/20/22 08:11: Anti-Smooth Muscle Ab 5 06/21/22 10:36: WBC 23.0 H, Corrected WBC Not Reportable, RBC 3.10 L, Hgb 10.7 L , Hct 32.3 L, MCV 104.2 H, MCH 34.5 H, MCHC 33.1, RDW Std Deviation 61.6 H, RDW Coeff of Rebeka 16.7 H, Plt Count 454 H, MPV 10.5, Neut % (Auto) Not Reportable, Absolute Neuts (auto) 17.7 H, Absolute Lymphs (auto) 2.76, Total Counted 100, Neutrophils % (Manual) 69, Band Neutrophils % 8 H, Lymphocytes % (Manual) 12 L, Monocytes % (Manual) 4, Metamyelocytes % 2 H, Myelocytes % 5 H, Nucleated RBCs/100 WBC 8 H, Diff Path Review October, Platelet Estimate ADEQUATE, Polychromasia 1+, Hypochromasia 1+, Basophilic Stippling RARE, Macrocytosis 1+, ESR 67 H 06/21/22 10:36: PT 17.7 H, INR 1.5 06/21/22 10:36: Sodium 141, Potassium 3.6, Chloride 108 H, Carbon Dioxide 22.0, Anion Gap 11, BUN 7, Creatinine 0.60, Estim Creat Clear Calc 104.49, Est GFR (MDRD) Af Amer 146, Est GFR (MDRD) Non-Af 120, BUN/Creatinine Ratio 11.6, Glucose 103, Calcium 8.6, Total Bilirubin 13.80 H, AST 651 H, ALT 198 H, Alkaline Phosphatase 320 H, C-React Prot Ext Range 16.70 H, Total Protein 5.8 L, Albumin 2.0 L, Globulin 3.8, Albumin/Globulin Ratio 0.5 L 06/21/22 10:36: B-Natriuretic Peptide 134.7 H 06/21/22 13:10: COVID-19 ([place]) Not Detected 06/21/22 16:40: MRSA (PCR) Negative 06/21/22 16:58: Lactic Acid 1.5 06/22/22 05:27: WBC 20.1 H, RBC 3.07 L, Hgb 10.7 L, Hct 31.9 L, MCV 103.9 H, MCH 34.9 H, MCHC 33.5, RDW Std Deviation 59.9 H, RDW Coeff of Rebeka 16.5 H, Plt Count 455 H, MPV 10.9, Neut % (Auto) Not Reportable, Absolute Neuts (auto) 13.8 H, Absolute Lymphs (auto) 3.60, Total Counted 106, Neutrophils % (Manual) 64, Band Neutrophils % 5, Lymphocytes % (Manual) 18 L, Monocytes % (Manual) 7, Metamyelocytes % 1, Myelocytes % 5 H, Diff Path Review May foll, Atypical Lymphocytes 1+, Platelet Estimate SLT INC, Anisocytosis 1+, Macrocytosis 1+ 06/22/22 05:27: PT 15.9 H, INR 1.3 06/22/22 05:27: Sodium 139, Potassium 3.4 L, Chloride 104, Carbon Dioxide 23.0, Anion Gap 12, BUN 8, Creatinine 0.74, Estim Creat Clear Calc 84.72, Est GFR (MDRD) Af Amer 115, Est GFR (MDRD) Non-Af 95, BUN/Creatinine Ratio 10.8, Glucose 109 H, Calcium 8.9, Phosphorus 0.7 L*, Magnesium 2.1, Total Bilirubin 15.10 H*, Direct Bilirubin 12.72 H, AST 661 H, ALT 239 H, Alkaline Phosphatase 313 H, Total Protein 5.9 L, Albumin 2.2 L, Globulin 3.7 Micro: Microbiology 06/21/22 13:10 Mucosa - Nasopharyngeal Respiratory Panel (PCR) - Final 06/21/22 17:35 Urine, Random Legionella Antigen - Final 06/21/22 17:35 Urine, Random Streptococcus pneumoniae Antigen (M - Final 06/16/22 21:30 Urine, Clean Catch Urine Culture - Final Mixed Gram Pos & Gram Neg Org Radiography Diagnostic Testing: Radiology Impression Biopsy CT 06/21/22 08:30 IMPRESSION: 1. CT directed core needle biopsy of the liver, using CT image guidance with image documentation as described. 2. Conscious Sedation protocol utilized with independent monitoring. Electronically Signed: Micha Duvall MD at 10:14 EST , Chest X-Ray 06/21/22 12:22 IMPRESSION: Increased interstitial markings in both lungs with focal area of confluence in the left lower lobe suggestive of left lower lobe infiltrate. Follow-up recommended. Electronically Signed: Micha Duvall MD at 12:56 EST , Physical Exam Narrative GENERAL: cooperative HEENT: Atraumatic; normocephalic EYES; icteric, Normal Conjunctiva NECK; supple, normal thyroid, RESPIRATORY: Diminished to auscultation CARDIOVASCULAR: Regular S1 S2, GI: soft, normoactive bowel sounds, : No Renal angle tenderness; EXTREMITIES: No edema, no clubbing, MUSCULOSKELETAL: no muscle wasting NEURO: Awake; no lateralizing signs. SKIN: No Rash PSYCH; Flat affect Assessment & Plan Assessment/Plan (1) Hepatic injury: PLAN: Plan Patient is a 36-year-old lady with history of alcohol dependence presented with abdominal pain cough bloating and jaundice. An assessment of acute hepatitis made admitted to regular nursing floor for further management 1. Acute hepatitis ? Secondary to acute alcoholic hepatitis in the setting of suspected viral hepatitis. Patient started on Truxophyllin further milligram 3 times daily as well as steroid. GI on consult monitor with daily LFTs acute viral hepatitis panel sent results pending ? 06/21/2022 patient underwent liver biopsy this AM. 2. Hypokalemia ? Corrected per protocol repeat potassium level ordered for a.m. 3. Acute hypoxia ? Ordered chest x-ray, proBNP, acute viral respiratory panel and COVID-19. Did order Lasix 60 mg x 1 as well 4. Chronic alcohol dependence ? Counseled on cessation 5. Anemia ? Secondary to anemia of chronic disorder. Patient has microcytosis ordered B12 and folic acid levels 6. Pneumonia with suspected MDR's ? Patient was noted to have elevated WBC count. She also became hypoxic. Chest x-ray obtained the day prior did show increased interstitial markings in both lungs with focal area of confluence in the left lower lobe suggestive of left lower lobe infiltrate. Subsequently started on broad-spectrum antibiotic therapy. Placed on supplemental oxygen which has been titrated to keep s aturation greater than 90 7. 4. Class II obesity with BMI of 35.3 ? Weight loss advised DVT prophylaxis ? Low risk did encourage early ambulation Total time spent; 40 minute Charges/Coding Visit Charges Inpatient E&M: 20876 Subs Hosp L2
[2022-06-22] MEDS: levoFLOXacin IV 750 MG/150 ML BAG 100 MG IV (10:49)
[2022-06-22] MEDS: Na Biphos/Potassium Phosphate PACKET 1 PACKET PO ×3 (14:47→20:25)
[2022-06-22 16:16] LABS: Erythrocyte Sedimentation Rate 51 mm/hr (0-30)
[2022-06-22 16:49] LABS: Vancomycin, Trough Level 16.1 ug/mL (5.0-15.0)
--- NOTE | 2022-06-22 16:50 | PCM.PROGNOTE ---
Objective Data Objective Data Vital Signs: Vital Signs Temp Pulse Resp BP Pulse Ox O2 Del Method O2 Flow Rate 98.2 F 83 20 H 125/78 H 92 Nasal Cannula 4 06/22/22 13:59 06/22/22 13:59 06/22/22 13:59 06/22/22 13:59 06/22/22 13:59 06/22/22 14:00 06/22/22 14:00 FiO2 40 06/22/22 01:19 Oxygen Flow Rate (L/min) [4] 4 Oxygen Flow Rate (L/min) [3] 4 Oxygen Flow Rate (L/min) [2] 4 Oxygen Flow Rate (L/min) [1 ( 4 Initial Baseline)] Oxygen Flow Rate (L/min) 4 Oxygen Delivery Method [4] Nasal Cannula Oxygen Delivery Method [3] Nasal Cannula Oxygen Delivery Method [2] Nasal Cannula Oxygen Delivery Method [1 ( Nasal Cannula Initial Baseline)] Oxygen Delivery Method Nasal Cannula Weight: 193 lb 3.198 oz Body Mass Index (BMI) 35.3 Intake & Output: Intake and Output for Last 24 Hours 06/20/22 06/21/22 06/22/22 23:59 23:59 23:59 Intake Total 3887.5 / 4387.5 1679.17 / 1679.17 1760 / 1760 Output Total 500 / 500 1350 / 1350 Balance 3387.5 / 3887.5 1679.17 / 1679.17 410 / 410 Lab / Micro Data Result Diagrams: 06/22/22 05:27 06/22/22 05:27 Labs: Laboratory Results - last 24 hr 06/21/22 16:40: MRSA (PCR) Negative 06/21/22 16:58: Lactic Acid 1.5 06/22/22 05:27: WBC 20.1 H, RBC 3.07 L, Hgb 10.7 L, Hct 31.9 L, MCV 103.9 H, MCH 34.9 H, MCHC 33.5, RDW Std Deviation 59.9 H, RDW Coeff of Rebeka 16.5 H, Plt Count 455 H, MPV 10.9, Neut % (Auto) Not Reportable, Absolute Neuts (auto) 13.8 H, Absolute Lymphs (auto) 3.60, Total Counted 106, Neutrophils % (Manual) 64, Band Neutrophils % 5, Lymphocytes % (Manual) 18 L, Monocytes % (Manual) 7, Metamyelocytes % 1, Myelocytes % 5 H, Diff Path Review May foll, Atypical Lymphocytes 1+, Platelet Estimate SLT INC, Anisocytosis 1+, Macrocytosis 1+ 06/22/22 05:27: PT 15.9 H, INR 1.3 06/22/22 05:27: Sodium 139, Potassium 3.4 L, Chloride 104, Carbon Dioxide 23.0, Anion Gap 12, BUN 8, Creatinine 0.74, Estim Creat Clear Calc 84.72, Est GFR (MDRD) Af Amer 115, Est GFR (MDRD) Non-Af 95, BUN/Creatinine Ratio 10.8, Glucose 109 H, Calcium 8.9, Phosphorus 0.7 L*, Magnesium 2.1, Total Bilirubin 15.10 H*, Direct Bilirubin 12.72 H, AST 661 H, ALT 239 H, Alkaline Phosphatase 313 H, Total Protein 5.9 L, Albumin 2.2 L, Globulin 3.7 06/22/22 05:27: ESR 51 H 06/22/22 05:27: C-React Prot Ext Range 11.70 H 06/22/22 16:19: Vancomycin Trough 16.1 H Micro: Microbiology 06/21/22 13:10 Mucosa - Nasopharyngeal Respiratory Panel (PCR) - Final 06/21/22 17:35 Urine, Random Legionella Antigen - Final 06/21/22 17:35 Urine, Random Streptococcus pneumoniae Antigen (M - Final 06/16/22 21:30 Urine, Clean Catch Urine Culture - Final Mixed Gram Pos & Gram Neg Org Physical Exam Narrative GENERAL: cooperative HEENT: Atraumatic; normocephalic EYES; icteric, Normal Conjunctiva NECK; supple, normal thyroid, RESPIRATORY: Diminished to auscultation CARDIOVASCULAR: Regular S1 S2, GI: soft, normoactive bowel sounds, : No Renal angle tenderness; EXTREMITIES: No edema, no clubbing, MUSCULOSKELETAL: no muscle wasting NEURO: Awake; no lateralizing signs. SKIN: No Rash PSYCH; Flat affect Assessment & Plan Assessment/Plan (1) Alcohol abuse: PLAN: We had a long talk today regarding her likely alcoholism. She says that she was not going to drink anymore and she would like help with this as an outpatient. She has not shown any signs of delirium tremens at this time. (2) Alcoholic hepatitis: PLAN: I suspect she does have acute alcoholic hepatitis in the setting of an acute viral hepatitis. Since her LFTs are not improving I will put her on Pentoxil filing 400 mg 3 times a day and continue steroids for now. Alcoholic hepatitis is an acute form of alcohol-induced liver injury, ranges from mild to severe, and usually presents on the background of chronic liver disease. It is clinically defined as recent onset or worsening of jaundice in a patient with chronic heavy alcohol use until at least 6 weeks prior to presentation, elevated liver enzymes with an aspartate aminotransferase to alanine aminotransferase ratio of >1.5:1, with absolute values of these enzymes not exceeding 500 IU/L and exclusion of other liver diseases . Severe AH is often a progressive disease with a 28-day mortality of 20?50% , hence a definite diagnosis is helpful. For a definite diagnosis of AH, a histological evidence of the disease is required besides clinical and biochemical criteria, as 10?20% of AH patients may have other liver diseases. Predominant histological lesions that characterize AH include the coexistence of steatosis, hepatocyte ballooning, and inflammatory infiltrates, mainly with neutrophils, called satellitosis . Her liver biopsies did not show significant steatosis without fibrosis or scarring. She did have some mild inflammation around the portal triad which can be seen acute liver injury secondary to medications. Her Madrey score calculated 3 days ago was 34 and it is still similar at 36. This is because her bilirubin went up slightly. She will need a mildly score calculated to see is beneficial to stay on steroids for more than 30 days for diagnosis of severe acute alcoholic hepatitis. Her viral hepatitis studies are negative thus far. Antibodies for Abhilash's disease, primary biliary cirrhosis are also negative. (3) Leukocytosis: PLAN: The differential diagnosis for leukocytosis in this case would be left lower lobe pneumonia possibly secondary to a viral pneumonia, leukemoid reaction secondary to steroids or acute ongoing liver injury. Awaiting viral studies. She has not required any supplemental oxygen at this time.
[2022-06-22] MEDS: Ondansetron 4 MG/2 ML Vial IV (17:12)
--- NOTE | 2022-06-22 17:14 | PCM.RX.CS ---
Consult Pharmacy has been consulted to manage selected antiobiotic: Vancomycin Type of Consult: Follow-up Suspected Infection: Pneumonia Labs: Sodium 139 mmol/L (136-145) 06/22/22 05:27 Potassium 3.4 mmol/L (3.5-5.1) L 06/22/22 05:27 Chloride 104 mmol/L (98-107) 06/22/22 05:27 Carbon Dioxide 23.0 mmol/L (21.0-32.0) 06/22/22 05:27 Anion Gap 12 (5-15) 06/22/22 05:27 BUN 8 mg/dL (7-18) 06/22/22 05:27 Creatinine 0.74 mg/dL (0.55-1.02) 06/22/22 05:27 Est GFR (MDRD) Af Amer 115 mL/min (>60) 06/22/22 05:27 Est GFR (MDRD) Non-Af 95 mL/min (>60) 06/22/22 05:27 BUN/Creatinine Ratio 10.8 RATIO (10-20) 06/22/22 05:27 Glucose 109 mg/dL (74-106) H 06/22/22 05:27 Vancomycin Trough 16.1 ug/mL (5.0-15.0) H 06/22/22 16:19 Microbiology: Microbiology 06/21/22 13:10 Mucosa - Nasopharyngeal Respiratory Panel (PCR) - Final 06/21/22 17:35 Urine, Random Legionella Antigen - Final 06/21/22 17:35 Urine, Random Streptococcus pneumoniae Antigen (M - Final 06/16/22 21:30 Urine, Clean Catch Urine Culture - Final Mixed Gram Pos & Gram Neg Org Goal Trough: 15-20 mcg/mL Pharmacy Plan for Drug Dosing: VANCOMYCIN LEVEL RECEIVED Current Vancomycin Dose: 1000MG IV Q8H Number of Doses Received: 3 Vancomycin Level: 16.1 Hours Since Last Dose: 6.5HR Renal Function: 0.74 Renal Function Trend: STABLE Lab/Micro: PENDING Vancomycin Plan/Comments: The patient had a trough drawn which resulted in a value of 16.1 (goal 15-20). Patient is within goal trough range. Will continue current dose and recheck a trough in 2 days. Will continue to monitor for any changes in renal function, and recheck a trough sooner if this happens. Pending Level: 06/24/21 @1630 Pharmacy Service will continue to monitor and adjust dosing as required.
[2022-06-22] MEDS: MELATONIN 3 MG TABLET PO (23:22)
[2022-06-23] VITALS (10 sets, daily range): BP systolic 106–135; BP diastolic 75–88; PULSE 81–101; RESP 18–25; TEMP 36.6–37.1; O2SAT 83–95
[2022-06-23] MEDS: hydrOXYzine 10 MG Tablet PO ×2 (00:07→08:57)
[2022-06-23] MEDS: oxyCODONE 5 MG Tablet PO ×3 (01:22→17:54)
[2022-06-23] MEDS: Vancomycin IV 1,000 MG/200 ML BAG 200 MG IV ×2 (01:22→12:10)
[2022-06-23] MEDS: Ipratropium/Albuterol Sulfate 3 ML AMPUL.NEB INHALATION ×3 (01:41→13:39)
[2022-06-23 06:23] LABS: Hematocrit 29.4 % (37-47); Hemoglobin 9.9 g/dL (12.0-15.0); Mean Corp Hgb Conc 33.7 g/dL (32-36); Mean Corpuscular Hgb 35.5 pg (27.0-32.0); Mean Corpuscular Volume 105.4 fL (81-99); Mean Platelet Vol. 10.6 fl (6.2-12.0); POSITIVE COUNT YES; POSITIVE MORPHOLOGY YES; Platelet Count 416 K/mm3 (150-450); RBC Distribution Width CV 16.9 % (11.6-14.6); RBC Distribution Width SD 60.2 fl (35.1-43.9); Red Blood Count 2.79 M/mm3 (4.2-5.4)
[2022-06-23 06:41] LABS: Differential Indicated MANUAL DIFF
[2022-06-23 07:13] LABS: AST(SGOT) 595 U/L (15-37); Alanine Aminotransfer ALT/SGPT 278 U/L (13-56); Alkaline Phosphatase 274 U/L (45-117); Anion Gap 8 (5-15); BUN 9 mg/dL (7-18); BUN/Creat Ratio 14.2 RATIO (10-20); Bilirubin, Direct 11.31 mg/dL (0.00-0.30); Calcium,Total 8.7 mg/dL (8.5-10.1); Chloride 106 mmol/L (98-107); Creatinine, Serum 0.63 mg/dL (0.55-1.02); EST Glomerular Filtration Rate 114 mL/min (>60); Est Glom Filt Rate - Afr Amer 138 mL/min (>60); Estimated Creatinine Clearance 99.52 ml/min; Globulin 3.4 g/dL (2.2-4.2); Glucose 117 mg/dL (74-106); Potassium 3.6 mmol/L (3.5-5.1); Protein, Total 5.4 g/dL (6.4-8.2); Sodium Level 139 mmol/L (136-145)
[2022-06-23 07:14] LABS: Anisocytosis 1+; Macrocytosis 2+
[2022-06-23 07:15] LABS: Platelet Estimate ADEQUATE (ADEQ)
[2022-06-23 07:17] LABS: Absolute Lymphocyte Count 2.69 X10^3/uL (0.83-4.51); Absolute Neutrophil Count 13.4 X10^3/uL (2.0-7.7); Red Cell Morphology NORM C+C NORMAL (NORM C&C)
[2022-06-23 07:18] LABS: Corrected WBC 17.8 K/mm3 (4.4-11.0); Lymphocyte 14 % (19-41); Metamyelocyte 2 % (0-1); Monocyte 7 % (0-10); Myelocyte 7 % (0-0); Neutrophil-Band 9 % (0-5); Neutrophil-Segmented 61 % (47-70); Nucleated Red Bld Cells,Manual 8 % (0-5); Total Cells Counted 100 (MANUAL DIFF)
[2022-06-23] MEDS: Multivitamins,Ther W-Minerals Tablet 1 TABLET PO (08:56)
[2022-06-23] MEDS: Pentoxifylline 400 MG Tablet PO ×2 (08:56→12:16)
[2022-06-23] MEDS: Loratadine 10 MG Tablet PO (08:56)
[2022-06-23] MEDS: Hydroxychloroquine 200 MG Tablet PO (08:57)
[2022-06-23] MEDS: Na Biphos/Potassium Phosphate PACKET 1 PACKET PO ×2 (08:58→14:55)
[2022-06-23] MEDS: Pantoprazole Sodium 40 MG Tablet PO (08:58)
[2022-06-23] MEDS: Ondansetron 4 MG/2 ML Vial IV (09:04)
[2022-06-23] MEDS: 0.9% Saline Lock 10 ML Syringe IV ×2 (09:04→12:04)
[2022-06-23 09:18] LABS: Pathologist Review Reviewed
[2022-06-23 09:30] LABS: Pathologist Review Reviewed
--- NOTE | 2022-06-23 09:35 | CASEMGMT ---
Notified in rounds that pt will be dc'd on home oxygen today. PAULA CM in to pt room, discussed homegoing oxygen process. Provided pt with a verbal local list of DME companies. Pt very upset that she is being dc'd. Pt hesitant to decide but after time did decide to go with [employer]. Pt states she has a pox at home. Pt denies further homegoing needs.
--- NOTE | 2022-06-23 09:42 | PN.HOSP_ITS ---
Subjective Subjective Follow-up acute alcoholic hepatitis Pathology report as below. Extensive macrovesicular steatosis (4/4). Portal inflammation without necrosis (grade 1). Minimal fibrosis confined to portal zones (stage 1). No evidence of cirrhosis Case discussed with Dr. López. Patient will be discharged home on steroid with plans for patient to follow-up with both primary care physician as well as Dr. López as outpatient Objective Data Objective Data Vital Signs: Vital Signs Temp Pulse Resp BP Pulse Ox O2 Del Method O2 Flow Rate 98.7 F 98 25 H 106/75 94 High Flow 5 06/23/22 08:47 06/23/22 08:47 06/23/22 08:47 06/23/22 08:47 06/23/22 08:47 06/23/22 08:47 06/23/22 08:47 FiO2 40 06/22/22 01:19 Oxygen Flow Rate (L/min) [4] 4 Oxygen Flow Rate (L/min) [3] 4 Oxygen Flow Rate (L/min) [2] 4 Oxygen Flow Rate (L/min) [1 ( 4 Initial Baseline)] Oxygen Flow Rate (L/min) 5 Oxygen Delivery Method [4] Nasal Cannula Oxygen Delivery Method [3] Nasal Cannula Oxygen Delivery Method [2] Nasal Cannula Oxygen Delivery Method [1 ( Nasal Cannula Initial Baseline)] Oxygen Delivery Method High Flow Weight: 87.634 kg Body Mass Index (BMI) 35.3 Intake & Output: Intake and Output for Last 24 Hours 06/21/22 06/22/22 06/23/22 23:59 23:59 23:59 Intake Total 1679.17 / 1679.17 2710 / 2710 200 / 200 Output Total 1950 / 1950 Balance 1679.17 / 1679.17 760 / 760 200 / 200 Lab / Micro Data Result Diagrams: 06/23/22 05:50 06/23/22 05:50 Labs: Laboratory Results - last 24 hr 06/21/22 10:36: Diff Path Review Reviewed 06/22/22 05:27: Diff Path Review Reviewed 06/22/22 05:27: ESR 51 H 06/22/22 05:27: C-React Prot Ext Range 11.70 H 06/22/22 16:19: Vancomycin Trough 16.1 H 06/23/22 05:50: 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, 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 WBC 17.8 H, RBC 2.79 L, Hgb 9.9 L, Hct 29.4 L, MCV 105.4 H, MCH 35.5 H, MCHC 33.7, RDW Std Deviation 60.2 H, RDW Coeff of Rebeka 16.9 H, Plt Count 416, MPV 10.6, Neut % (Auto) Not Reportable, Absolute Neuts ( auto) 13.4 H, Absolute Lymphs (auto) 2.69, Total Counted 100, Neutrophils % (Manual) 61, Band Neutrophils % 9 H, Lymphocytes % (Manual) 14 L, Monocytes % (Manual) 7, Metamyelocytes % 2 H, Myelocytes % 7 H, Nucleated RBCs/100 WBC 8 H, Diff Path Review October, Platelet Estimate ADEQUATE, RBC Morphology NORM C+C, Anisocytosis 1+, Macrocytosis 2+ 06/23/22 05:50: Sodium 139, Potassium 3.6, Chloride 106, Carbon Dioxide 25.0, Anion Gap 8, BUN 9, Creatinine 0.63, Estim Creat Clear Calc 99.52, Est GFR (MDRD) Af Amer 138, Est GFR (MDRD) Non-Af 114, BUN/Creatinine Ratio 14.2, Glucose 117 H, Calcium 8.7, Total Bilirubin 13.40 H, Direct Bilirubin 11.31 H, AST 595 H, ALT 278 H, Alkaline Phosphatase 274 H, Total Protein 5.4 L, Albumin 2.0 L, Globulin 3.4 Micro: Microbiology 06/21/22 13:10 Mucosa - Nasopharyngeal Respiratory Panel (PCR) - Final 06/21/22 17:35 Urine, Random Legionella Antigen - Final 06/21/22 17:35 Urine, Random Streptococcus pneumoniae Antigen (M - Final 06/16/22 21:30 Urine, Clean Catch Urine Culture - Final Mixed Gram Pos & Gram Neg Org Physical Exam Narrative GENERAL: cooperative HEENT: Atraumatic; normocephalic EYES; icteric, Normal Conjunctiva NECK; supple, normal thyroid, RESPIRATORY: Diminished to auscultation CARDIOVASCULAR: Regular S1 S2, GI: soft, normoactive bowel sounds, : No Renal angle tenderness; EXTREMITIES: No edema, no clubbing, MUSCULOSKELETAL: no muscle wasting NEURO: Awake; no lateralizing signs. SKIN: No Rash PSYCH; Flat affect Assessment & Plan Assessment/Plan (1) Hepatic injury: PLAN: Plan Patient is a 36-year-old lady with history of alcohol dependence presented with abdominal pain cough bloating and jaundice. An assessment of acute hepatitis made admitted to regular nursing floor for further management 1. Acute hepatitis ? Secondary to acute alcoholic hepatitis in the setting of suspected viral hepat itis. Patient started on Truxophyllin further milligram 3 times daily as well as steroid. GI on consult monitor with daily LFTs acute viral hepatitis panel sent results pending ? 06/21/2022 patient underwent liver biopsy this AM. -06/23/2022 pathology report as below. Extensive macrovesicular steatosis (4/4). Portal inflammation without necrosis (grade 1). Minimal fibrosis confined to portal zones (stage 1). No evidence of cirrhosis Case discussed with Dr. López. Patient will be discharged home on steroid with plans for patient to follow-up with both primary care physician as well as Dr. López as outpatient 2. Hypokalemia ? Corrected per protocol repeat potassium level ordered for a.m. 3. Acute hypoxia ? Ordered chest x-ray, proBNP, acute viral respiratory panel and COVID-19. Did order Lasix 60 mg x 1 as well 4. Chronic alcohol dependence ? Counseled on cessation 5. Anemia ? Secondary to anemia of chronic disorder. Patient has microcytosis ordered B12 and folic acid levels 6. Pneumonia with suspected MDR's ? Patient was noted to have elevated WBC count. She also became hypoxic. Chest x-ray obtained the day prior did show increased interstitial markings in both lungs with focal area of confluence in the left lower lobe suggestive of left lower lobe infiltrate. Subsequently started on broad-spectrum antibiotic therapy. Placed on supplemental oxygen which has been titrated to keep saturation greater than 90 ? 06/23/2022; discharged on cefdinir 7. Class II obesity with BMI of 35.3 ? Weight loss advised 8. DVT prophylaxis ? Low risk did encourage early ambulation Total time spent; 40 minute Charges/Coding Visit Charges Inpatient E&M: 11117 Subs Hosp L2
[2022-06-23] MEDS: levoFLOXacin IV 750 MG/150 ML BAG 100 MG IV (10:19)
[2022-06-23] MEDS: Potassium Chloride Oral Tablet 20 MEQ 40 MEQ PO (10:23)
[2022-06-23] MEDS: guaiFENesin 1,200 MG Tablet 1200 MG PO (10:24)
--- NOTE | 2022-06-23 11:10 | PCM.DC.SUM ---
Providers Date of Admission: 06/17/22 Date of Discharge: 06/23/22 Primary Care Physician: Dr. Teddy Mcleod MD Consultations 06/17/22 08:43 Consult: Gastroenterology Routine Consulting Provider: [facility] Reason for Consult: hepatitis EMERGENT Consult: No MD Notified: Yes Date Notified: 06/17/22 Time Notified: 08:43 Method of Notification: Text Reason For Visit: ACUTE HEPATIC INJURY Diagnosis Discharge Diagnosis (1) Hepatic injury: Status: Acute Code(s): S36.119A - Unspecified injury of liver, initial encounter Plan Patient is a 36-year-old lady with history of alcohol dependence presented with abdominal pain cough bloating and jaundice. An assessment of acute hepatitis made admitted to regular nursing floor for further management 1. Acute hepatitis ? Secondary to acute alcoholic hepatitis in the setting of suspected viral hepatitis. Patient started on Truxophyllin further milligram 3 times daily as well as steroid. GI on consult monitor with daily LFTs acute viral hepatitis panel sent results pending ? 06/21/2022 patient underwent liver biopsy this AM. -06/23/2022 pathology report as below. Extensive macrovesicular steatosis (4/4). Portal inflammation without necrosis (grade 1). Minimal fibrosis confined to portal zones (stage 1). No evidence of cirrhosis Case discussed with Dr. López. Patient will be discharged home on steroid with plans for patient to follow-up with both primary care physician as well as Dr. López as outpatient 2. Hypokalemia ? Corrected per protocol repeat potassium level ordered for a.m. 3. Acute hypoxia ? Ordered chest x-ray, proBNP, acute viral respiratory panel and COVID-19. Did order Lasix 60 mg x 1 as well ? 06/23/2022 patient was treated with antibiotics for possible pneumonia. Was assessed for oxygen requirements on discharge she did qualify she would need portability since he is active both at home as well as in the community 4. Chronic alcohol dependence ? Counseled on cessation 5. Anemia ? Secondary to anemia of chronic disorder. Patient has microcytosis ordered B12 and folic acid levels 6. Pneumonia with suspected MDR's ? Patient was noted to have elevated WBC count. She also became hypoxic. Chest x-ray obtained the day prior did show increased interstitial markings in both lungs with focal area of confluence in the left lower lobe suggestive of left lower lobe infiltrate. Subsequently started on broad-spectrum antibiotic therapy. Placed on supplemental oxygen which has been titrated to keep saturation greater than 90 ? 06/23/2022; discharged on cefdinir 7. Class II obesity with BMI of 35.3 ? Weight loss advised 8. DVT prophylaxis ? Low risk did encourage early ambulation Total time spent; 40 minute Medications at Discharge Home Medications multivitamin,[id number] 27 mg-0.4 mg tablet 1 tab PO DAILY supplement 01/29/14 hydroxychloroquine 200 mg tablet (Plaquenil) 200 mg PO BID RA 12/28/17 loratadine 10 mg tablet (Claritin) 10 mg PO BID allergies 12/28/17 omeprazole 40 mg capsule,delayed release 40 mg PO DAILY GERD 11/19/21 ondansetron HCl 4 mg tablet 4 mg PO Q6H PRN PRN Nausea 06/17/22 potassium chloride 20 mEq tablet,extended release 20 meq PO DAILY supplement 06/17/22 cefdinir 300 mg capsule 300 mg PO BID ANTIBIOTICS 7 days #14 caps 06/23/22 prednisolone 5 mg tablet 20 mg PO BID 28 days #224 tabs 06/23/22 Hospital Course Summary of Care Provided Minutes Spent on Discharge: 40 Physical Exam Narrative GENERAL: cooperative HEENT: Atraumatic; normocephalic EYES; icteric, Normal Conjunctiva NECK; supple, normal thyroid, RESPIRATORY: Diminished to auscultation CARDIOVASCULAR: Regular S1 S2, GI: soft, normoactive bowel sounds, : No Renal angle tenderness; EXTREMITIES: No edema, no clubbing, MUSCULOSKELETAL: no muscle wasting NEURO: Awake; no lateralizing signs. 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 H, RBC 2.79 L, Hgb 9.9 L, Hct 29.4 L, MCV 105.4 H, MCH 35.5 H, MCHC 33.7, RDW Std Deviation 60.2 H, RDW Coeff of Rebeka 16.9 H, Plt Count 416, MPV 10.6, Neut % (Auto) Not Reportable, Absolute Neuts (auto) 13.4 H, Absolute Lymphs (auto) 2.69, Total Counted 100, Neutrophils % (Manual) 61, Band Neutrophils % 9 H, Lymphocytes % (Manual) 14 L, Monocytes % (Manual) 7, Metamyelocytes % 2 H, Myelocytes % 7 H, Nucleated RBCs/100 WBC 8 H, Diff Path Review May foll, Platelet Estimate ADEQUATE, RBC Morphology NORM C+C, Anisocytosis 1+, Macrocytosis 2+ 06/23/22 05:50: Sodium 139, Potassium 3.6, Chloride 106, Carbon Dioxide 25.0, Anion Gap 8, BUN 9, Creatinine 0.63, Estim Creat Clear Calc 99.52, Est GFR (MDRD) Af Amer 138, Est GFR (MDRD) Non-Af 114, BUN/Creatinine Ratio 14.2, Glucose 117 H, Calcium 8.7, Total Bilirubin 13.40 H, Direct Bilirubin 11.31 H, AST 595 H, ALT 278 H, Alkaline Phosphatase 274 H, Total Protein 5.4 L, Albumin 2.0 L, Globulin 3.4 Microbiology: Microbiology 06/21/22 13:10 Mucosa - Nasopharyngeal Respiratory Panel (PCR) - Final 06/21/22 17:35 Urine, Random Legionella Antigen - Final 06/21/22 17:35 Urine, Random Streptococcus pneumoniae Antigen (M - Final 06/16/22 21:30 Urine, Clean Catch Urine Culture - Final Mixed Gram Pos & Gram Neg Org D/C Instructions Discharge Diet: No restrictions Discharge Activity: Return to Normal Activity Call your doctor if you observe: Fever of 101 or Higher, Shortness of breath, Fainting spells and Chest pain Meaningful Use Info Meaningful Use Diagnoses (Choose all that apply): None applicable Discharge Plan Admission Admit Date/Time: 06/17/22 00:58 Attending Provider: Beck Singh Primary Care Provider: Teddy Mcleod Consulting Providers: Charles Brady ; Ander Pastor Instructions Patient Instructions: AUDREY RN Biopsy Liver Dc, AUDREY RN Procedural Sedation Discharge Orders/Prescriptions Prescriptions: New prednisolone 5 mg tablet 20 mg PO BID 28 Days Qty: 224 0RF Continued hydroxychloroquine [Plaquenil] 200 mg tablet 200 mg PO BID loratadine [Claritin] 10 mg tablet 10 mg PO BID omeprazole 40 mg capsule,delayed release(DR/EC) 40 mg PO DAILY multivitamin,[id number]-bmcy-zvaqgers 1 TABLET tablet 1 tab PO DAILY ondansetron HCl 4 mg tablet 4 mg PO Q6H PRN PRN (Reason: Nausea) Label Comments: take 1 tablet by mouth every 6 hours if needed for nausea and vomiting potassium chloride 20 mEq tablet extended release 20 meq PO DAILY Label Comments: take 1 tablet by mouth once daily with food cefdinir 300 mg capsule 300 mg PO BID 7 Days Qty: 14 0RF Label Comments: take 1 capsule by mouth every 12 hours for 4 days Discontinued etodolac 400 mg tablet 500 mg PO BID Referrals / Follow Up: Jose López DO [Med Staff - Active Staff] - Within 1 Week (For repeat hepatic function level and response to therapy evaluation) Teddy Mcleod MD [Primary Care Provider] - In 1 Week (For repeat CMP) Disposition Disposition (needs filled in before D/C Order can be placed): Home, Self Care Charges/Coding Visit Charges Inpatient E&M: 38535 Disch Hosp >30min
[2022-06-23] MEDS: Furosemide 100 MG/10 ML Vial 80 MG IV (12:04)
--- NOTE | 2022-06-23 16:51 | CASEMGMT ---
Social Work Pt is ready for discharge. SW met with pt and discussed meeting with addiction therapist as on outpt. Pt is agreeable and choosing [facility]. Phone call to [facility] and appointment set with individual counselor on 06/30/22 at 11:45. Pt notified and agreeable to appointment. Information entered on pt discharge plan. Ayesha ANDERSON
[2022-06-23 21:45] LABS: CMV Acute Antibody IgM < 30.0 AU/mL (0.0-29.9); CMV Antibody IgG > 10.00 U/mL (0.00-0.59); Copper, Serum or Plasma 114 ug/dL (80-158); EBV Acute VCA IgM < 36.0 U/mL (0.0-35.9); EBV Nuclear Antigen IgG > 600.0 U/mL (0.0-17.9); EBV-VCA IgG > 600.0 U/mL (0.0-17.9)
[2022-06-24 00:06] LABS: Ceruloplasmin 26.8 mg/dL (19.0-39.0); Cytoplasmic Ab (C-ANCA) <1:20 titer (Neg:<1:20); IgG, Quant 725 mg/dL (586-1602); Immunoglobulin A 271 mg/dL (87-352); Immunoglobulin E 331 IU/mL (6-495); Immunoglobulin G, Subclass 1 372 mg/dL (248-810); Immunoglobulin G, Subclass 2 217 mg/dL (130-555); Immunoglobulin G, Subclass 3 43 mg/dL (15-102); Immunoglobulin G, Subclass 4 22 mg/dL (2-96); Immunoglobulin M 120 mg/dL (26-217)
[2022-06-24 11:44] LABS: Pathologist Review Reviewed
[2022-06-24 16:08] LABS: Copper, Serum or Plasma 118 ug/dL (80-158); Haptoglobin 27 mg/dL (33-278); Perinuclear Ab (P-ANCA) <1:20 titer (Neg:<1:20)
== END 2022-06-23 17:55 | disposition home or self-care (01) | DRG 432 ==
LOC: ED 06-17 01:04 → MS3 06-17 01:31
PROVIDERS: Internal Medicine Gastroenterology; Admitting Provider Hospitalist; Emergency Provider Emergency Medicine; PCP Family Medicine; Visit Provider Internal Medicine
DX: K70.10 Alcoholic hepatitis without ascites (principal); J18.9 Pneumonia, unspecified organism; S36.119A Unspecified injury of liver, initial encounter; E87.1 Hypo-osmolality and hyponatremia; D63.8 Anemia in other chronic diseases classified elsewhere; E87.8 Other disorders of electrolyte and fluid balance, not elsewhere classified; M06.9 Rheumatoid arthritis, unspecified; K76.0 Fatty (change of) liver, not elsewhere classified; F17.210 Nicotine dependence, cigarettes, uncomplicated; M79.10 Myalgia, unspecified site; K82.8 Other specified diseases of gallbladder; E87.6 Hypokalemia; F10.10 Alcohol abuse, uncomplicated; D72.823 Leukemoid reaction; Z79.1 Long term (current) use of non-steroidal anti-inflammatories (NSAID); R09.02 Hypoxemia; E66.9 Obesity, unspecified; Z68.35 Body mass index [BMI] 35.0-35.9, adult
CPT/HCPCS: 36415; 71045; 74177; 77012; 80048; 80053; 80074; 80076; 80202; 81001; 82077; 82140; 82390; 82525; 82728; 82784; 82785; 82787; 82977; 83010; 83516; 83605; 83615; 83690; 83735; 83880; 84100; 84703; 85025; 85610; 85652; 85730; 86140; 86225; 86235; 86256; 86644; 86645; 86664; 86665; 86703; 87040; 87086; 87088; 87449; 87633; 87635; 87641; 88307; 88313; 93005; 94640; 94667; 94668; 94762; 99156; 99284; 99406; J7030; J7050; Q9967; A4216; J1940; J2405; U0003; U0005

== ENCOUNTER → 2022-06-29 | Outpatient (CLI) | payer BC, SELFPAY ==
[2022-06-29 14:26] LABS: Erythrocyte Sedimentation Rate 32 mm/hr (0-30)
[2022-06-29 14:28] LABS: Hematocrit 38.8 % (37-47); Hemoglobin 12.6 g/dL (12.0-15.0); Mean Corp Hgb Conc 32.5 g/dL (32-36); Mean Corpuscular Hgb 35.6 pg (27.0-32.0); Mean Corpuscular Volume 109.6 fL (81-99); Mean Platelet Vol. 10.7 fl (6.2-12.0); POSITIVE COUNT YES; POSITIVE MORPHOLOGY YES; Platelet Count 492 K/mm3 (150-450); RBC Distribution Width CV 18.5 % (11.6-14.6); RBC Distribution Width SD 72.3 fl (35.1-43.9); Red Blood Count 3.54 M/mm3 (4.2-5.4); White Blood Count 22.3 K/mm3 (4.4-11.0)
[2022-06-29 14:54] LABS: ALB/GLOB Ratio 0.7 RATIO (0.9-2.4); AST(SGOT) 398 U/L (15-37); Alanine Aminotransfer ALT/SGPT 462 U/L (13-56); Alkaline Phosphatase 268 U/L (45-117); Anion Gap 7 (5-15); BUN 13 mg/dL (7-18); BUN/Creat Ratio 18.9 RATIO (10-20); CRP 3.45 mg/L (0.0-3.0); Calcium,Total 10.2 mg/dL (8.5-10.1); Chloride 103 mmol/L (98-107); Creatinine, Serum 0.69 mg/dL (0.55-1.02); EST Glomerular Filtration Rate 103 mL/min (>60); Est Glom Filt Rate - Afr Amer 125 mL/min (>60); Globulin 4.5 g/dL (2.2-4.2); Glucose 114 mg/dL (74-106); Potassium 4.3 mmol/L (3.5-5.1); Protein, Total 7.5 g/dL (6.4-8.2); Sodium Level 136 mmol/L (136-145)
[2022-06-29 14:59] LABS: Lymphocyte 12 % (19-41); Monocyte 1 % (0-10); Myelocyte 3 % (0-0); Neutrophil-Segmented 84 % (47-70); Total Cells Counted 100 (MANUAL DIFF)
[2022-06-29 15:01] LABS: Anisocytosis 1+; Reactive Lymphocyte 1+
[2022-06-29 15:02] LABS: Platelet Estimate SLT INC (ADEQ); Stomatocyte 1+
[2022-06-29 15:03] LABS: Differential Indicated MANUAL DIFF
[2022-06-29 15:04] LABS: Absolute Neutrophil Count 18.7 X10^3/uL (2.0-7.7)
[2022-07-01 10:07] LABS: Pathologist Review Reviewed
== END | disposition home or self-care (01) ==
LOC: LAB 13:57
PROVIDERS: PCP Family Medicine; Referring Provider Internal Medicine Gastroenterology; Visit Provider Internal Medicine Gastroenterology
DX: S36.119A Unspecified injury of liver, initial encounter (principal)
CPT/HCPCS: 36415; 80053; 85025; 85652; 86140

== ENCOUNTER → 2022-07-06 | Outpatient (CLI) | payer BC, SELFPAY ==
[2022-07-06 15:53] LABS: Absolute Lymphocyte Count 1.52 X10^3/uL (0.83-4.51); Absolute Neutrophil Count 9.5 X10^3/uL (2.0-7.7); Basophil# 0.03 X10^3/uL; Basophil% 0.2 % (0-1); Eosinophil# 0.08 X10^3/uL; Eosinophils% 0.7 % (0-5); Hematocrit 34.8 % (37-47); Hemoglobin 11.3 g/dL (12.0-15.0); Lymphocyte # 1.52 X10^3/ul (0.83-4.51); Lymphocyte % 12.6 % (19-41); Mean Corp Hgb Conc 32.5 g/dL (32-36); Mean Corpuscular Hgb 36.2 pg (27.0-32.0); Mean Corpuscular Volume 111.5 fL (81-99); Mean Platelet Vol. 10.2 fl (6.2-12.0); Monocyte# 0.65 X10^3/uL; Monocyte% 5.4 % (0-10); NRBC Flagged by Analyzer 0.3 % (0-5); Neutrophil # 9.46 X10^3/uL (2.7-7.7); Neutrophil % 78.8 % (47-70); Platelet Count 451 K/mm3 (150-450); RBC Distribution Width CV 15.9 % (11.6-14.6); RBC Distribution Width SD 64.7 fl (35.1-43.9); Red Blood Count 3.12 M/mm3 (4.2-5.4)
[2022-07-06 16:31] LABS: ALB/GLOB Ratio 0.8 RATIO (0.9-2.4); AST(SGOT) 261 U/L (15-37); Alanine Aminotransfer ALT/SGPT 445 U/L (13-56); Alkaline Phosphatase 147 U/L (45-117); Anion Gap 8 (5-15); BUN 14 mg/dL (7-18); BUN/Creat Ratio 24.8 RATIO (10-20); Calcium,Total 9.2 mg/dL (8.5-10.1); Chloride 106 mmol/L (98-107); Creatinine, Serum 0.56 mg/dL (0.55-1.02); EST Glomerular Filtration Rate 130 mL/min (>60); Est Glom Filt Rate - Afr Amer 157 mL/min (>60); Glucose 130 mg/dL (74-106); Sodium Level 138 mmol/L (136-145)
== END | disposition home or self-care (01) ==
LOC: LAB 14:55
PROVIDERS: PCP Family Medicine; Visit Provider Internal Medicine Gastroenterology
DX: K70.10 Alcoholic hepatitis without ascites (principal)
CPT/HCPCS: 36415; 80053; 85025

== ENCOUNTER → 2022-08-08 | Outpatient (CLI) | payer BC, SELFPAY ==
[2022-08-08 17:51] LABS: AST(SGOT) 36 U/L (15-37); Alanine Aminotransfer ALT/SGPT 45 U/L (13-56); Albumin, Serum 3.2 g/dL (3.2-5.0); Alkaline Phosphatase 68 U/L (45-117); Anion Gap 6 (5-15); BUN 8 mg/dL (7-18); BUN/Creat Ratio 12.4 RATIO (10-20); Calcium,Total 9.1 mg/dL (8.5-10.1); Chloride 110 mmol/L (98-107); Creatinine, Serum 0.64 mg/dL (0.55-1.02); EST Glomerular Filtration Rate 112 mL/min (>60); Est Glom Filt Rate - Afr Amer 135 mL/min (>60); Globulin 3.3 g/dL (2.2-4.2); Glucose 122 mg/dL (74-106); Potassium 3.3 mmol/L (3.5-5.1); Protein, Total 6.5 g/dL (6.4-8.2); Sodium Level 140 mmol/L (136-145)
== END | disposition home or self-care (01) ==
LOC: BFHLAB 14:10
PROVIDERS: PCP Family Medicine; Visit Provider Family Medicine
DX: K70.10 Alcoholic hepatitis without ascites (principal)
CPT/HCPCS: 36415; 80053

== ENCOUNTER → 2022-09-22 | Outpatient (CLI) | payer BC, SELFPAY ==
[2022-09-22 11:28] LABS: Absolute Neutrophil Count 2.5 X10^3/uL (2.0-7.7); Basophil# 0.06 X10^3/uL; Basophil% 0.9 % (0-1); Eosinophil# 0.08 X10^3/uL; Eosinophils% 1.3 % (0-5); Hematocrit 51.5 % (37-47); Hemoglobin 17.3 g/dL (12.0-15.0); Lymphocyte % 48.7 % (19-41); Mean Corp Hgb Conc 33.6 g/dL (32-36); Mean Corpuscular Hgb 34.8 pg (27.0-32.0); Mean Corpuscular Volume 103.6 fL (81-99); Mean Platelet Vol. 9.2 fl (6.2-12.0); Monocyte# 0.62 X10^3/uL; Monocyte% 9.7 % (0-10); NRBC Flagged by Analyzer 0 % (0-5); Neutrophil # 2.48 X10^3/uL (2.7-7.7); Neutrophil % 39.1 % (47-70); Platelet Count 251 K/mm3 (150-450); RBC Distribution Width SD 61.7 fl (35.1-43.9); Red Blood Count 4.97 M/mm3 (4.2-5.4); White Blood Count 6.4 K/mm3 (4.4-11.0)
[2022-09-22 12:00] LABS: AST(SGOT) 216 U/L (15-37); Alanine Aminotransfer ALT/SGPT 135 U/L (13-56); Albumin, Serum 3.7 g/dL (3.2-5.0); Alkaline Phosphatase 126 U/L (45-117); Anion Gap 5 (5-15); BUN 4 mg/dL (7-18); BUN/Creat Ratio 7.2 RATIO (10-20); Calcium,Total 9.1 mg/dL (8.5-10.1); Chloride 110 mmol/L (98-107); Creatinine, Serum 0.56 mg/dL (0.55-1.02); EST Glomerular Filtration Rate 132 mL/min (>60); Est Glom Filt Rate - Afr Amer 159 mL/min (>60); Globulin 3.7 g/dL (2.2-4.2); Glucose 87 mg/dL (74-106); Potassium 3.5 mmol/L (3.5-5.1); Protein, Total 7.4 g/dL (6.4-8.2); Sodium Level 141 mmol/L (136-145)
== END | disposition home or self-care (01) ==
LOC: LAB 11:12
PROVIDERS: PCP Family Medicine; Referring Provider Internal Medicine Gastroenterology; Visit Provider Internal Medicine Gastroenterology
DX: K70.10 Alcoholic hepatitis without ascites (principal); S36.119A Unspecified injury of liver, initial encounter
CPT/HCPCS: 36415; 80053; 85025

== ENCOUNTER → 2022-11-17 | Outpatient (CLI) | payer BC, SELFPAY ==
[2022-11-17 15:42] LABS: Erythrocyte Sedimentation Rate 7 mm/hr (0-30)
[2022-11-17 15:55] LABS: Absolute Lymphocyte Count 2.04 X10^3/uL (0.83-4.51); Absolute Neutrophil Count 3.7 X10^3/uL (2.0-7.7); Basophil# 0.06 X10^3/uL; Basophil% 0.9 % (0-1); Eosinophil# 0.06 X10^3/uL; Eosinophils% 0.9 % (0-5); Hematocrit 42.3 % (37-47); Hemoglobin 14.3 g/dL (12.0-15.0); Lymphocyte # 2.04 X10^3/ul (0.83-4.51); Lymphocyte % 31.2 % (19-41); Mean Corp Hgb Conc 33.8 g/dL (32-36); Mean Corpuscular Volume 100.7 fL (81-99); Mean Platelet Vol. 10.4 fl (6.2-12.0); Monocyte# 0.71 X10^3/uL; Monocyte% 10.9 % (0-10); NRBC Flagged by Analyzer 0 % (0-5); Neutrophil # 3.65 X10^3/uL (2.7-7.7); Neutrophil % 55.8 % (47-70); Platelet Count 329 K/mm3 (150-450); RBC Distribution Width CV 15.6 % (11.6-14.6); White Blood Count 6.5 K/mm3 (4.4-11.0)
[2022-11-17 16:24] LABS: Alcohol, Blood (Medical)-Serum < 3.0 mg/dL
[2022-11-17 16:28] LABS: AST(SGOT) 59 U/L (15-37); Alanine Aminotransfer ALT/SGPT 160 U/L (13-56); BUN 8 mg/dL (7-18); CRP < 2.90 mg/L (0.0-3.0); Creatinine, Serum 0.58 mg/dL (0.55-1.02); EST Glomerular Filtration Rate 125 mL/min (>60); Est Glom Filt Rate - Afr Amer 152 mL/min (>60); Rheumatoid Factor < 10.0 IU/mL (<15)
[2022-11-17 17:11] LABS: HIV - WCH Non-Reactive (Nonreactive); Hepatitis B Surface Antibody Reactive; Hepatitis B Surface Antigen Non-Reactive (Nonreactive); Hepatitis C Antibody Non-Reactive (Nonreactive)
[2022-11-19 17:07] LABS: CCP IgG Antibodies 3 units (0-19); Hepatitis B Core Ab Total Negative (Negative); QNTFERON TB Mitogen Value > 10.00 IU/mL (.); QNTFERON TB Nil Value 0.02 IU/mL (.); QNTFERON TB1+ Ag Value 0 IU/mL (.); QNTFERON TB2+ Ag Value 0 IU/mL (.); QNTIFERON TB Positive Criteria Negative (Negative)
== END | disposition home or self-care (01) ==
PROVIDERS: PCP Family Medicine; Visit Provider Internal Medicine Rheumatology
DX: Z11.59 Encounter for screening for other viral diseases (principal); M06.09 Rheumatoid arthritis without rheumatoid factor, multiple sites
CPT/HCPCS: 36415; 82077; 82565; 84450; 84460; 84520; 85025; 85652; 86140; 86200; 86431; 86480; 86703; 86704; 86706; 86803; 87340

== ENCOUNTER → 2022-11-24 | Outpatient (CLI) | payer BC, SELFPAY | END | disposition home or self-care (01) | LOC: PSN 08:18 | PROVIDERS: PCP Family Medicine; Referring Provider Family Medicine; Visit Provider Family Medicine | DX: R56.9 Unspecified convulsions (principal) | CPT/HCPCS: 95819 ==

== ENCOUNTER 2023-02-09 19:34 | Inpatient (IN) | payer BC, SELFPAY ==
[2023-02-09 19:35] VITALS: BP 151/108; PULSE 119; RESP 16; TEMP 36.1; O2SAT 98; BMI 29.5
[2023-02-09 20:02] LABS: Absolute Lymphocyte Count 3.51 X10^3/uL (0.83-4.51); Absolute Neutrophil Count 2.1 X10^3/uL (2.0-7.7); Basophil# 0.08 X10^3/uL; Basophil% 1.3 % (0-1); Eosinophil# 0.03 X10^3/uL; Eosinophils% 0.5 % (0-5); Hematocrit 43.9 % (37-47); Hemoglobin 15.4 g/dL (12.0-15.0); Lymphocyte # 3.51 X10^3/ul (0.83-4.51); Lymphocyte % 57.4 % (19-41); Mean Corp Hgb Conc 35.1 g/dL (32-36); Mean Corpuscular Hgb 35.4 pg (27.0-32.0); Mean Corpuscular Volume 100.9 fL (81-99); Monocyte# 0.43 X10^3/uL; NRBC Flagged by Analyzer 0 % (0-5); Neutrophil # 2.06 X10^3/uL (2.7-7.7); Neutrophil % 33.6 % (47-70); Platelet Count 129 K/mm3 (150-450); RBC Distribution Width CV 12.8 % (11.6-14.6); Red Blood Count 4.35 M/mm3 (4.2-5.4); White Blood Count 6.1 K/mm3 (4.4-11.0)
[2023-02-09 20:19] LABS: Internal QC Validated? YES +Cl - CLEAR BKGD; Pregnancy, Serum, hCG Quali. NEGATIVE Negative
[2023-02-09 20:23] LABS: Anion Gap 13 (5-15); BUN 7 mg/dL (7-18); BUN/Creat Ratio 12.8 RATIO (10-20); Calcium,Total 8.8 mg/dL (8.5-10.1); Chloride 102 mmol/L (98-107); Creatinine, Serum 0.55 mg/dL (0.55-1.02); EST Glomerular Filtration Rate 134 mL/min (>60); Est Glom Filt Rate - Afr Amer 162 mL/min (>60); Estimated Creatinine Clearance 107.73 ml/min; Glucose 89 mg/dL (74-106); Potassium 3.4 mmol/L (3.5-5.1); Sodium Level 138 mmol/L (136-145)
--- NOTE | 2023-02-09 20:52 | EDS_ITS ---
HPI <HEMANT Garza - Last Filed: 02/09/23 21:54> History of Present Illness Chief Complaint: Substance Abuse Narrative Narrative: Patient is a 37-year-old female with history of SVT, alcohol abuse who presents to the emergency department for alcohol detox. Patient presents to the emergency department with her work friends. Patient is a [employer], she has been missing a lot of work, she has been showing up to work slightly intoxicated and she is here with her work friends. Patient states that the alcohol has gotten out of control, her life is suffering and she is here to get clean. Patient does drink a pint of liquor daily. Last drink she states was this morning. She denies any other drugs except for tobacco. PFSH <HEMANT Garza - Last Filed: 02/09/23 21:54> [facility] Medical History Alcohol abuse Anxiety and depression Migraine Multinodular goiter Rheumatoid arthritis Smoker SVT (supraventricular tachycardia) Home Medications multivitamin,de-oxfh-novarven 27 mg-0.4 mg tablet 1 tab PO DAILY supplement 01/29/14 [History Last Taken 06/16/22] hydroxychloroquine 200 mg tablet (Plaquenil) 200 mg PO BID RA 12/28/17 [History Last Taken 06/16/22] loratadine 10 mg tablet (Claritin) 10 mg PO BID allergies 12/28/17 [History Last Taken 06/16/22] omeprazole 40 mg capsule,delayed release 40 mg PO DAILY GERD 11/19/21 [History Last Taken 06/16/22] etodolac 500 mg tablet 500 mg PO BID 11/24/22 [History Last Taken Unknown] gabapentin 300 mg capsule 300 mg PO BID 11/24/22 [History Last Taken Unknown] lorazepam 0.5 mg tablet (Ativan) 0.5 mg PO TID PRN anxiety 11/24/22 [History Last Taken Unknown] ondansetron 4 mg disintegrating tablet 4 mg PO Q8H PRN nausea and vomiting #20 tabs 11/24/22 [Rx Last Taken Unknown] ursodiol 250 mg tablet 250 mg PO BID #60 tabs 01/09/23 [Rx Last Taken Unknown] Allergy/AdvReac Type Severity Reaction Status Date / Time duloxetine [From Cymbalta] Allergy Severe seizure Verified 02/09/23 19:35 Family History (Updated 02/09/23 @ 21:[address] Charles Brady MD) Other Cancer Parkinsons disease Surgical History History of carpal tunnel surgery of right wrist Previous section Social History Smoking Status: Current every day smoker tobacco type: cigarettes alcohol intake: former substance use type: marijuana ROS <HEMANT Garza - Last Filed: 02/09/23 21:54> ROS ED ROS Narrative Constitutional: Negative for fever, chills, weight loss, weakness Eyes: Negative for vision loss, vision change, double vision ENT: Negative for any sore throat, ear pain, congestion Cardiovascular: Negative for any chest pain, tightness, palpitations Respiratory: Negative for any cough, sputum production, hemoptysis, dyspnea, dyspnea on exertion, orthopnea Gastrointestinal: Negative for any abdominal pain, nausea, vomiting, diarrhea, constipation, blood in stool, blood in vomit : Negative for any urinary frequency, dysuria, retention, blood in urine Muscle skeletal: Negative for any muscle joint pain, stiffness, myalgias, arthralgias, neck pain, back pain Neurological: Negative for any headache, syncope, numbness or tingling, dizziness Skin: Negative for any rashes, lumps, itching, abrasions, lacerations Psychiatric: Negative for any depression, anxiety, stress, suicidal ideation, homicidal ideation Hematologic: Negative for any easy bruising, excessive bruising, easy bleeding Allergies: Negative for any eczema, hives, rash EXAM <HEMANT Garza - Last Filed: 02/09/23 21:54> Physical Exam Narrative Exam Narrative: Vital signs reviewed. Patient is alert and orient x3. Patient is obviously intoxicated. Strong smell of alcohol. HEET: Head normocephalic atraumatic, TMs clear bilaterally. Posterior pharynx is clear, moist mucous membranes. Nares clear bilaterally. Pupils are equal round and reactive however they are slow to respond, sluggish. Neck: Supple with no lymphadenopathy or tenderness. No signs of meningismus, negative jolt sign. Cardiac: Tachycardic rate rhythm no murmurs gallops or rubs, equal peripheral pulses bilaterally. Respiratory: Lungs clear to auscultation bilaterally. No chest tenderness. Abdomen: Soft, nontender, nondistended. No abdominal bruit or pulsatile masses. No hepatosplenomegaly Extremities: No peripheral edema, no signs of gross trauma or deformity. Active full range of motion of all extremities. Neuro: Cranial nerves II through XII intact, no focal neurological deficits. Skin: Clean dry and intact with no rash, purpura, petechiae, vesicles or pustules. Backs/flank: No CVA tenderness, no midline spinal tenderness, no deformity. Psych: Normal mood and affect. No SI, HI or acute psychosis. Const Vital Signs: 02/09/23 19:35 Temperature 97 F L Temperature Source Temporal Pulse Rate 119 H Respiratory Rate 16 Blood Pressure 151/108 H Blood Pressure Mean 122 Pulse Ox 98 Positive well nourished and well developed General Appearance ED: well developed <Dr. Handy Mcclellan DO - Last Filed: 02/09/23 23:02> Physical Exam Const Vital Signs: 02/09/23 19:35 Temperature 97 F L Temperature Source Temporal Pulse Rate 119 H Respiratory Rate 16 Blood Pressure 151/108 H Blood Pressure Mean 122 Pulse Ox 98 MDM <HEMANT Garza - Last Filed: 02/09/23 21:54> [facility] Lab Data Labs: Laboratory Results - last 24 hr 02/09/23 02/09/23 19:50 20:40 WBC 6.1 RBC 4.35 Hgb 15.4 H Hct 43.9 MCV 100.9 H MCH 35.4 H MCHC 35.1 RDW Std Deviation 48.0 H RDW Coeff of Rebeka 12.8 Plt Count 129 L MPV 11.0 Immature Gran % (Auto) 0.200 Neut % (Auto) 33.6 L Lymph % (Auto) 57.4 H Hinds % (Auto) 7.0 Eos % (Auto) 0.5 Baso % (Auto) 1.3 H Absolute Neuts (auto) 2.1 Absolute Lymphs (auto) 3.51 Nucleated RBC % 0 Sodium 138 Potassium 3.4 L Chloride 102 Carbon Dioxide 23.0 Anion Gap 13 BUN 7 Creatinine 0.55 Estim Creat Clear Calc 107.73 Est GFR (MDRD) Af Amer 162 Est GFR (MDRD) Non-Af 134 BUN/Creatinine Ratio 12.8 Glucose 89 Calcium 8.8 Serum , Qual NEGATIVE Urine Opiates Screen NEGATIVE Urine Methadone Screen NEGATIVE Ur Barbiturates Screen NEGATIVE Ur Phencyclidine Scrn NEGATIVE Ur Amphetamines Screen NEGATIVE MDMA (Ecstasy) Screen NEGATIVE U Benzodiazepines Scrn NEGATIVE Urine Cocaine Screen NEGATIVE U Cannabinoids Screen NEGATIVE Ur Drug Screen Comment Ethyl Alcohol 500.0 H* Treatment and Re-Evaluation Comments:: Patient appears intoxicated. Patient's last drink was this morning. Patient states that she has been drinking heavily for 7 years. She is here for detox. Patient did receive some basic laboratory values, patient's CBC was unremarkable, chemistries were unremarkable, patient is not . Patient's alcohol level was 500. Patient will be given 1 L of normal saline. Currently waiting on drugs of abuse panel. Patient drug abuse were negative. Patient will be admitted to the hospital <Dr. Handy Mcclellan, DO - Last Filed: 02/09/23 23:02> [facility] Lab Data Labs: Laboratory Results - last 24 hr 02/09/23 02/09/23 19:50 20:40 WBC 6.1 RBC 4.35 Hgb 15.4 H Hct 43.9 MCV 100.9 H MCH 35.4 H MCHC 35.1 RDW Std Deviation 48.0 H RDW Coeff of Rebeka 12.8 Plt Count 129 L MPV 11.0 Immature Gran % (Auto) 0.200 Neut % (Auto) 33.6 L Lymph % (Auto) 57.4 H Hinds % (Auto) 7.0 Eos % (Auto) 0.5 Baso % (Auto) 1.3 H Absolute Neuts (auto) 2.1 Absolute Lymphs (auto) 3.51 Nucleated RBC % 0 Sodium 138 Potassium 3.4 L Chloride 102 Carbon Dioxide 23.0 Anion Gap 13 BUN 7 Creatinine 0.55 Estim Creat Clear Calc 107.73 Est GFR (MDRD) Af Amer 162 Est GFR (MDRD) Non-Af 134 BUN/Creatinine Ratio 12.8 Glucose 89 Calcium 8.8 Serum , Qual NEGATIVE Urine Opiates Screen NEGATIVE Urine Methadone Screen NEGATIVE Ur Barbiturates Screen NEGATIVE Ur Phencyclidine Scrn NEGATIVE Ur Amphetamines Screen NEGATIVE MDMA (Ecstasy) Screen NEGATIVE U Benzodiazepines Scrn NEGATIVE Urine Cocaine Screen NEGATIVE U Cannabinoids Screen NEGATIVE Ur Drug Screen Comment Ethyl Alcohol 500.0 H* Treatment and Re-Evaluation :: ED attending note: I evaluated the patient in conjunction with the CHERYL. I agree with his/her statements and above findings. I have personally performed a face to face assessment of the patient and have reviewed the CHERYL Note. I performed a substantive portion of the visit including all aspects of the following. I personally saw the patient performed chart review, physical exam, reviewed labs, imaging (if obtained), and formulated a treatment and management plan. Brief history: 37-year-old female with concern for alcohol abuse Exam: Nursing triage notes reviewed, Vital signs reviewed Constitutional: please see mdm HENT: MMM Eyes: Pupils equal round and reactive to light, Extraocular muscles intact Neck: No stridor, no JVD, full neck ROM Lungs: Clear to auscultation, No wheezing or rales. No increased work of breathing, no conversational dyspnea, no accessory muscle use, no nasal flaring. No respiratory distress noted Extremities: No edema Neuro: No focal neurological deficits, cranial nerves II through XII intact, 5/5 strength in all extremities. Intact sensation to light touch in all extremities, 2+ reflexes bilateral patella dens. Normal gait. No ataxia. MDM/plan: Chief Complaint: Alcohol withdrawal External records reviewed: Last ED visit for hypokalemia in June 2022 Factors affecting care: Alcohol abuse Social determinants of health: Alcohol abuse History obtained from others: Patient's significant other MDM narrative: Patient was initially hypertensive, tachycardic otherwise hemodynamically stable. Patient was acutely intoxicated. She is a candidate for alcohol detoxification. Will obtain medical clearance labs. Give the patient thiamine, Ativan and phenobarbital to prevent early alcohol withdrawal. Shared decision making: I will have a discussion with the patient and or visitors regarding risk/ benefits of further testing or admission. They will be made aware of of the risk/benefits inherent in this decision they will be given the opportunity to voice understanding. Consults: Internal medicine Comments:: Patient appears intoxicated. Patient's last drink was this morning. Patient states that she has been drinking heavily for 7 years. She is here for detox. Patient did receive some basic laboratory values, patient's CBC was unremarkable, chemistries were unremarkable, patient is not . Patient's alcohol level was 500. Patient will be given 1 L of normal saline. Currently waiting on drugs of abuse panel. Patient drug abuse were negative. Patient will be admitted to the hospital. Discharge Plan Dx/Rx/DC Orders Clinical Impression: Admitted to alcohol detoxification center, Alcohol abuse Disposition Disposition: Acute Care Hospital [facility] Discharge Date/Time: 02/09/23 22:50
[2023-02-09] MEDS: 0.9% Normal Saline 1,000 ML 1000 ML IV (21:01)
[2023-02-09 21:13] LABS: Amphetamine Urine VISTA NEGATIVE (<1000 ng/mL); Barbiturate Urine VISTA NEGATIVE (< 200 ng/mL); Benzodiazepine Urine VISTA NEGATIVE (< 200 ng/mL); Cocaine Urine VISTA NEGATIVE (< 300 ng/mL); Ecstacy Urine VISTA NEGATIVE (< 500 ng/mL); Methadone Urine VISTA NEGATIVE (< 300 ng/mL); PCP Urine VISTA NEGATIVE (< 25 ng/mL); THC Urine VISTA NEGATIVE (< 50 ng/mL); Vista UDS pH Range 6
--- NOTE | 2023-02-09 21:33 | HP.PCM.HOS_ITS ---
HPI - General General Date of Admission: 02/09/23 Date of Service: 02/09/23 Chief Complaint: Desire for alcohol withdrawal HPI Narrative FLORENCIA REMY, is a 37 F with a significant history of SVT; tobacco abuse and alcoholism who presents emergency department for help with alcohol detoxification. Last time patient drank was about 2 hours before presentation. She drinks about a pint of vodka every day. Because of drinking she has been m issing her work. 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 She reports the beginning of withdrawal symptoms of shakiness. Patient reports anxiety. Reportedly she was crying while in the ED room. [facility], [facility] Medical History Alcohol abuse Anxiety and depression Migraine Multinodular goiter Rheumatoid arthritis Smoker SVT (supraventricular tachycardia) Home Medications multivitamin,vp-piqc-nveklzey 27 mg-0.4 mg tablet 1 tab PO DAILY supplement 01/29/14 [History Last Taken 06/16/22] hydroxychloroquine 200 mg tablet (Plaquenil) 200 mg PO BID RA 12/28/17 [History Last Taken 06/16/22] loratadine 10 mg tablet (Claritin) 10 mg PO BID allergies 12/28/17 [History Last Taken 06/16/22] omeprazole 40 mg capsule,delayed release 40 mg PO DAILY GERD 11/19/21 [History Last Taken 06/16/22] etodolac 500 mg tablet 500 mg PO BID 11/24/22 [History Last Taken Unknown] gabapentin 300 mg capsule 300 mg PO BID 11/24/22 [History Last Taken Unknown] lorazepam 0.5 mg tablet (Ativan) 0.5 mg PO TID PRN anxiety 11/24/22 [History Last Taken Unknown] ondansetron 4 mg disintegrating tablet 4 mg PO Q8H PRN nausea and vomiting #20 tabs 11/24/22 [Rx Last Taken Unknown] ursodiol 250 mg tablet 250 mg PO BID #60 tabs 01/09/23 [Rx Last Taken Unknown] Allergy/AdvReac Type Severity Reaction Status Date / Time duloxetine [From Cymbalta] Allergy Severe seizure Verified 02/09/23 19:35 Family History Other Cancer Parkinsons disease Surgical History History of carpal tunnel surgery of right wrist Previous section Social History Smoking Status: Heavy Smoker (>10/day) alcohol intake: former substance use type: marijuana ROS ROS Narrative Pertinent positives and pertinent negatives as noted in HPI. All other systems were reviewed and are negative Vital Signs Vital Signs Vital Signs: 02/09/23 19:35 Temperature 97 F L Temperature Source Temporal Pulse Rate 119 H Respiratory Rate 16 Blood Pressure 151/108 H Blood Pressure Mean 122 Pulse Ox 98 Weight Weight: 71.033 kg Body Mass Index (BMI) 29.5 Physical Exam Narrative Physical exam: General: Well-nourished, well-developed. Head: Normocephalic, atraumatic, no tenderness Eyes: Vision is grossly intact. EOMI ENT, no trauma, moist mucous membranes, no rhinorrhea Neck: Nontender, No thyromegaly. CVS: Regular rate and rhythm. S1-S2 present. No murmur, gallop or rub. Respiratory : clear to auscultation bilaterally, chest wall nontender Abdomen: Soft, nontender, nondistended, normal bowel sounds, no masses : Deferred Back: Nontender, no CVA tenderness, no midline spinal tenderness, deformities, step-offs Extremities: Nontender full range of motion, no trauma Skin: Normal color, no trauma, abrasions Neuro: Alert, oriented, cranial nerves II through XII grossly intact. Psychiatry: Normal mood. Normal affect. Not depressed. Not anxious. Results Lab / Micro Data 02/09/23 19:50 02/09/23 19:50 Labs: Laboratory Results - last 24 hr 02/09/23 19:50: WBC 6.1, RBC 4.35, Hgb 15.4 H, Hct 43.9, MCV 100.9 H, MCH 35.4 H , MCHC 35.1, RDW Std Deviation 48.0 H, RDW Coeff of Rebeka 12.8, Plt Count 129 L, MPV 11.0, Immature Gran % (Auto) 0.200, Neut % (Auto) 33.6 L, Lymph % (Auto) 57.4 H, [place]iba % (Auto) 7.0, Eos % (Auto) 0.5, Baso % (Auto) 1.3 H, Absolute Neuts (auto) 2.1, Absolute Lymphs (auto) 3.51, Nucleated RBC % 0, Sodium 138, Potassium 3.4 L, Chloride 102, Carbon Dioxide 23.0, Anion Gap 13, BUN 7, Creatinine 0.55, Estim Creat Clear Calc 107.73, Est GFR (MDRD) Af Amer 162, Est GFR (MDRD) Non-Af 134, BUN/Creatinine Ratio 12.8, Glucose 89, Calcium 8.8, Serum , Qual NEGATIVE, Ethyl Alcohol 500.0 H* 02/09/23 20:40: Urine Opiates Screen NEGATIVE, Urine Methadone Screen NEGATIVE, Ur Barbiturates Screen NEGATIVE, Ur Phencyclidine Scrn NEGATIVE, Ur Amphetamines Screen NEGATIVE, MDMA (Ecstasy) Screen NEGATIVE, U Benzodiazepines Scrn NEGATIVE, Urine Cocaine Screen NEGATIVE, U Cannabinoids Screen NEGATIVE, Ur Drug Screen Comment Assessment & Plan Assessment/Plan (1) Desire for detoxification: (2) Admitted to alcohol detoxification center: PLAN: Plan Alcohol dependence and desire for detoxification Patient be started on phenobarbital and other adjunctive medications: Gabapentin as needed; dicyclomine as needed; Vistaril as needed; Imodium as needed; trazodone as needed; Zofran as needed; scheduled thiamine; and schedule folic acid. Monitor CIWA score Tobacco abuse Counseled Nicotine patch prescribed. DVT prophylaxis Low risk Encourage to ambulate Time spent in the patient's overall evaluation,decision-making process, review of diagnostic data, adjustment of management, discussion with other providers, nursing nursing and ancillary staff involved in patient's care documentation, 45 minutes. Charges/Coding Visit Charges Inpatient E&M: 42210 Init Hosp L2
[2023-02-09 22:05] VITALS: BP 132/102; PULSE 87; RESP 17; TEMP 36.8; O2SAT 100
[2023-02-09] MEDS: Phenobarbital 32.4 MG Tablet 97.2 MG PO (22:18)
[2023-02-09] MEDS: LORazepam 2 MG/ML Syringe IV (22:18)
[2023-02-09 22:56] VITALS: PULSE 105; BMI 29.9
[2023-02-09 23:02] VITALS: BP 119/82; PULSE 105; RESP 15; TEMP 36.9; O2SAT 100
[2023-02-09] MEDS: traZODone 100 MG Tablet PO (23:53)
[2023-02-09] MEDS: Gabapentin 300 MG Capsule PO (23:53)
[2023-02-10] VITALS (7 sets, daily range): BP systolic 111–155; BP diastolic 60–92; PULSE 87–127; RESP 16–18; TEMP 36.6–37.1; O2SAT 94–98
[2023-02-10] MEDS: Phenobarbital 32.4 MG Tablet PO ×6 (02:51→22:20)
[2023-02-10] MEDS: Ondansetron 8 MG Tablet PO ×2 (06:44→17:44)
[2023-02-10] MEDS: hydrOXYzine PAM 25 MG Capsule 50 MG PO ×3 (06:44→22:19)
[2023-02-10 09:15] LABS: T4 Free Direct 0.85 ng/dL (0.76-1.46); Thyroid Stim Hormone (TSH) 2.18 uIU/mL (0.358-3.74)
[2023-02-10] MEDS: Potassium Chloride Oral Tablet 20 MEQ 40 MEQ PO (09:35)
[2023-02-10] MEDS: Pantoprazole Sodium 40 MG Tablet PO (09:36)
[2023-02-10] MEDS: Hydroxychloroquine 200 MG Tablet PO ×2 (09:36→17:45)
[2023-02-10] MEDS: Folic Acid 1 MG Tablet PO (09:36)
[2023-02-10] MEDS: Thiamine Hydrochloride 100 MG Tablet PO (09:36)
[2023-02-10] MEDS: Ensure Plus High Protein 120 ML LIQUID PO (09:36)
[2023-02-10] MEDS: Loratadine 10 MG Tablet PO ×2 (09:36→22:19)
[2023-02-10] MEDS: Ursodiol 250 MG Tablet PO ×2 (09:36→17:46)
[2023-02-10] MEDS: Gabapentin 300 MG Capsule PO ×2 (09:48→17:44)
[2023-02-10 10:33] LABS: Mucous, Urine 0 SEEN /hpf (<or=2+); Red Blood Cells-Urine 0 SEEN /hpf (0-5)
[2023-02-10 10:36] LABS: Color, Urine Yellow (Yellow); Glucose, Dipstick Normal (Normal); Ketone-Dipstick 5 mg/dl (Negative); Leukocyte Esterase-Dipstick 25 /ul (Negative); Nitrite-Dipstick Negative (Negative); Occult Blood-Urine 10 /ul (Negative); Protein-Dipstick 30 mg/dl (Negative); Urine Clarity Clear (Clear); Urine Urobilinogen 8 mg/dl (Normal); Urine pH 6.5 (5.0 - 8.0)
[2023-02-10 10:45] LABS: Urine Bilirubin Dipstick 1 mg/dL (Negative)
[2023-02-10 10:57] LABS: Squamous Epithelial Cells - UA 0-5 SEEN /hpf (5-10); White Blood Cells 0-5 SEEN /hpf (0-5)
[2023-02-10 10:58] LABS: Amorphous Sediment 1+; Bacteria 1+ /hpf (None Seen)
[2023-02-10 11:28] LABS: AST(SGOT) 294 U/L (15-37); Alanine Aminotransfer ALT/SGPT 285 U/L (13-56); Albumin, Serum 3.6 g/dL (3.2-5.0); Alkaline Phosphatase 114 U/L (45-117); Bilirubin, Direct 0.61 mg/dL (0.00-0.30); Globulin 3.3 g/dL (2.2-4.2); Protein, Total 6.9 g/dL (6.4-8.2)
--- NOTE | 2023-02-10 11:44 | ADDICTION ---
This health technical writer met with PT to conduct ASAM, MSE, AUDIT assessments and to plan for d/c. PT A+Ox4 and participated actively. All assessments completed, and d/c plan placed in PT's chart. PT plans to f/u with individual counselor at [facility] as well as Intensive outpatient treatment services. PT did not indicate a need for transportation post d/c from [facility].
--- NOTE | 2023-02-10 17:34 | PN.HOSP_ITS ---
Subjective Subjective Patient feels like her urine sound color and smell some and she also has some yeast in folds Objective Data Objective Data Vital Signs: Vital Signs Temp Pulse Resp BP Pulse Ox O2 Del Method 98.7 F 87 18 121/60 H 95 Room Air 02/10/23 13:58 02/10/23 13:58 02/10/23 13:58 02/10/23 13:58 02/10/23 13:58 02/10/23 13:58 Oxygen Delivery Method Room Air Weight: 71.8 kg Body Mass Index (BMI) 29.9 Intake & Output: Intake and Output for Last 24 Hours 02/08/23 02/09/23 02/10/23 23:59 23:59 23:59 Intake Total 1051 / 1051 Balance 1051 / 1051 Lab / Micro Data 02/09/23 19:50 02/09/23 19:50 Labs: Laboratory Results - last 24 hr 02/09/23 19:50: WBC 6.1, RBC 4.35, Hgb 15.4 H, Hct 43.9, MCV 100.9 H, MCH 35.4 H , MCHC 35.1, RDW Std Deviation 48.0 H, RDW Coeff of Rebeka 12.8, Plt Count 129 L, MPV 11.0, Immature Gran % (Auto) 0.200, Neut % (Auto) 33.6 L, Lymph % (Auto) 57.4 H, Mayes % (Auto) 7.0, Eos % (Auto) 0.5, Baso % (Auto) 1.3 H, Absolute Neuts (auto) 2.1, Absolute Lymphs (auto) 3.51, Nucleated RBC % 0, Sodium 138, Potassium 3.4 L, Chloride 102, Carbon Dioxide 23.0, Anion Gap 13, BUN 7, Creatinine 0.55, Estim Creat Clear Calc 107.73, Est GFR (MDRD) Af Amer 162, Est GFR (MDRD) Non-Af 134, BUN/Creatinine Ratio 12.8, Glucose 89, Calcium 8.8, TSH 2.18, Free T4 0.85, Serum , Qual NEGATIVE, Ethyl Alcohol 500.0 H* 02/09/23 20:40: Urine Opiates Screen NEGATIVE, Urine Methadone Screen NEGATIVE, Ur Barbiturates Screen NEGATIVE, Ur Phencyclidine Scrn NEGATIVE, Ur Amphetamines Screen NEGATIVE, MDMA (Ecstasy) Screen NEGATIVE, U Benzodiazepines Scrn NEGATIVE, Urine Cocaine Screen NEGATIVE, U Cannabinoids Screen NEGATIVE, Ur Drug Screen Comment 02/10/23 10:00: Urine Color Yellow, Urine Clarity Clear, Urine pH 6.5, Ur Specific [place] 1.010, Urine Protein 30 H, Urine Glucose (UA) Normal, Urine Ketones 5 H, Urine Occult Blood 10 H, Urine Nitrite Negative, Urine Bilirubin 1 H, Urine Urobilinogen 8 H, Ur Leukocyte Esterase 25 H, Urine RBC 0 SEEN, Urine WBC 0-5 SEEN, Ur Squamous Epith Cells 0-5 SEEN, Amorphous Sediment 1+, Urine Bacteria 1+, Urine Mucus 0 SEEN 02/10/23 10:28: Total Bilirubin 1.00, Direct Bilirubin 0.61 H, AST 294 H, ALT 285 H, Alkaline Phosphatase 114, Total Protein 6.9, Albumin 3.6, Globulin 3.3 Physical Exam Narrative General: Alert, oriented, no apparent distress HEENT: Atraumatic, normocephalic Eyes: Anicteric, normal conjunctiva, extraocular movements grossly intact Neck: Supple Respiratory: Clear to auscultation bilaterally, normal respiratory effort Cardiovascular: Regular rate and rhythm GI: Soft, nontender, nondistended Extremities: No edema Musculoskeletal: Moving all extremities Neuro: No overt focal neurological deficits Skin: No rashes appreciated Psych: Cooperative Assessment & Plan Assessment/Plan (1) Desire for detoxification: (2) Admitted to alcohol detoxification center: PLAN: Plan #Alcohol dependence and desire for detoxification Patient be started on phenobarbital and other adjunctive medications: Gabapentin as needed; dicyclomine as needed; Vistaril as needed; Imodium as needed; trazodo ne as needed; Zofran as needed; scheduled thiamine; and schedule folic acid. Monitor CIWA score -/: Continue present management #Transaminitis -Not having abdominal pain, only symptom at present is dark urine, will recheck in the a.m., can consider further work-up and laboratory studies pending a.m. labs #Tobacco abuse Counseled Nicotine patch prescribed. DVT prophylaxis Low risk Encourage to ambulate Charges/Coding Visit Charges Inpatient E&M: 10679 Subs Hosp L1
[2023-02-10] MEDS: traZODone 100 MG Tablet PO (22:19)
[2023-02-10] MEDS: Dicyclomine 10 MG Capsule 20 MG PO (22:20)
[2023-02-11] MEDS: Phenobarbital 32.4 MG Tablet PO ×6 (02:33→21:14)
[2023-02-11 05:19] LABS: AST(SGOT) 263 U/L (15-37); Alanine Aminotransfer ALT/SGPT 265 U/L (13-56); Albumin, Serum 3.5 g/dL (3.2-5.0); Alkaline Phosphatase 112 U/L (45-117); Anion Gap 8 (5-15); BUN 6 mg/dL (7-18); BUN/Creat Ratio 9.8 RATIO (10-20); Calcium,Total 9.3 mg/dL (8.5-10.1); Chloride 100 mmol/L (98-107); Creatinine, Serum 0.61 mg/dL (0.55-1.02); EST Glomerular Filtration Rate 118 mL/min (>60); Est Glom Filt Rate - Afr Amer 143 mL/min (>60); Estimated Creatinine Clearance 97.13 ml/min; Globulin 3.5 g/dL (2.2-4.2); Glucose 106 mg/dL (74-106); Potassium 3.5 mmol/L (3.5-5.1); Sodium Level 136 mmol/L (136-145)
[2023-02-11] MEDS: hydrOXYzine PAM 25 MG Capsule 50 MG PO ×2 (05:19→21:13)
[2023-02-11 06:00] VITALS: BP 123/87; PULSE 112; RESP 18; TEMP 36.8; O2SAT 95
--- NOTE | 2023-02-11 08:07 | PCM.PN.HOSP ---
Subjective Subjective Doing somewhat better today, no new acute complaints, reports today that she did have some abdominal pain yesterday but it is much better Objective Data Objective Data Vital Signs: Vital Signs Temp Pulse Resp BP Pulse Ox O2 Del Method 98.2 F 112 H 18 123/87 H 95 Room Air 02/11/23 06:00 02/11/23 06:00 02/11/23 06:00 02/11/23 06:00 02/11/23 06:00 02/11/23 06:00 Oxygen Delivery Method Room Air Weight: 71.8 kg Body Mass Index (BMI) 29.9 Intake & Output: Intake and Output for Last 24 Hours 02/09/23 02/10/23 02/11/23 23:59 23:59 23:59 Intake Total 1051 / 1051 Balance 1051 / 1051 Lab / Micro Data 02/09/23 19:50 02/11/23 04:10 Labs: Laboratory Results - last 24 hr 02/09/23 19:50: TSH 2.18, Free T4 0.85 02/10/23 10:00: Urine Color Yellow, Urine Clarity Clear, Urine pH 6.5, Ur Specific [place] 1.010, Urine Protein 30 H, Urine Glucose (UA) Normal, Urine Ketones 5 H, Urine Occult Blood 10 H, Urine Nitrite Negative, Urine Bilirubin 1 H, Urine Urobilinogen 8 H, Ur Leukocyte Esterase 25 H, Urine RBC 0 SEEN, Urine WBC 0-5 SEEN, Ur Squamous Epith Cells 0-5 SEEN, Amorphous Sediment 1+, Urine Bacteria 1+, Urine Mucus 0 SEEN 02/10/23 10:28: Total Bilirubin 1.00, Direct Bilirubin 0.61 H, AST 294 H, ALT 285 H, Alkaline Phosphatase 114, Total Protein 6.9, Albumin 3.6, Globulin 3.3 02/11/23 04:10: Sodium 136, Potassium 3.5, Chloride 100, Carbon Dioxide 28.0, Anion Gap 8, BUN 6 L, Creatinine 0.61, Estim Creat Clear Calc 97.13, Est GFR (MDRD) Af Amer 143, Est GFR (MDRD) Non-Af 118, BUN/Creatinine Ratio 9.8 L, Glucose 106, Calcium 9.3, Total Bilirubin 1.40 H, AST 263 H, ALT 265 H, Alkaline Phosphatase 112, Total Protein 7.0, Albumin 3.5, Globulin 3.5, Albumin/Globulin Ratio 1.0 Physical Exam Narrative General: Alert, oriented, no apparent distress HEENT: Atraumatic, normocephalic Eyes: Anicteric, normal conjunctiva, extraocular movements grossly intact Neck: Supple Respiratory: Clear to auscultation bilaterally, normal respiratory effort Cardiovascular: Regular rhythm, mildly tachycardic GI: Soft, nontender, nondistended Extremities: No edema Musculoskeletal: Moving all extremities Neuro: No overt focal neurological deficits Skin: No rashes appreciated Psych: Cooperative Assessment & Plan Assessment/Plan (1) Desire for detoxification: (2) Admitted to alcohol detoxification center: PLAN: Plan #Alcohol dependence and desire for detoxification Patient be started on phenobarbital and other adjunctive medications: Gabapentin as needed; dicyclomine as needed; Vistaril as needed; Imodium as needed; trazodone as needed; Zofran as needed; scheduled thiamine; and schedule folic acid. Monitor CIWA score -02/10: Continue present management -02/11: On phenobarb taper, plans for outpatient follow-up with [facility] #Transaminitis -Not having abdominal pain, only symptom at present is dark urine, will recheck in the a.m., can consider further work-up and laboratory studies pending a.m. labs -02/11: Downtrending, continue current management #Tachycardia -Reportedly has a history of this and was supposed to previously have an ablation but has not done this yet -Suspect there may be component of withdrawal and possibly dehydration, will give some fluids, continue phenobarb #Mesha under pannus -Nystatin #Foul-smelling urine -Does not seem suggestive of UTI, does have bili which is likely the reason for the changes, liver function improving #Tobacco abuse Counseled Nicotine patch prescribed. DVT prophylaxis Low risk Encourage to ambulate Time spent in the patient's overall evaluation,decision-making process, review of diagnostic data, adjustment of management, discussion with other providers, nursing nursing and ancillary staff involved in patient's care documentation, 36 minutes Charges/Coding Visit Charges Inpatient E&M: 48320 Subs Hosp L2
[2023-02-11] MEDS: Hydroxychloroquine 200 MG Tablet PO ×2 (09:46→17:15)
[2023-02-11] MEDS: Ursodiol 250 MG Tablet PO ×2 (09:46→17:15)
[2023-02-11] MEDS: Folic Acid 1 MG Tablet PO (09:46)
[2023-02-11] MEDS: Pantoprazole Sodium 40 MG Tablet PO (09:47)
[2023-02-11] MEDS: Loratadine 10 MG Tablet PO ×2 (09:47→21:13)
[2023-02-11] MEDS: Thiamine Hydrochloride 100 MG Tablet PO (09:48)
[2023-02-11] MEDS: Ondansetron 8 MG Tablet PO (09:51)
[2023-02-11] MEDS: 0.9% Saline Lock 10 ML Syringe IV (09:56)
[2023-02-11 10:00] VITALS: PULSE 110
[2023-02-11 12:00] VITALS: BP 122/77; PULSE 62; RESP 18; TEMP 36.7; O2SAT 96
--- NOTE | 2023-02-11 17:09 | NURSING ---
pt agreeable for nurse to give information to her sister MANUEL REMY @[phone]
[2023-02-11 20:00] VITALS: BP 118/85; PULSE 88; RESP 16; TEMP 36.7; O2SAT 98
[2023-02-12] VITALS (7 sets, daily range): BP systolic 110–170; BP diastolic 63–111; PULSE 74–87; RESP 16–18; TEMP 36.6–36.9; O2SAT 97–100
[2023-02-12] MEDS: traZODone 100 MG Tablet PO ×2 (01:30→23:41)
[2023-02-12] MEDS: Phenobarbital 32.4 MG Tablet PO ×5 (01:30→23:33)
[2023-02-12] MEDS: hydrOXYzine PAM 25 MG Capsule 50 MG PO ×3 (05:14→23:39)
[2023-02-12 07:14] LABS: AST(SGOT) 145 U/L (15-37); Alanine Aminotransfer ALT/SGPT 209 U/L (13-56); Albumin, Serum 3.4 g/dL (3.2-5.0); Alkaline Phosphatase 101 U/L (45-117); Anion Gap 5 (5-15); BUN 6 mg/dL (7-18); BUN/Creat Ratio 11.7 RATIO (10-20); Calcium,Total 9.4 mg/dL (8.5-10.1); Chloride 103 mmol/L (98-107); Creatinine, Serum 0.51 mg/dL (0.55-1.02); EST Glomerular Filtration Rate 145 mL/min (>60); Est Glom Filt Rate - Afr Amer 176 mL/min (>60); Estimated Creatinine Clearance 116.18 ml/min; Globulin 3.3 g/dL (2.2-4.2); Glucose 80 mg/dL (74-106); Potassium 3.3 mmol/L (3.5-5.1); Protein, Total 6.7 g/dL (6.4-8.2); Sodium Level 136 mmol/L (136-145)
[2023-02-12] MEDS: Gabapentin 300 MG Capsule PO ×2 (07:38→21:29)
[2023-02-12] MEDS: Folic Acid 1 MG Tablet PO (07:38)
[2023-02-12] MEDS: Hydroxychloroquine 200 MG Tablet PO ×2 (07:39→17:16)
[2023-02-12] MEDS: Ursodiol 250 MG Tablet PO ×2 (07:39→17:16)
[2023-02-12] MEDS: Thiamine Hydrochloride 100 MG Tablet PO (07:39)
--- NOTE | 2023-02-12 10:04 | PCM.PN.HOSP ---
Subjective Subjective Note no pain, doing much better from a withdrawal standpoint, discussed again timeline and symptoms, patient agreeable to DC tomorrow afternoon if doing well Objective Data Objective Data Vital Signs: Vital Signs Temp Pulse Resp BP Pulse Ox O2 Del Method 98.1 F 84 16 120/102 H 100 Room Air 02/12/23 07:25 02/12/23 07:25 02/12/23 07:25 02/12/23 07:25 02/12/23 07:25 02/12/23 07:25 Oxygen Delivery Method Room Air Weight: 71.8 kg Body Mass Index (BMI) 29.9 Intake & Output: Intake and Output for Last 24 Hours 02/10/23 02/11/23 02/12/23 23:59 23:59 23:59 Intake Total 500 / 500 Balance 500 / 500 Lab / Micro Data 02/09/23 19:50 02/12/23 05:05 Labs: Laboratory Results - last 24 hr 02/12/23 05:05: Sodium 136, Potassium 3.3 L, Chloride 103, Carbon Dioxide 28.0, Anion Gap 5, BUN 6 L, Creatinine 0.51 L, Estim Creat Clear Calc 116.18, Est GFR (MDRD) Af Amer 176, Est GFR (MDRD) Non-Af 145, BUN/Creatinine Ratio 11.7, Glucose 80, Calcium 9.4, Total Bilirubin 1.10 H, AST 145 H, ALT 209 H, Alkaline Phosphatase 101, Total Protein 6.7, Albumin 3.4, Globulin 3.3, Albumin/Globulin Ratio 1.0 Micro: Microbiology 02/10/23 10:00 Urine, Clean Catch Urine Culture - Final Escherichia coli Physical Exam Narrative General: Alert, oriented, no apparent distress HEENT: Atraumatic, normocephalic Eyes: Anicteric, normal conjunctiva, extraocular movements grossly intact Neck: Supple Respiratory: Clear to auscultation bilaterally, normal respiratory effort Cardiovascular: Regular rhythm, mildly tachycardic GI: Soft, nontender, nondistended Extremities: No edema Musculoskeletal: Moving all extremities Neuro: No overt focal neurological deficits Skin: No rashes appreciated Psych: Cooperative Assessment & Plan Assessment/Plan (1) Desire for detoxification: (2) Admitted to alcohol detoxification center: PLAN: Plan #Alcohol dependence and desire for detoxification Patient be started on phenobarbital and other adjunctive medications: Gabapentin as needed; dicyclomine as needed; Vistaril as needed; Imodium as needed; trazodone as needed; Zofran as needed; scheduled thiamine; and schedule folic acid. Monitor CIWA score -02/10: Continue present management -02/11: On phenobarb taper, plans for outpatient follow-up with [facility] -02/12: Patient to stepdown on taper again tomorrow, suspect she will be stable for discharge tomorrow #Transaminitis -Not having abdominal pain, only symptom at present is dark urine, will recheck in the a.m., can consider further work-up and laboratory studies pending a.m. labs -02/11: Downtrending, continue current management -02/12: Continues to improve, follow-up with PCP on discharge #Tachycardia -Reportedly has a history of this and was supposed to previously have an ablation but has not done this yet -Suspect there may be component of withdrawal and possibly dehydration, will give some fluids, continue phenobarb -02/12: Did improve with some fluids and the phenobarb taper #Mesha under pannus -Nystatin #Foul-smelling urine -Does not seem suggestive of UTI, does have bili which is likely the reason for the changes, liver function improving -02/12: Urine culture with 25-50,000 colonies however initial UA not consistent with infection so do not think this needs to be treated given initial complaint was foul-smelling urine and no frequency or burning #Tobacco abuse Counseled Nicotine patch prescribed. DVT prophylaxis Low risk Encourage to ambulate Time spent in the patient's overall evaluation,decision-making process, review of diagnostic data, adjustment of management, discussion with other providers, nursing nursing and ancillary staff involved in patient's care documentation, 36 minutes Charges/Coding Visit Charges Inpatient E&M: 94122 Subs Hosp L2
[2023-02-12] MEDS: Potassium Chloride Oral Tablet 20 MEQ 40 MEQ PO (10:12)
[2023-02-12] MEDS: Loratadine 10 MG Tablet PO ×2 (10:18→21:27)
[2023-02-12] MEDS: Pantoprazole Sodium 40 MG Tablet PO (10:18)
[2023-02-12] MEDS: Ondansetron 8 MG Tablet PO (20:10)
[2023-02-13] MEDS: hydrOXYzine PAM 25 MG Capsule 50 MG PO ×4 (03:40→17:58)
[2023-02-13 06:28] VITALS: BP 156/99; PULSE 87; RESP 16; TEMP 36.6; O2SAT 98
[2023-02-13] MEDS: Phenobarbital 32.4 MG Tablet PO ×3 (06:31→17:58)
[2023-02-13] MEDS: Gabapentin 300 MG Capsule PO ×3 (06:31→22:48)
[2023-02-13 08:46] VITALS: BP 134/104; PULSE 88; RESP 18; TEMP 36.7; O2SAT 97
[2023-02-13] MEDS: Folic Acid 1 MG Tablet PO (09:02)
[2023-02-13] MEDS: Thiamine Hydrochloride 100 MG Tablet PO (09:02)
[2023-02-13] MEDS: Loratadine 10 MG Tablet PO ×2 (09:02→21:23)
[2023-02-13] MEDS: Pantoprazole Sodium 40 MG Tablet PO (09:02)
[2023-02-13] MEDS: Hydroxychloroquine 200 MG Tablet PO ×2 (09:03→17:58)
[2023-02-13] MEDS: Ursodiol 250 MG Tablet PO ×2 (09:03→17:58)
--- NOTE | 2023-02-13 12:00 | PN.HOSP_ITS ---
Subjective Subjective Doing well, no issues overnight. CIWA score 5 Objective Data Objective Data Vital Signs: Vital Signs Temp Pulse Resp BP Pulse Ox O2 Del Method 98.0 F 88 18 134/104 H 97 Room Air 02/13/23 08:46 02/13/23 08:46 02/13/23 08:46 02/13/23 08:46 02/13/23 08:46 02/13/23 08:46 Oxygen Delivery Method Room Air Weight: 158 lb 4.67 oz Body Mass Index (BMI) 29.9 Intake & Output: Intake and Output for Last 24 Hours 02/12/23 02/13/23 02/14/23 03:59 03:59 03:59 Intake Total 500 / 500 Balance 500 / 500 Lab / Micro Data 02/09/23 19:50 02/12/23 05:05 Micro: Microbiology 02/10/23 10:00 Urine, Clean Catch Urine Culture - Final Escherichia coli Physical Exam Narrative General: Alert, Oriented x3, Cooperative, No apparent distress HEENT: Atraumatic, PERRLA, EOMI, Normocephalic Oral: Moist Mucosa Neck: Supple, No JVD Lungs: Clear to auscultation, Normal air movement, No rhonchi, No wheeze, No rales Cardiovascular: Regular rate, Regular Rhythm, Normal S1, Normal S2, No murmurs Abdomen: Soft, Non Tender, Non-Distended, No Hepato-splenomegaly Extremities: No edema, Capillary Refill Less than 3 Seconds Skin: No rashes, No breakdown Musculoskeletal: No Tenderness to Palpation of Joints or Extremities Neurological: Cranial nerves II-XII grossly intact, Motor Exam 5/5 strength throughout, Sensory exam intact to light touch and pain Psych/Mental Status: Normal Affect, Appropriate Assessment & Plan Assessment/Plan (1) Alcohol abuse: PLAN: Plan 1. Acute alcohol withdrawal requesting detox/transaminitis/tobacco abuse ? She would like to go to inpatient rehab on discharge ? We will have her continue to follow-up with 180 ? Continue with the alcohol withdrawal protocol ? Her elevated LFTs are improving likely related to her alcohol use would recom mend outpatient follow-up ? Discussed tobacco cessation, continue with nicotine patch DVT: Ambulation Charges/Coding Visit Charges Inpatient E&M: 40769 Subs Hosp L2
--- NOTE | 2023-02-13 12:17 | ADDICTION ---
Pt was met with to discuss d/c plan. It was reported that Pt's family (father and sister) were no longer willing to allow Pt to return to father's home, unless and until she complete residential tx. Pt was agreeable to entering residential tx at [facility] in [place] phone #[phone]. Pt's clinical H&P and face sheet were faxed to [facility] A steam setter to call pt for a screening/assessment over the phone today. Pt to be transported by A tomorrow as a direct admit from [facility] on 02/14/23. Pt and nursing staff are aware that pt needs to contact family/friends to have her clothing and hygiene products dropped off at [facility] prior to discharge to detox.
[2023-02-13 14:34] VITALS: BP 123/92; PULSE 84; RESP 18; TEMP 36.6; O2SAT 98
[2023-02-13] MEDS: Dicyclomine 10 MG Capsule 20 MG PO ×2 (14:39→21:23)
[2023-02-13] MEDS: Ondansetron 8 MG Tablet PO ×2 (14:40→22:48)
[2023-02-13 21:11] VITALS: BP 117/79; PULSE 77; RESP 14; TEMP 36.6; O2SAT 97
[2023-02-13] MEDS: traZODone 100 MG Tablet PO (22:48)
[2023-02-13] MEDS: Loperamide 2 MG Capsule PO (22:50)
[2023-02-14] MEDS: Phenobarbital 32.4 MG Tablet PO (00:16)
[2023-02-14 06:39] VITALS: BP 120/88; PULSE 98; RESP 18; TEMP 36.3; O2SAT 100
[2023-02-14] MEDS: Ondansetron 8 MG Tablet PO (06:48)
[2023-02-14] MEDS: Gabapentin 300 MG Capsule PO (06:48)
[2023-02-14] MEDS: Loperamide 2 MG Capsule PO ×2 (06:48→11:08)
--- NOTE | 2023-02-14 08:27 | DCINST_ITS ---
Discharge Instructions Diet Discharge Diet: No restrictions Activity Discharge Activity: Return to Normal Activity Dressing / Incision Call your doctor if you observe: Fever of 101 or Higher, Shortness of breath, Dizziness, Fainting spells, Swelling in the ankles, Chest pain and Increased palpitations (irregular heartbeat) Follow Up Care Test Results: Test results from this visit will be discussed in further detail at your follow- up appointment, if applicable. Discharge Plan Admission Admit Date/Time: 02/09/23 21:27 Attending Provider: Marcell Francisco Primary Care Provider: Richmond Monet Consulting Providers: Charles Brady; Shruthi Awan Discharge Orders/Prescriptions Prescriptions: Continued hydroxychloroquine [Plaquenil] 200 mg tablet 200 mg PO BID loratadine [Claritin] 10 mg tablet 10 mg PO BID omeprazole 40 mg capsule,delayed release(DR/EC) 40 mg PO DAILY etodolac 500 mg tablet 500 mg PO BID lorazepam [Ativan] 0.5 mg tablet 0.5 mg PO TID PRN (Reason: anxiety) ondansetron 4 mg tablet,disintegrating 4 mg PO Q8H PRN (Reason: nausea and vomiting) Qty: 20 0RF gabapentin 300 mg capsule 300 mg PO BID multivitamin,[id number] 1 TABLET tablet 1 tab PO DAILY ursodiol 250 mg tablet 250 mg PO BID Qty: 60 3RF Referrals / Follow Up: Richmond Monet DO [Primary Care Provider] - Disposition Disposition (needs filled in before D/C Order can be placed): Home, Self Care
--- NOTE | 2023-02-14 08:37 | NURSING ---
placed a call to [facility] at [phone] to verify status as pt states has not had her over the phone screening done yet. [facility] staff stated that they did recieve the referral but their emergency medical technician has not been able to review it yet so unable to state if accepted. Also requesting that patient call them for the screening stating it is patient driven, they will not return a call for the screening. Phone number given to primary RN to assist pt with phone access to call for screening.
[2023-02-14] MEDS: Hydroxychloroquine 200 MG Tablet PO (09:58)
[2023-02-14] MEDS: Folic Acid 1 MG Tablet PO (09:58)
[2023-02-14] MEDS: Dicyclomine 10 MG Capsule 20 MG PO (09:58)
[2023-02-14] MEDS: hydrOXYzine PAM 25 MG Capsule 50 MG PO (09:58)
[2023-02-14] MEDS: Loratadine 10 MG Tablet PO (09:58)
[2023-02-14] MEDS: Pantoprazole Sodium 40 MG Tablet PO (09:58)
[2023-02-14] MEDS: Ursodiol 250 MG Tablet PO (09:58)
[2023-02-14] MEDS: Thiamine Hydrochloride 100 MG Tablet PO (09:58)
[2023-02-14 10:01] VITALS: BP 150/99; PULSE 97; RESP 18; O2SAT 100
--- NOTE | 2023-02-14 11:52 | NURSING ---
talked with staff from [facility] aware their regional truck driver will be here in about 1.5-2hrs. unit phone number given as well as instructions to go to main enterance/vallet parking. Pt informed and calling her friend to bring her clothes. primary RN updated
--- NOTE | 2023-02-14 12:34 | DS.PCM_ITS ---
Providers Date of Admission: 02/09/23 Primary Care Physician: Dr. Richmond Monet, DO Reason For Visit: DESIRE FOR ALCOHOL DETOX Diagnosis Discharge Diagnosis (1) Alcohol abuse: Status: Acute Code(s): F10.10 - Alcohol abuse, uncomplicated Medications at Discharge Home Medications multivitamin,[id number]-[id number] 27 mg-0.4 mg tablet 1 tab PO DAILY supplement 01/29/14 hydroxychloroquine 200 mg tablet (Plaquenil) 200 mg PO BID RA 12/28/17 loratadine 10 mg tablet (Claritin) 10 mg PO BID allergies 12/28/17 omeprazole 40 mg capsule,delayed release 40 mg PO DAILY GERD 11/19/21 etodolac 500 mg tablet 500 mg PO BID 11/24/22 gabapentin 300 mg capsule 300 mg PO BID 11/24/22 lorazepam 0.5 mg tablet (Ativan) 0.5 mg PO TID PRN anxiety 11/24/22 ondansetron 4 mg disintegrating tablet 4 mg PO Q8H PRN nausea and vomiting #20 tabs 11/24/22 ursodiol 250 mg tablet 250 mg PO BID #60 tabs 01/09/23 Hospital Course Operations None Procedures None Summary of Care Provided Minutes Spent on Discharge: 32 Hospital Course: Per HPI: FLORENCIA REMY, is a 37 F with a significant history of SVT; tobacco abuse and alcoholism who presents emergency department for help with alcohol detoxification. Last time patient drank was about 2 hours before presentation. She drinks about a pint of vodka every day. Because of drinking she has been missing her work. 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 She reports the beginning of withdrawal symptoms of shakiness. Patient reports anxiety. Reportedly she was crying while in the ED room. Hospital Course: 1. Acute alcohol withdrawal/transaminitis/tobacco abuse?37-year-old female presents to the hospital requesting detox from alcohol. Apparently her family kicked her out of the house because of her drinking and would not take her back. She did complete the alcohol withdrawal protocol and has elected to go to i npatient rehab on discharge. Her transaminitis is improving likely due to alcohol. Discussed with her the plan for discharge today she expressed understanding the risk benefits of going to the rehab facility and would like to go today. Physical Exam Narrative General: Alert, Oriented x3, Cooperative, No apparent distress HEENT: Atraumatic, PERRLA, EOMI, Normocephalic Oral: Moist Mucosa Neck: Supple, No JVD Lungs: Clear to auscultation, Normal air movement, No rhonchi, No wheeze, No rales Cardiovascular: Regular rate, Regular Rhythm, Normal S1, Normal S2, No murmurs Abdomen: Soft, Non Tender, Non-Distended, No Hepato-splenomegaly Extremities: No edema, Capillary Refill Less than 3 Seconds Skin: No rashes, No breakdown Musculoskeletal: No Tenderness to Palpation of Joints or Extremities Neurological: Cranial nerves II-XII grossly intact, Motor Exam 5/5 strength throughout, Sensory exam intact to light touch and pain Psych/Mental Status: Normal Affect, Appropriate Weight / BMI Weight Weight: 158 lb 4.67 oz Body Mass Index (BMI) 29.9 ABG / Lab / Microbiology Data 02/09/23 19:50 02/12/23 05:05 Microbiology: Microbiology 02/10/23 10:00 Urine, Clean Catch Urine Culture - Final Escherichia coli D/C Instructions Discharge Diet: No restrictions Call your doctor if you observe: Fever of 101 or Higher, Shortness of breath, Dizziness, Fainting spells, Swelling in the ankles, Chest pain and Increased palpitations (irregular heartbeat) Meaningful Use Info Meaningful Use Diagnoses (Choose all that apply): None applicable Discharge Plan Admission Admit Date/Time: 02/09/23 21:27 Attending Provider: Marcell Francisco Primary Care Provider: Richmond Monet Consulting Providers: Charles Brady; Shruthi Awan Discharge Orders/Prescriptions Prescriptions: Continued hydroxychloroquine [Plaquenil] 200 mg tablet 200 mg PO BID loratadine [Claritin] 10 mg tablet 10 mg PO BID omeprazole 40 mg capsule,delayed release(DR/EC) 40 mg PO DAILY etodolac 500 mg tablet 500 mg PO BID lorazepam [Ativan] 0.5 mg tablet 0.5 mg PO TID PRN (Reason: anxiety) ondansetron 4 mg tablet,disintegrating 4 mg PO Q8H PRN (Reason: nausea and vomiting) Qty: 20 0RF gabapentin 300 mg capsule 300 mg PO BID multivitamin,[id number]-svsm-[id number] 1 TABLET tablet 1 tab PO DAILY ursodiol 250 mg tablet 250 mg PO BID Qty: 60 3RF Referrals / Follow Up: Richmond Moent DO [Primary Care Provider] - Disposition Disposition (needs filled in before D/C Order can be placed): Home, Self Care Charges/Coding Visit Charges Inpatient E&M: 42983 Disch Hosp >30min
[2023-02-14 13:31] VITALS: BP 113/95; PULSE 107; RESP 18; TEMP 36.4; O2SAT 100
== END 2023-02-14 13:52 | disposition home or self-care (01) | DRG 897 ==
LOC: ED 21:54 → MS3 22:06
PROVIDERS: Internal Medicine; Admitting Provider Hospitalist; Emergency Provider Emergency Medicine; PCP Family Medicine; Visit Provider Family Medicine
DX: F10.239 Alcohol dependence with withdrawal, unspecified (principal); B37.9 Candidiasis, unspecified; F12.90 Cannabis use, unspecified, uncomplicated; F17.210 Nicotine dependence, cigarettes, uncomplicated; F41.9 Anxiety disorder, unspecified; R82.998 Other abnormal findings in urine; Z79.1 Long term (current) use of non-steroidal anti-inflammatories (NSAID); Y90.8 Blood alcohol level of 240 mg/100 ml or more
CPT/HCPCS: 36415; 80048; 80053; 80076; 80307; 81001; 82077; 84439; 84443; 84703; 85025; 87077; 87086; 87088; 87186; 97802; 99284; 99406; J7030; J7040; A4216; J3490

== ENCOUNTER → 2023-05-24 | Outpatient (CLI) | payer BC, SELFPAY ==
--- NOTE | 2023-05-24 11:23 | RAD_ITS ---
STUDY: X-RAY - RIGHT WRIST REASON FOR EXAM: Female, 37 years old. Rheumatoid arthritis. TECHNIQUE: 3 view(s) of the wrist were obtained. COMPARISON: November 03, 2016. FINDINGS: Normal visualized distal radius and ulna. Normal radiocarpal articulation. Normal distal radioulnar articulation. Normal carpal bones. Normal carpal articulations. Normal carpometacarpal articulation of the thumb. Normal second through fifth carpometacarpal articulations. Normal visualized metacarpal bones. Normal soft tissues. RAD/Wrist min 3 Views IMPRESSION: No interval change. No abnormality. Electronically Signed: Aj Riley MD at 13:21 EST ,
--- NOTE | 2023-05-24 11:23 | RAD_ITS ---
STUDY: X-RAY - LEFT HAND REASON FOR EXAM: Female, 37 years old. Rheumatoid arthritis. TECHNIQUE: 3 view(s) of the hand. COMPARISON: None. FINDINGS: Normal radiocarpal articulation. Normal distal radioulnar joint. Normal visualized carpal bones. Normal carpal articulations Normal carpometacarpal articulation of the thumb. Normal second through fifth carpometacarpal joints. Normal metacarpi. Normal metacarpophalangeal joint of the thumb. Normal interphalangeal joint of the thumb. Normal proximal and distal phalanges of the thumb. Normal metacarpophalangeal joints of the second through fifth fingers. Normal proximal and distal interphalangeal joints of the second through fifth fingers. Normal phalanges of the second through fifth fingers. Normal soft tissues. RAD/Hand Min 3 Views IMPRESSION: Normal x-ray examination of the hand. No acute abnormality or erosive changes. Electronically Signed: Aj Riley MD at 13:23 EST ,
--- NOTE | 2023-05-24 11:23 | RAD_ITS ---
STUDY: X-RAY - CERVICAL SPINE REASON FOR EXAM: Female, 37 years old. RHEUMATOID ARTHRITIS TECHNIQUE: 7 view(s) of the cervical spine were obtained. COMPARISON: 01/29/2015 FINDINGS: Normal anterior atlantoaxial articulation. Normal odontoid process. There is straightening of the normal cervical lordosis. No subluxation on the flexion or extension views to suggest instability. Normal vertebral bodies and endplates. Focal disc space narrowing and osteophyte formation at C5/C6 consistent with degenerative disc disease. Normal visualized intervertebral neuroforamina. The soft tissue structures are unremarkable. RAD/Cerv Spine Obl/Flex/Ext Comp IMPRESSION: Focal degenerative disc disease at C5/C6 with straightening of the normal lordotic curvature. No instability. MRI may be useful. Electronically Signed: Moustapha Burroughs MD at 19:25 EST ,
--- NOTE | 2023-05-24 11:23 | RAD_ITS ---
STUDY: X-RAY - RIGHT HAND REASON FOR EXAM: Female, 37 years old. Rheumatoid arthritis. TECHNIQUE: 3 view(s) of the hand. COMPARISON: None. FINDINGS: Normal radiocarpal articulation. Normal distal radioulnar joint. Normal visualized carpal bones. Normal carpal articulations Normal carpometacarpal articulation of the thumb. Normal second through fifth carpometacarpal joints. Normal metacarpi. Normal metacarpophalangeal joint of the thumb. Normal interphalangeal joint of the thumb. Normal proximal and distal phalanges of the thumb. Normal metacarpophalangeal joints of the second through fifth fingers. Normal proximal and distal interphalangeal joints of the second through fifth fingers. Normal phalanges of the second through fifth fingers. Normal soft tissues. RAD/Hand Min 3 Views IMPRESSION: Normal x-ray examination of the hand. No acute abnormality or erosive changes. Electronically Signed: Aj Riley MD at 13:22 EST ,
--- NOTE | 2023-05-24 11:23 | RAD_ITS ---
STUDY: X-RAY CHEST REASON FOR EXAM: Female, 37 years old. RHEUMATOID ARTHRITIS TECHNIQUE: PA and lateral views of the chest. COMPARISON: 06/21/2022 FINDINGS: The lungs are clear and expanded. There is no demonstrated pleural abnormality. Normal size heart. Normal mediastinum and sherrill. Normal visualized pulmonary arteries. Normal visualized aortic arch and descending thoracic aorta. Normal visualized thoracic spine. Normal visualized ribs, clavicles, and shoulders. There is no demonstrated abnormality of the visualized soft tissue structures of the upper abdomen. RAD/Chest PA and Lateral IMPRESSION: Normal x-ray examination of the chest. Electronically Signed: Moustapha Burroughs MD at 19:27 EST ,
--- NOTE | 2023-05-24 11:23 | RAD_ITS ---
STUDY: X-RAY - LEFT WRIST REASON FOR EXAM: Female, 37 years old. Rheumatoid arthritis. TECHNIQUE: 3 view(s) of the wrist were obtained. COMPARISON: None. FINDINGS: Normal visualized distal radius and ulna. Normal radiocarpal articulation. Normal distal radioulnar articulation. Normal carpal bones. Normal carpal articulations. Normal carpometacarpal articulation of the thumb. Normal second through fifth carpometacarpal articulations. Normal visualized metacarpal bones. Normal soft tissues. RAD/Wrist min 3 Views IMPRESSION: Normal x-ray examination of the wrist. Electronically Signed: Aj Riley MD at 13:22 EST ,
[2023-05-24 15:52] LABS: AST(SGOT) 16 U/L (15-37); Alanine Aminotransfer ALT/SGPT 21 U/L (13-56); BUN 8 mg/dL (7-18); CRP < 2.90 mg/L (0.0-3.0); Creatinine, Serum 0.82 mg/dL (0.55-1.02); EST Glomerular Filtration Rate 84 mL/min (>60); Est Glom Filt Rate - Afr Amer 102 mL/min (>60)
[2023-05-24 15:53] LABS: Erythrocyte Sedimentation Rate 7 mm/hr (0-30)
[2023-05-24 15:55] LABS: Absolute Lymphocyte Count 2.46 X10^3/uL (0.83-4.51); Absolute Neutrophil Count 4.7 X10^3/uL (2.0-7.7); Basophil# 0.07 X10^3/uL; Basophil% 0.8 % (0-1); Eosinophil# 0.26 X10^3/uL; Eosinophils% 3.2 % (0-5); Hematocrit 39.1 % (37-47); Hemoglobin 12.5 g/dL (12.0-15.0); Lymphocyte # 2.46 X10^3/ul (0.83-4.51); Lymphocyte % 29.8 % (19-41); Mean Corpuscular Hgb 30.9 pg (27.0-32.0); Mean Corpuscular Volume 96.5 fL (81-99); Monocyte# 0.77 X10^3/uL; Monocyte% 9.3 % (0-10); NRBC Flagged by Analyzer 0 % (0-5); Neutrophil # 4.66 X10^3/uL (2.7-7.7); Neutrophil % 56.5 % (47-70); Platelet Count 372 K/mm3 (150-450); RBC Distribution Width SD 42.5 fl (35.1-43.9); Red Blood Count 4.05 M/mm3 (4.2-5.4); White Blood Count 8.3 K/mm3 (4.4-11.0)
== END | disposition home or self-care (01) ==
LOC: MTLAB 11:21
PROVIDERS: PCP Family Medicine; Visit Provider Internal Medicine Rheumatology
DX: M06.09 Rheumatoid arthritis without rheumatoid factor, multiple sites (principal)
CPT/HCPCS: 36415; 71046; 72052; 73110; 73130; 82565; 84450; 84460; 84520; 85025; 85652; 86140

== ENCOUNTER → 2023-09-19 | Outpatient (CLI) | payer BC, SELFPAY | END | disposition home or self-care (01) | LOC: SL 09:24 | PROVIDERS: PCP Family Medicine; Referring Provider Family Medicine; Visit Provider Family Medicine | DX: G47.30 Sleep apnea, unspecified (principal) | CPT/HCPCS: 95806 ==

== ENCOUNTER → 2023-09-29 | Outpatient (CLI) | payer BC, SELFPAY ==
[2023-09-29 15:31] LABS: Absolute Neutrophil Count 5.3 X10^3/uL (2.0-7.7); Basophil# 0.05 X10^3/uL; Basophil% 0.5 % (0-1); Eosinophil# 0.12 X10^3/uL; Eosinophils% 1.3 % (0-5); Hematocrit 34.9 % (37-47); Hemoglobin 11.6 g/dL (12.0-15.0); Lymphocyte % 35.6 % (19-41); Mean Corp Hgb Conc 33.2 g/dL (32-36); Mean Corpuscular Hgb 30.5 pg (27.0-32.0); Mean Corpuscular Volume 91.8 fL (81-99); Monocyte# 0.46 X10^3/uL; NRBC Flagged by Analyzer 0 % (0-5); Neutrophil # 5.31 X10^3/uL (2.7-7.7); Neutrophil % 57.3 % (47-70); Platelet Count 454 K/mm3 (150-450); RBC Distribution Width CV 13.9 % (11.6-14.6); RBC Distribution Width SD 46.5 fl (35.1-43.9); White Blood Count 9.3 K/mm3 (4.4-11.0)
[2023-09-29 15:57] LABS: Hepatitis B Surface Antibody Reactive
[2023-09-29 16:01] LABS: Erythrocyte Sedimentation Rate 9 mm/hr (0-30)
[2023-09-29 16:26] LABS: AST(SGOT) 32 U/L (15-37); Alanine Aminotransfer ALT/SGPT 41 U/L (13-56); BUN 11 mg/dL (7-18); CRP < 2.90 mg/L (0.0-3.0); Creatinine, Serum 0.85 mg/dL (0.55-1.02); EST Glomerular Filtration Rate 80 mL/min (>60); Est Glom Filt Rate - Afr Amer 97 mL/min (>60)
[2023-10-02 19:07] LABS: HEPATITIS B SURFACE AG Negative (Negative); Hep C Antibodies Non Reactive (Non Reactive); Hepatitis A AB, Total Negative (Negative); Hepatitis A IgM Antibody Negative (Negative); Hepatitis B Core AB IgM Negative (Negative); QNTFERON TB Mitogen Value > 10.00 IU/mL (.); QNTFERON TB Nil Value 0.01 IU/mL (.); QNTFERON TB1+ Ag Value 0.01 IU/mL (.); QNTFERON TB2+ Ag Value 0.02 IU/mL (.); QNTIFERON TB Positive Criteria Negative (Negative)
== END | disposition home or self-care (01) ==
LOC: MTLAB 11:38
PROVIDERS: PCP Family Medicine; Referring Provider Internal Medicine Rheumatology; Visit Provider Internal Medicine Rheumatology
DX: Z79.899 Other long term (current) drug therapy (principal); L40.0 Psoriasis vulgaris; L73.2 Hidradenitis suppurativa; L92.0 Granuloma annulare; M12.9 Arthropathy, unspecified
CPT/HCPCS: 36415; 80074; 82565; 84450; 84460; 84520; 85025; 85652; 86140; 86480; 86706; 86708

== ENCOUNTER → 2023-12-28 | Outpatient (CLI) | payer BC, SELFPAY ==
[2023-12-28 18:26] LABS: Erythrocyte Sedimentation Rate 4 mm/hr (0-30)
[2023-12-28 18:28] LABS: Absolute Lymphocyte Count 3.58 X10^3/uL (0.83-4.51); Absolute Neutrophil Count 5.9 X10^3/uL (2.0-7.7); Basophil# 0.06 X10^3/uL; Basophil% 0.6 % (0-1); Eosinophil# 0.33 X10^3/uL; Eosinophils% 3.1 % (0-5); Hematocrit 34.7 % (37-47); Hemoglobin 11.4 g/dL (12.0-15.0); Lymphocyte # 3.58 X10^3/ul (0.83-4.51); Lymphocyte % 33.6 % (19-41); Mean Corp Hgb Conc 32.9 g/dL (32-36); Mean Corpuscular Hgb 30.3 pg (27.0-32.0); Mean Corpuscular Volume 92.3 fL (81-99); Mean Platelet Vol. 9.2 fl (6.2-12.0); Monocyte# 0.76 X10^3/uL; Monocyte% 7.1 % (0-10); NRBC Flagged by Analyzer 0 % (0-5); Neutrophil # 5.87 X10^3/uL (2.7-7.7); Neutrophil % 55.1 % (47-70); Platelet Count 422 K/mm3 (150-450); RBC Distribution Width CV 13.8 % (11.6-14.6); RBC Distribution Width SD 45.7 fl (35.1-43.9); Red Blood Count 3.76 M/mm3 (4.2-5.4); White Blood Count 10.7 K/mm3 (4.4-11.0)
[2023-12-28 18:42] LABS: AST(SGOT) 21 U/L (15-37); Alanine Aminotransfer ALT/SGPT 29 U/L (13-56); BUN 12 mg/dL (7-18); CRP < 2.90 mg/L (0.0-3.0); EST Glomerular Filtration Rate 86 mL/min (>60); Est Glom Filt Rate - Afr Amer 103 mL/min (>60)
== END | disposition home or self-care (01) ==
PROVIDERS: PCP Family Medicine; Referring Provider Internal Medicine Rheumatology; Visit Provider Internal Medicine Rheumatology
DX: Z79.899 Other long term (current) drug therapy (principal)
CPT/HCPCS: 36415; 82565; 84450; 84460; 84520; 85025; 85652; 86140

== ENCOUNTER → 2024-05-01 | Outpatient (CLI) | payer BC, SELFPAY ==
--- NOTE | 2024-05-01 09:22 | RAD_ITS ---
STUDY: X-RAY - LEFT ANKLE REASON FOR EXAM: Female, 38 years old. ARTHRITIS TECHNIQUE: 3 view(s) of the ankle. COMPARISON: None. FINDINGS: Tiny irregularities tibial metaphysis suggests previous injury. No other focal acute abnormality. No fractures or dislocations. Normal medial and lateral malleoli. Normal tibiotalar articulation and ankle mortise. Normal visualized talus and calcaneus. The visualized subtalar, talonavicular, calcaneocuboid and tarsal articulations are normal. The soft tissue structures are unremarkable. RAD/Ankle min 3 Views IMPRESSION: No acute fracture, dislocation, or significant arthropathy. Electronically Signed: Hieu Antoine MD at 23:59 EST ,
--- NOTE | 2024-05-01 09:25 | RAD_ITS ---
STUDY: X-RAY - RIGHT ANKLE REASON FOR EXAM: Female, 38 years old. ARTHRITIS TECHNIQUE: 3 views of the right ankle. COMPARISON: None. FINDINGS: Normal visualized distal tibia and fibula. Normal medial and lateral malleoli. Normal tibiotalar articulation and ankle mortise. Intact visualized talus and calcaneus. There is a plantar calcaneal spur. The visualized subtalar, talonavicular, calcaneocuboid and tarsal articulations are normal. There is no demonstrated fracture. The soft tissue structures are unremarkable. RAD/Ankle min 3 Views IMPRESSION: Plantar calcaneal spur. No demonstrated fracture. Electronically Signed: Rajesh Franklin MD at 9:02 EST ,
[2024-05-01 12:18] LABS: Erythrocyte Sedimentation Rate 6 mm/hr (0-30)
[2024-05-01 12:24] LABS: Absolute Lymphocyte Count 1.52 X10^3/uL (0.83-4.51); Basophil# 0.05 X10^3/uL; Basophil% 0.8 % (0-1); Eosinophil# 0.08 X10^3/uL; Eosinophils% 1.3 % (0-5); Hematocrit 37.3 % (37-47); Hemoglobin 12.3 g/dL (12.0-15.0); Lymphocyte # 1.52 X10^3/ul (0.83-4.51); Mean Corpuscular Hgb 31.9 pg (27.0-32.0); Mean Corpuscular Volume 96.6 fL (81-99); Mean Platelet Vol. 10.3 fl (6.2-12.0); Monocyte# 0.38 X10^3/uL; Monocyte% 6.3 % (0-10); NRBC Flagged by Analyzer 0 % (0-5); Neutrophil # 4.03 X10^3/uL (2.7-7.7); Neutrophil % 66.4 % (47-70); Platelet Count 266 K/mm3 (150-450); RBC Distribution Width CV 13.2 % (11.6-14.6); RBC Distribution Width SD 46.8 fl (35.1-43.9); Red Blood Count 3.86 M/mm3 (4.2-5.4); White Blood Count 6.1 K/mm3 (4.4-11.0)
[2024-05-01 12:47] LABS: AST(SGOT) 35 U/L (15-37); Alanine Aminotransfer ALT/SGPT 46 U/L (13-56); BUN 7 mg/dL (7-18); CRP < 2.90 mg/L (0.0-3.0); Creatinine, Serum 0.73 mg/dL (0.55-1.02); EST Glomerular Filtration Rate 96 mL/min (>60); Est Glom Filt Rate - Afr Amer 116 mL/min (>60)
== END | disposition home or self-care (01) ==
LOC: MTLAB 09:19
PROVIDERS: PCP Family Medicine; Referring Provider Internal Medicine Rheumatology; Visit Provider Internal Medicine Rheumatology
DX: M06.09 Rheumatoid arthritis without rheumatoid factor, multiple sites (principal)
CPT/HCPCS: 36415; 73610; 82565; 84450; 84460; 84520; 85025; 85652; 86140

== ENCOUNTER → 2024-11-25 | Outpatient (CLI) | payer BC, SELFPAY ==
[2024-11-25 17:57] LABS: AST(SGOT) 24 U/L (<=31); Alanine Aminotransfer ALT/SGPT 20 U/L (<=34); BUN 13 mg/dL (4-19); Creatinine, Serum 0.81 mg/dL (0.70-1.20); EST Glomerular Filtration Rate 96 (>60)
[2024-11-25 19:38] LABS: Absolute Lymphocyte Count 2.69 X10^3/uL (0.83-4.51); Absolute Neutrophil Count 3.4 X10^3/uL (2.0-7.7); Basophil# 0.03 X10^3/uL; Basophil% 0.5 % (0-1); Eosinophil# 0.18 X10^3/uL; Eosinophils% 2.7 % (0-5); Hematocrit 36.9 % (37-47); Hemoglobin 12.4 g/dL (12.0-15.0); Lymphocyte # 2.69 X10^3/ul (0.83-4.51); Lymphocyte % 40.4 % (19-41); Mean Corp Hgb Conc 33.6 g/dL (32-36); Mean Corpuscular Hgb 30.5 pg (27.0-32.0); Mean Corpuscular Volume 90.7 fL (81-99); Mean Platelet Vol. 9.7 fl (6.2-12.0); Monocyte# 0.34 X10^3/uL; Monocyte% 5.1 % (0-10); NRBC Flagged by Analyzer 0 % (0-5); Neutrophil # 3.41 X10^3/uL (2.7-7.7); Neutrophil % 51.1 % (47-70); Platelet Count 373 K/mm3 (150-450); RBC Distribution Width SD 42.8 fl (35.1-43.9); Red Blood Count 4.07 M/mm3 (4.2-5.4); White Blood Count 6.7 K/mm3 (4.4-11.0)
[2024-11-25 19:50] LABS: Erythrocyte Sedimentation Rate 28 mm/hr (0-30)
[2024-11-27 08:09] LABS: QNTFERON TB Mitogen Value > 10.00 IU/mL (.); QNTFERON TB Nil Value 0.11 IU/mL (.); QNTFERON TB1+ Ag Value 0.09 IU/mL (.); QNTFERON TB2+ Ag Value 0.09 IU/mL (.); QNTIFERON TB Positive Criteria Negative (Negative)
== END | disposition home or self-care (01) ==
LOC: MTLAB 15:19
PROVIDERS: PCP Family Medicine; Referring Provider Internal Medicine Rheumatology; Visit Provider Internal Medicine Rheumatology
DX: M06.09 Rheumatoid arthritis without rheumatoid factor, multiple sites (principal); L73.2 Hidradenitis suppurativa; Z79.899 Other long term (current) drug therapy
CPT/HCPCS: 36415; 82565; 84450; 84460; 84520; 85025; 85652; 86140; 86480

== ENCOUNTER 2025-04-28 13:30 | Outpatient (RCR) | payer BC, SELFPAY ==
[2025-04-14 13:24] VITALS: BP 138/91; PULSE 89; RESP 18; TEMP 36.6
--- NOTE | 2025-04-14 13:55 | LES_PTH ---
PATIENT: FLORENCIA REMY LOC: U#:[id number] AGE/SX: 39/F ROOM: RE04/28/[address]: Dr. Natanael Reyes MD : 1985 BED: DIS: 05/11/2025 SPEC #: [id number] RECD: 04/14/25 14:52 STATUS: OSEI RETae #: [id number] GRACY: 04/14/25 13:[address]: Natanael Reyes DEPT: SURGICAL PATHOLOGY RECD BY: Reed Ventura ENTERED: 04/14/25 14:57 SP TYPE: Lesion OTHR DR: Dr. Richmond Monet, Tissues: A - Inguinal region, NOS Procedures: Surgery Specimen Level IV HEADER OPERATION: Tissue excisional left groin wound PRE-OP DIAGNOSIS: Hidradenitis, non-healing left groin wound TISSUE SUBMITTED: A- Tissue biopsy of left groin wound MICROSCOPIC DIAGNOSIS A. Skin, left groin, excision: - Benign skin with inflamed granulation tissue involving the deep surgical margin - see note. Note: A lesion deep to this excision cannot be ruled out; recommend clinical correlation. MICROSCOPIC DESCRIPTION Slides are reviewed. GROSS DESCRIPTION A. Received in formalin labeled with the patient's name and date of . Designated as L groin wound is a 1.2 x 0.5 x 0.1 cm irregular portion of streeter skin devoid of orientation. The resection margin is inked green and the specimen is serially sectioned and entirely submitted in 1 cassette HI 04/14/2025 CPT:44228
--- NOTE | 2025-04-14 16:24 | HP.PCM_ITS ---
History of Present Illness Date of Service: 04/14/25 History of Wound: FLORENCIA REMY, is a 39 F who presents with Rodriguez stage I left groin hidradenitis with a draining sinus and scar tracks. This been present for several years and she has recently had her hidradenitis better controlled by dermatology on Cosentyx. She reports that this lesion is not getting any better and she would like it removed. Patient's uses a vape pen and I discussed with her cessation. [facility] Medical History (Updated 04/03/25 @ 16:21 by JUSTINA Herrmann) Hidradenitis suppurativa Alcohol abuse SVT (supraventricular tachycardia) Anxiety and depression Migraine Alcohol abuse Smoker Rheumatoid arthritis Multinodular goiter Home Medications ?Medication ?Instructions ?Recorded ?Last Taken ?Type multivitamin,hp-pgoh-mxrartem 27 1 tab PO DAILY supple ment 01/29/14 06/16/22 History mg-0.4 mg tablet hydroxychloroquine 200 mg tablet 200 mg PO BID RA 12/1006/16/22 History (Plaquenil) Held on 04/14/25. Instructions: MD Ordered loratadine 10 mg tablet (Claritin) 10 mg PO BID allerg ies 12/28/17 06/16/22 History omeprazole 40 mg capsule,delayed 40 mg PO DAILY GERD 0 11/19/21 06/16/22 History release etodolac 500 mg tablet 500 mg PO BID 11/24/22 Unkno wn History Held on 04/14/25. Instructions: MD Ordered gabapentin 300 mg capsule 300 mg PO BID 11/24/22 Unkno wn History lorazepam 0.5 mg tablet (Ativan) 0.5 mg PO TID PRN anx iety 11/24/22 Unknown History Held on 04/14/25. Instructions: MD Ordered ondansetron 4 mg disintegrating 4 mg PO Q8H PRN nausea and 11/24/22 Unknown Rx tablet vomiting #20 tabs ursodiol 250 mg tablet 250 mg PO BID #60 tabs 01/09 Unknown Rx Held on 04/14/25. Instructions: Duplicate Order clindamycin phosphate 1 % topical topical BID 04/14/25 Unknown History gel clonidine HCl 0.1 mg tablet 0.1 mg PO TID 04/14/25 Unk nown History cyclobenzaprine 10 mg tablet 10 mg PO TID 04/14/25 Unk nown History fluticasone propionate 50 spray intranasal 04/14/25 Un known History mcg/actuation nasal spray,suspension hydroxyzine pamoate 50 mg capsule 50 mg PO TID 5 Unknown History naltrexone 50 mg tablet 50 mg PO 04/14/25 Unknown Hi story trazodone 50 mg tablet 50 mg PO QPM 04/14/25 Unknow n History Allergy/AdvReac Type Severity Reaction Status Date / Time duloxetine (From Cymbalta) Allergy Severe seizure Verified 04/03/25 15:47 Family History Other Cancer Parkinsons disease Surgical History History of carpal tunnel surgery of right wrist Previous section Social History Smoking Status: Heavy Smoker (>10/day) alcohol intake: former substance use type: marijuana Vital Signs Vital Signs Vital Signs: 04/14/25 13:24 Temperature 98 F Temperature Source Temporal Pulse Rate 89 Respiratory Rate 18 Blood Pressure 138/91 H Blood Pressure Mean 106 Blood Pressure Source Monitor Blood Pressure Position Semi-Fowlers Blood Pressure Location Left Arm Oxygen Delivery Method Room Air Physical Exam Narrative Left groin with Rodriguez stage I hidradenitis suppurativa disease with a scar tract No signs of fluid The area of concern is approximately 1 x 1 x 1 cm Debridement Note Debridement Note Wound debrided: Left groin hidradenitis 1 x 1 x 1 cm Laterality: Left Wound Grade/Stage: Stage III Type of Debridement: Excisional debridement Anesthesia Used: - (5 cc of 1% lidocaine with 1-200,000 epinephrine) Depth: in the subcutaneous layer Percentage of wound debrided: 100 Instrument Used: #15 blade, Forceps and - (And scissors for sharp excision) Tissue Removed: Necrotic fat and scar tissue and hidradenitis suppurativa tracks Severity: Fat Layer Exposed Amount of bleeding with debridement: Moderate Bleeding Controlled with: Compression and gauze Patient tolerated procedure: Patient tolerated procedure well Post-Debridement Measurements and Additional Note: Post-Debridement Measurements/Treatment RM - Nurse 1 - General Ulcer Assessment Start: 04/14/25 13:13 Freq: Status: Active Protocol: WC.LOWEXT Activity Type Activity Date Activity User E-sign Co-sign Detail Recorded Client Recorded Date Recorded By Document 04/14/25 13:24 DC [id number] 04/14/25 13:32 DC 04/14/25 13:24 - Today's Visit Information Type of service Follow-up Visit (Physician/GROUND INSTRUCTOR ADVANCED ) Arrival Mode Ambulatory Accompanied by self Patient Identification Verified (Name & Yes ) Safety Precautions Fall Prevention Vital Signs Temperature (97.8 F-99.1 F) 98 F Temperature Source Temporal Pulse Rate (60-100) 89 Pulse Location Monitor Respiratory Rate (12-18) 18 Respiratory rate source Monitor Oxygen Delivery Method Room Air Blood Pressure (90/60-120/80) 138/91 H Blood Pressure Mean 106 Source Monitor Position Semi-Fowlers Blood Pressure Location Left Arm History Since Last Visit- (Skip if this is Patient's initial visit) Has dressing in place as prescribed Yes Has compression in place as prescribed Yes Has offloadiing in place as prescribed Yes Experienced any changes in pain level or Yes management Left Footwear Regular Shoe Right Footwear Regular Shoe Pain Scale: 0-10 Numeric Is Patient Pain Free? Yes - Nurse 1 - General Ulcer Measurement Start: 04/14/25 13:13 Freq: Status: Active Protocol: Activity Type Activity Date Activity User E-sign Co-sign Detail Recorded Client Recorded Date Recorded By Document 04/14/25 13:24 DC [id number] 04/14/25 13:32 DC 04/14/25 13:24 Wound Center Nurse 1 #1 Left Inner Thigh -Current Size (cm) - Length 0.1 -Current Size (cm) - Width 0.1 -Current Size (cm) - Depth 0.1 -Total Square Cm 0.01 -Date of Last Picture (Recall this 04/14/25 field) -Photo Taken Yes -Tunneling No -Undermining/Tunneling No -Circular Undermining No -Exudate Amt Small -Exudate Type Serous -Wound Margin Flat & Intact -Granulation Amt Large (67-100%) -Granulation Quality Pale,[place] -Necrosis Amt Small (1-33%) -Necrotic Tissue Type Adherent Slough -Texture (Destinee-wound Skin Appearance) Assessed -Moisture (Destinee-wound Skin Appearance) Assessed -Color (Destinee-wound Skin Appearance) Assessed -Temperature (Destinee-wound Skin No Abnormality Appearance) (Pt Warm) -Tenderness on Palpation (Destinee-wound No Skin Appearance) -Ulcer Cleansing Soap and Water -Foul Odor after Cleansing No -Anesthetic Used 5% Lidocaine Gel Lower Limb Edema Present NA WC - Nurse 2 - General Ulcer CM Notes Start: 04/14/25 13:13 Freq: Status: Active Protocol: Activity Type Activity Date Activity User E-sign Co-sign Detail Recorded Client Recorded Date Recorded By Document 04/14/25 13:58 [id number] 04/14/25 13:59 JF Edit Result 04/14/25 13:58 JF (1) [id number] 04/14/25 14:17 JF (1) #1 Left Inner Thigh - Injectable Lidocaine w/ Epi (%) => 1 - Bleeding Controlled with Pressure => Pressure,Chemical => Cauterization ($) 04/14/25 13:58 Wound Center Nurse 2 #1 Left Inner Thigh -Time 13:59 -Correct Patient Yes -Correct Side, Site, Position Yes -Correct Procedure Yes -Procedure Performed Yes -Type of Procedure Debridement -Clinical Debridement Subcutaneous -Tissue Removed Subcutaneous -Post Debridement (cm) - Length 1 -Post Debridement (cm) - Width 1 -Post Debridement (cm) - Depth 1 -Total Square (Post) (cm) 1 -Area of Debridement (cm) - Length 1 -Area of Debridement (cm) - Width 1 -Total Square (Area) (cm) 1 -Tunneling No -Undermining/Tunneling No -Circular Undermining No -Wound/Ulcer Outcome Not Healed -Ulcer Cleansing Rinsed/ Irrigated with Saline -Foul Odor after Cleansing No -Bioengineered Tissue No -Injectable Lidocaine w/ Epi (%) 1 -Bleeding Controlled with Pressure, Chemical Cauterization ( $) -Treatment Response Procedure Tolerated Well -Offloading No -Debridement - Subq, 1st 20sq cm Yes Pain Scale: 0-10 Numeric Is Patient Pain Free? Yes WC - Nurse 3 - General Ulcer D/C NN Start: 04/14/25 13:13 Freq: Status: Active Protocol: Activity Type Activity Date Activity User E-sign Co-sign Detail Recorded Client Recorded Date Recorded By Document 04/14/25 14:17 SHILPA [id number] 04/14/25 14:18 JF 04/14/25 14:17 Wound Care Center Nurse 3 #1 Left Inner Thigh -Ulcer Cleansing Rinsed/ Irrigated with Saline -Foul Odor after Cleansing No -Primary Dressing Applied Aquacel AG 4x4 -Primary Dressing Covered/Secured with Dry Gauze, Secured with Tape -Aquacel AG 4x4 1 Pain Scale: 0-10 Numeric Is Patient Pain Free? Yes WC - Visit Discharge Discharge Condition Stable Ambulatory Status Ambulatory Transportation Private Auto Medication Reconcilliation completed & Yes provided to patient/care provider Clinical Summary of Care Provided Yes Charges/Coding Procedures Integumentary [id number]: [id number] Mitali subq tissue 20 sq cm/< Assessment/Plan Assessment/Plan (1) Hidradenitis suppurativa: CODE(S): L73.2 - Hidradenitis suppurativa PLAN: Aquacel Ag applied Will have patient change daily Follow-up with me in 1 week to check progress Lesion was sent to pathology
--- NOTE | 2025-04-15 10:23 | WC ---
PHOTO-LEFT INNER THIGH 04/14/25
[2025-04-21 13:00] VITALS: BP 121/68; PULSE 67; RESP 16; TEMP 35.8
--- NOTE | 2025-04-21 13:52 | PN.PCM_ITS ---
History of Present Illness Date of Service: 04/21/25 History of Wound: FLORENCIA REMY, is a 39 F who presents with Rodriguez stage I left groin hidradenitis with a draining sinus and scar tracks. This been present for several years and she has recently had her hidradenitis better controlled by dermatology on Cosentyx. She reports that this lesion is not getting any better and she would like it removed. Patient's uses a vape pen and I discussed with her cessation. Subjective Subjective Current encounter, 21 Apr 2025: Doing well with left groin dressing changes no fevers chills or drainage. Reports a pimple on left buttocks and new excoriation in the right chest wall. No pathology back yet excisional left groin hidradenitis wound and scar Objective Data Objective Data Vital Signs: Vital Signs Temp Pulse Resp BP O2 Del Method 96.5 F L 67 16 121/68 H Room Air 04/21/25 13:00 04/21/25 13:00 04/21/25 13:00 04/21/25 13:00 04/14/25 13:24 Oxygen Delivery Method Room Air Charges/Coding Procedures Integumentary 111xxx-113xx: [id number] Mitali subq tissue 20 sq cm/< Physical Exam Narrative Small 0.5 x 0.5 cm excoriation of the right chest wall that is superficial Small pimple on the left buttocks The left groin wound is now 1 x 1 cm and 0.1 cm deep Debridement Note Debridement Note Wound debrided: Left groin wound Laterality: Left Wound Grade/Stage: Stage III Type of Debridement: Excisional debridement Anesthesia Used: 4% Lidocaine Solution Depth: in the subcutaneous layer Percentage of wound debrided: 100 Instrument Used: 5mm curette Tissue Removed: Fibrinous exudate and biofilm Amount of bleeding with debridement: Mild Bleeding Controlled with: Pressure Patient tolerated procedure: Patient tolerated procedure well Post-Debridement Measurements and Additional Note: Post-Debridement Measurements/Treatment - Nurse 1 - General Ulcer Assessment Start: 04/14/25 13:13 Freq: Status: Active Protocol: GURWINDER Activity Type Activity Date Activity User E-sign Co-sign Detail Recorded Client Recorded Date Recorded By Document 04/14/25 13:24 MT [id number] 04/14/25 13:32 MT Document 04/21/25 13:00 CP [id number] 04/21/25 13:03 CP 04/14/25 04/21/25 13:24 13:00 WC - Today's Visit Information Type of service Follow-up Visit Follow-up Visit (Physician/BOOM MAN (Physician/BOOM MAN ) ) Arrival Mode Ambulatory Ambulatory Accompanied by self Patient Identification Verified (Name & Yes ) Safety Precautions Fall Prevention Vital Signs Temperature (97.8 F-99.1 F) 98 F 96.5 F L Temperature Source Temporal Temporal Pulse Rate (60-100) 89 67 Pulse Location Monitor Monitor Respiratory Rate (12-18) 18 16 Respiratory rate source Monitor Observation Oxygen Delivery Method Room Air Blood Pressure (90/60-120/80) 138/91 H 121/68 H Blood Pressure Mean (mm Hg) 106 85 Source Monitor Monitor Position Semi-Fowlers Sitting Blood Pressure Location Left Arm Right Arm History Since Last Visit- (Skip if this is Patient's initial visit) Have you changed medications since your No last visit? Any new allergies or adverse reactions No Had a fall/change in ADL's that may No increase risk of falls Signs or symptoms of abuse and/or No neglect since last visit Have you been in the hospital since your No last visit? Has dressing in place as prescribed Yes Yes Has compression in place as prescribed Yes N/A Has offloadiing in place as prescribed Yes N/A Experienced any changes in pain level or Yes No management Left Footwear Regular Shoe Right Footwear Regular Shoe Pain Scale: 0-10 Numeric Is Patient Pain Free? Yes Yes - Nurse 1 - General Ulcer Measurement Start: 04/14/25 13:13 Freq: Status: Active Protocol: Activity Type Activity Date Activity User E-sign Co-sign Detail Recorded Client Recorded Date Recorded By Document 04/14/25 13:24 MT [id number] 04/14/25 13:32 MT Document 04/21/25 13:00 CP [id number] 04/21/25 13:03 CP Edit Result 04/21/25 13:00 CP (1) [id number] 04/21/25 13:04 CP Edit Result 04/21/25 13:00 CP (2) [id number] 04/21/25 13:08 CP (1) #1 Left Inner Thigh - Current Size (cm) - Length => 1 - Current Size (cm) - Width => 1.4 - Current Size (cm) - Depth => 0.1 - Total Square Cm => 1.4 (2) right axilla - Current Size (cm) - Length => 0.5 - Current Size (cm) - Width => 1 - Current Size (cm) - Depth => 0.1 - Total Square Cm => 0.5 - Date of Last Picture (Recall this => 04/21/25 field) - Epithelialization => None Present - Exudate Amt => None Present - Wound Margin => Flat & Intact - Granulation Amt => Large (67-100%) - Granulation Quality => [place] - Necrosis Amt => None Present (0%) - Texture (Destinee-wound Skin Appearance) => No Abnormality - Moisture (Destinee-wound Skin Appearance) => No Abnormality - Color (Destinee-wound Skin Appearance) => No Abnormality - Temperature (Destinee-wound Skin => No Abnormality (Pt Appearance) => Warm) - Tenderness on Palpation (Destinee-wound => No Skin Appearance) - Ulcer Cleansing => Rinsed/Irrigated => with Saline - Foul Odor after Cleansing => No - Anesthetic Used => 5% Lidocaine Gel 04/14/25 04/21/25 13:24 13:00 Wound Center Nurse 1 right axilla -Current Size (cm) - Length 0.5 -Current Size (cm) - Width 1 -Current Size (cm) - Depth 0.1 -Total Square Cm 0.5 -Date of Last Picture (Recall this 04/21/25 field) -Epithelialization None Present -Exudate Amt None Present -Wound Margin Flat & Intact -Granulation Amt Large (67-100%) -Granulation Quality [place] -Necrosis Amt None Present (0 %) -Texture (Destinee-wound Skin Appearance) No Abnormality -Moisture (Destinee-wound Skin Appearance) No Abnormality -Color (Destinee-wound Skin Appearance) No Abnormality -Temperature (Destinee-wound Skin No Abnormality Appearance) (Pt Warm) -Tenderness on Palpation (Destinee-wound No Skin Appearance) -Ulcer Cleansing Rinsed/ Irrigated with Saline -Foul Odor after Cleansing No -Anesthetic Used 5% Lidocaine Gel #1 Left Inner Thigh -Current Size (cm) - Length 0.1 1 -Current Size (cm) - Width 0.1 1.4 -Current Size (cm) - Depth 0.1 0.1 -Total Square Cm 0.01 1.4 -Date of Last Picture (Recall this 04/14/25 04/21/25 field) -Photo Taken Yes Yes -Tunneling No -Undermining/Tunneling No -Circular Undermining No -Exudate Amt Small Small -Exudate Type Serous Serosanguineous -Wound Margin Flat & Intact Flat & Intact -Granulation Amt Large (67-100%) Large (67-100%) -Granulation Quality Pale,[place] Red -Slough/Fibrin No -Necrosis Amt Small (1-33%) -Necrotic Tissue Type Adherent Slough -Structure Exposed N/A -Texture (Destinee-wound Skin Appearance) Assessed No Abnormality -Moisture (Destinee-wound Skin Appearance) Assessed No Abnormality -Color (Destinee-wound Skin Appearance) Assessed No Abnormality -Temperature (Destinee-wound Skin No Abnormality No Abnormality Appearance) (Pt Warm) (Pt Warm) -Tenderness on Palpation (Destinee-wound No No Skin Appearance) -Ulcer Cleansing Soap and Water Rinsed/ Irrigated with Saline -Foul Odor after Cleansing No No -Anesthetic Used 5% Lidocaine 5% Lidocaine Gel Gel Lower Limb Edema Present NA WC - Nurse 2 - General Ulcer CM Notes Start: 04/14/25 13:13 Freq: Status: Active Protocol: Activity Type Activity Date Activity User E-sign Co-sign Detail Recorded Client Recorded Date Recorded By Document 04/14/25 13:58 [id number] 04/14/25 13:59 Edit Result 04/14/25 13:58 JF (1) [id number] 04/14/25 14:17 Document 04/21/25 13:21 [id number] 04/21/25 13:22 (1) #1 Left Inner Thigh - Injectable Lidocaine w/ Epi (%) => 1 - Bleeding Controlled with Pressure => Pressure,Chemical => Cauterization ($) 04/14/25 04/21/25 13:58 13:21 Wound Center Nurse 2 right axilla -Correct Patient Yes -Correct Side, Site, Position No -Correct Procedure No -Procedure Performed No -Wound/Ulcer Outcome Not Healed #1 Left Inner Thigh -Time 13:59 13:21 -Correct Patient Yes Yes -Correct Side, Site, Position Yes Yes -Correct Procedure Yes Yes -Procedure Performed Yes Yes -Type of Procedure Debridement Debridement -Clinical Debridement Subcutaneous Subcutaneous -Tissue Removed Subcutaneous Subcutaneous -Post Debridement (cm) - Length 1 1 -Post Debridement (cm) - Width 1 1 -Post Debridement (cm) - Depth 1 0.1 -Total Square (Post) (cm) 1 1 -Area of Debridement (cm) - Length 1 1 -Area of Debridement (cm) - Width 1 1 -Total Square (Area) (cm) 1 1 -Tunneling No No -Undermining/Tunneling No No -Circular Undermining No No -Wound/Ulcer Outcome Not Healed Not Healed -Ulcer Cleansing Rinsed/ Rinsed/ Irrigated with Irrigated with Saline Saline -Foul Odor after Cleansing No No -Bioengineered Tissue No No -Injectable Lidocaine w/ Epi (%) 1 -Bleeding Controlled with Pressure, Pressure Chemical Cauterization ( $) -Treatment Response Procedure Procedure Tolerated Well Tolerated Well -Offloading No No -Debridement - Subq, 1st 20sq cm Yes Yes Pain Scale: 0-10 Numeric Is Patient Pain Free? Yes Yes - Nurse 3 - General Ulcer D/C NN Start: 04/14/25 13:13 Freq: Status: Active Protocol: Activity Type Activity Date Activity User E-sign Co-sign Detail Recorded Client Recorded Date Recorded By Document 04/14/25 14:17 [id number] 04/14/25 14:18 Document 04/21/25 13:27 TS [id number] 04/21/25 13:28 04/14/25 04/21/25 14:17 13:27 Wound Care Center Nurse 3 right axilla -Ulcer Cleansing Rinsed/ Irrigated with Saline -Primary Dressing Applied Aquacel AG 2x2 -Primary Dressing Covered/Secured with Dry Gauze, Secured with Tape -Aquacel AG 2x2 1 #1 Left Inner Thigh -Ulcer Cleansing Rinsed/ Rinsed/ Irrigated with Irrigated with Saline Saline -Foul Odor after Cleansing No -Primary Dressing Applied Aquacel AG 4x4 Aquacel AG 2x2 -Primary Dressing Covered/Secured with Dry Gauze, Secured with Tape -Aquacel AG 2x2 0 -Aquacel AG 4x4 1 Pain Scale: 0-10 Numeric Is Patient Pain Free? Yes Yes WC - Visit Discharge Discharge Condition Stable Stable Ambulatory Status Ambulatory Ambulatory Transportation Private Auto Private Auto Medication Reconcilliation completed & Yes No provided to patient/care provider Clinical Summary of Care Provided Yes Yes Assessment/Plan Assessment/Plan (1) Hidradenitis suppurativa: CODE(S): L73.2 - Hidradenitis suppurativa (2) Groin ulcer: CODE(S): L98.479 - Non-pressure chronic ulcer of groin with unspecified severity PLAN: Plan Continue Aquacel Ag to the left groin and apply Aquacel Ag to the right chest excoriation Continue to attempt vaping cessation Plan to biopsy right chest excoriation if it widens or gets bigger (although espitia s not have gunbarrel mosquera characteristics of an acute pyoderma gangrenosum, we are considering this diagnosis if it continues) Patient needs follow-up with me in 1 week
--- NOTE | 2025-04-21 14:37 | WC ---
PHOTO-LEFT GROIN ULCER 04/21/25
[2025-04-28 13:55] VITALS: BP 141/103; PULSE 84; RESP 16; TEMP 36.6
--- NOTE | 2025-04-29 09:11 | WC ---
PHOTO-LEFT GROIN 04/28/25
--- NOTE | 2025-04-29 09:12 | WC ---
PHOTO-RIGHT AXILLA 04/28/25
== END 2025-05-11 23:59 | disposition home or self-care (01) ==
LOC: WC 13:30
PROVIDERS: PCP Family Medicine; Referring Provider Family Medicine; Visit Provider Surgery Plastic and Reconstructive Surgery
DX: L73.2 Hidradenitis suppurativa (principal); F17.210 Nicotine dependence, cigarettes, uncomplicated; F12.90 Cannabis use, unspecified, uncomplicated; L98.47 Non-pressure chronic ulcer of groin
CPT/HCPCS: 11042; 17250; 88305; 99212; 99213; G0463

== ENCOUNTER → 2025-05-01 | Outpatient (CLI) | payer BC, SELFPAY ==
[2025-05-01 18:07] LABS: AST(SGOT) 25 U/L (<=31); Alanine Aminotransfer ALT/SGPT 25 U/L (<=34); Albumin, Serum 4.3 g/dL (3.5-5.0); Alkaline Phosphatase 65 U/L (35-104); Anion Gap 11 (5-15); BUN 17 mg/dL (4-19); BUN/Creat Ratio 20.5 RATIO (10-20); Calcium,Total 9.5 mg/dL (7.6-11.0); Carbon Dioxide 22.0 mmol/L (21.0-32.0); Chloride 106 mmol/L (98-108); Globulin 3.2 g/dL (2.2-4.2); Glucose 90 mg/dL (70-99); Potassium 3.9 mmol/L (3.3-5.1)
== END | disposition home or self-care (01) ==
LOC: MTLAB 16:50
PROVIDERS: PCP Family Medicine; Referring Provider Physician Assistant; Visit Provider Physician Assistant
DX: L73.2 Hidradenitis suppurativa (principal)
CPT/HCPCS: 36415; 80053

== ENCOUNTER → 2025-05-05 | Outpatient (CLI) | payer BC, SELFPAY ==
--- NOTE | 2025-05-05 12:47 | US_ITS ---
PROCEDURE: THYROID 05/05/2025 REASON FOR EXAM: NONTOXIC MULTINODULAR GOITER TECHNIQUE: Procedure Code: USTHY Modality: US Procedure: THYROID COMPARISON: 11 May 2022. FINDINGS: Transcutaneous 2-D grayscale and color Doppler ultrasound of the thyroid gland was performed. MEASUREMENTS: Right lobe: 4.5 x 2 x 1.5 cm. Left lobe: 3.9 x 1.6 x 1.1 cm. Isthmus: 3 mm. RIGHT SIDE: Heterogeneous echotexture. The interpolar right thyroid contains a calcification measuring 0.7 x 0.5 x 0.5 cm. (TR 4) The interpolar right thyroid contains a solid, hypoechoic, wider than tall, smooth nodule measuring 0.5 x 0.5 x 0.4 cm without evidence of echogenic foci. (TR 4) LEFT SIDE: Heterogeneous echotexture. The interpolar left thyroid contains a mixed cystic and solid, hypoechoic, wider than tall, smooth nodule measuring 0.7 x 0.7 x 0.7 cm without evidence of echogenic foci. (TR 3) ISTHMUS: No evidence of nodule or mass. Normal vascularity without microcalcification. No enlarged lymph nodes within the visualized neck. US/Thyroid IMPRESSION: Multinodular thyroid. TI-RADS 4, MODERATELY SUSPICIOUS. RECOMMENDATIONS: Given the stability of these nodules since 2020, no follow up needed. ACR TI-RADS Guidelines TI RADS 1 - Benign; No FNA TI RADS 2- Not Suspicious; No FNA TI RADS 3- Mildly Suspicious; FNA if >2.5cm or Follow if >1.5cm at 1, 3 and 5 y ears. TI RADS 4- Moderately Suspicious; FNA if >1.5cm or Follow if >1cm at 1, 2, 3 an d 5 years. TI RADS 5- Highly Suspicious; FNA if >1cm or Follow if >0.5cm yearly for up to 5 years. Reference: Rik FN, Awilda WD, Georgi WILLOUGHBY et al. ACR Thyroid Imaging, Repor ting and Data System (TI-RADS): White Paper of the ACR TI-RADS Committee. [place] Am Reading Location: [id number]
== END | disposition home or self-care (01) ==
LOC: US 12:41
PROVIDERS: PCP Family Medicine; Referring Provider Family Medicine; Visit Provider Family Medicine
DX: E04.2 Nontoxic multinodular goiter (principal)
CPT/HCPCS: 76536

== ENCOUNTER 2025-05-19 13:29 | Outpatient (RCR) | payer BC, SELFPAY ==
[2025-05-19 13:50] VITALS: BP 147/93; PULSE 74; RESP 18; TEMP 36.4
--- NOTE | 2025-05-19 15:43 | PN.PCM_ITS ---
History of Present Illness Date of Service: 04/21/25 History of Wound: FLORENCIA REMY, is a 39 F who presents with Rodriguez stage I left groin hidradenitis with a draining sinus and scar tracks. This been present for several years and she has recently had her hidradenitis better controlled by dermatology on Cosentyx. She reports that this lesion is not getting any better and she would like it removed. Patient's uses a vape pen and I discussed with her cessation. Subjective Subjective 21 Apr 2025: Doing well with left groin dressing changes no fevers chills or drainage. Reports a pimple on left buttocks and new excoriation in the right chest wall. No pathology back yet excisional left groin hidradenitis wound and scar Current encounter, , 19 May 2025: Doing well. Healed Objective Data Objective Data Vital Signs: Vital Signs Temp Pulse Resp BP O2 Del Method 97.6 F L 74 18 147/93 H Room Air 05/19/25 13:50 05/19/25 13:50 05/19/25 13:50 05/19/25 13:50 05/19/25 13:50 Oxygen Delivery Method Room Air Charges/Coding Visit Charges Office Visits / Consults: [id number] OV L2 Est 10min Physical Exam Narrative The left groin wound healed Acceptable scar No HS tracts Debridement Note Debridement Note No debridement was completed: No debridement was completed today Post-Debridement Measurements and Additional Note: Post-Debridement Measurements/Treatment - Nurse 1 - General Ulcer Assessment Start: 05/19/25 13:50 Freq: Status: Active Protocol: MR.RAMOS Activity Type Activity Date Activity User E-sign Co-sign Detail Recorded Client Recorded Date Recorded By Document 05/19/25 13:50 RB [id number] 05/19/25 13:53 RB 05/19/25 13:50 - Today's Visit Information Type of service Follow-up Visit (Physician/CYTOGENETIC TECHNOLOGIST ) Arrival Mode Ambulatory Transfer Assistance None Patient Identification Verified (Name & Yes ) Patient Requires Transmission-Based No Precautions Vital Signs Temperature (97.8 F-99.1 F) 97.6 F L Temperature Source Temporal Pulse Rate (60-100) 74 Pulse Location Monitor Respiratory Rate (12-18) 18 Respiratory rate source Observation Oxygen Delivery Method Room Air Blood Pressure (90/60-120/80) 147/93 H Blood Pressure Mean (mm Hg) 111 Source Monitor Position Semi-Fowlers Blood Pressure Location Left Arm History Since Last Visit- (Skip if this is Patient's initial visit) Have you changed medications since your No last visit? Any new allergies or adverse reactions No Had a fall/change in ADL's that may No increase risk of falls Signs or symptoms of abuse and/or No neglect since last visit Have you been in the hospital since your No last visit? Has dressing in place as prescribed Yes Has compression in place as prescribed N/A Has offloadiing in place as prescribed N/A Experienced any changes in pain level or No management Left Footwear Regular Shoe Right Footwear Regular Shoe Pain Scale: 0-10 Numeric Is Patient Pain Free? Yes RM - Nurse 1 - General Ulcer Measurement Start: 05/19/25 13:50 Freq: Status: Active Protocol: Activity Type Activity Date Activity User E-sign Co-sign Detail Recorded Client Recorded Date Recorded By Document 05/19/25 13:50 [id number] 05/19/25 13:53 RB 05/19/25 13:50 Wound Center Nurse 1 right axilla -Combined with other wound No #1 Left Inner Thigh -Combined with other wound No -Current Size (cm) - Length 0 -Current Size (cm) - Width 0 -Current Size (cm) - Depth 0 -Total Square Cm 0 -Date of Last Picture (Recall this 05/19/25 field) -Photo Taken Yes -Exudate Amt None Present -Granulation Amt Large (67-100%) -Granulation Quality [place] -Slough/Fibrin No -Necrosis Amt None Present (0 %) -Structure Exposed N/A -Texture (Destinee-wound Skin Appearance) Scarring -Moisture (Destinee-wound Skin Appearance) Assessed -Color (Destinee-wound Skin Appearance) Assessed -Tenderness on Palpation (Destinee-wound No Skin Appearance) -Ulcer Cleansing Wound Cleanser -Foul Odor after Cleansing No WC - Nurse 2 - General Ulcer CM Notes Start: 05/19/25 13:50 Freq: Status: Active Protocol: Activity Type Activity Date Activity User E-sign Co-sign Detail Recorded Client Recorded Date Recorded By Document 05/19/25 14:35 [id number] 05/19/25 14:38 05/19/25 14:35 Wound Center Nurse 2 -Time 14:25 -Correct Patient Yes -Correct Side, Site, Position Yes -Procedure Performed No -Post Debridement (cm) - Length 0 -Post Debridement (cm) - Width 0 -Post Debridement (cm) - Depth 0 -Total Square (Post) (cm) 0 -Area of Debridement (cm) - Length 0 -Area of Debridement (cm) - Width 0 -Total Square (Area) (cm) 0 -Tunneling No -Undermining/Tunneling No -Circular Undermining No -Wound/Ulcer Outcome Healed- Epithelialized -Ulcer Cleansing Not Cleansed -Foul Odor after Cleansing No -Bioengineered Tissue No -Bleeding Controlled with NA Pain Scale: 0-10 Numeric Is Patient Pain Free? Yes WC - Nurse 3 - General Ulcer D/C NN Start: 05/19/25 13:50 Freq: Status: Active Protocol: Activity Type Activity Date Activity User E-sign Co-sign Detail Recorded Client Recorded Date Recorded By Document 05/19/25 14:21 [id number] 05/19/25 14:21 05/19/25 14:21 Wound Care Center Nurse 3 #1 Left Inner Thigh -Primary Dressing Covered/Secured with Dry Gauze Treatment Response Procedure Tolerated Well Pain Scale: 0-10 Numeric Is Patient Pain Free? Yes WC - Visit Discharge Discharge Condition Stable Ambulatory Status Ambulatory Transportation Private Auto Medication Reconcilliation completed & No provided to patient/care provider Clinical Summary of Care Provided Yes Assessment/Plan Assessment/Plan (1) Hidradenitis suppurativa: CODE(S): L73.2 - Hidradenitis suppurativa (2) Groin ulcer: CODE(S): L98.479 - Non-pressure chronic ulcer of groin with unspecified severity PLAN: Plan Healed Continue medical management with dermatology for the hydradenitis prevention F/u as needed Patient happy with the plan
--- NOTE | 2025-05-20 09:20 | WC ---
PHOTO-LEFT GROIN 05/19/25
== END 2025-06-11 23:59 | disposition home or self-care (01) ==
LOC: WC 13:29
PROVIDERS: PCP Family Medicine; Referring Provider Family Medicine; Visit Provider Surgery Plastic and Reconstructive Surgery
DX: L73.2 Hidradenitis suppurativa (principal); L98.47 Non-pressure chronic ulcer of groin
CPT/HCPCS: 99212; G0463